=== PATIENT | female | born 1940 | race Caucasian/White ===

== ENCOUNTER 2023-12-03 12:36 | Observation (INO) ==
[2023-12-03 13:31] LABS: Basophils # (auto) 0.06 K/uL (0.00-0.20); Basophils % (auto) 0.5 %; Eosinophils # (auto) 0.09 K/uL (0.00-0.50); Eosinophils % (auto) 0.8 %; Hematocrit (blood only) 35.5 % (37.0-47.0); Hemoglobin 11.6 g/dl (12.0-16.0); Immature Granulocytes # (auto) 0.04 K/uL (0.01-0.20); Immature Granulocytes % (auto) 0.4 %; Lymphocytes # (auto) 3.21 K/uL (1.20-3.40); Lymphocytes % (auto) 29.4 %; Mean Corpuscular Hgb Conc 32.7 g/dL (32.0-36.0); Mean Corpuscular Volume 91.7 fL (80.0-100.0); Mean Platelet Volume 10.7 fL (9.4-12.4); Monocytes # (auto) 1.32 K/uL (0.11-0.59); Monocytes % (auto) 12.1 %; Neutrophils # (auto) 6.21 K/uL (1.40-6.50); Neutrophils % (auto) 56.8 %; Platelet Count 323 K/uL (130-400); RDW Coefficient of Variation 12.7 % (11.5-14.5); RDW Standard Deviation 41.5 fL (36.4-46.3); Red Blood Count 3.87 M/uL (4.20-5.40); White Blood Count 10.93 K/ul (4.8-10.8)
[2023-12-03 13:58] LABS: Albumin Globulin Ratio 1.3 (0.9-2); Albumin Level 4.2 gm/dl (3.4-5.0); BUN Creatinine Ratio 19.5 (10-20); Bilirubin,Total 0.6 mg/dl (0.2-1.0); Calcium 10.6 mg/dl (8.6-10.3); Creatinine Clr Calc Pharmacy 36.2 ml/min; Est GFR (African American) 44.8 ml/min; Est GFR (Non-African American) 38.6 ml/min; Globulin 3.2 gm/dl (2.5-4.0); Magnesium 1.4 mg/dl (1.7-2.4); Potassium 4.4 mmol/L (3.5-5.1); Total Protein 7.4 gm/dl (6.0-8.3)
[2023-12-03 14:01] LABS: Troponin I High Sensitivity 31.8 pg/ml (0-14)
[2023-12-03 14:05] LABS: Prothrombin Time 11.1 Seconds (9.0-12.0)
--- NOTE | 2023-12-03 14:11 | Emergency Department Note ---
Impression & Plan Generalized weakness, Hypoxia, Abdominal pain, Nausea & vomiting, Hypomagnesemia, Elevated lactic acid level, Non-ST elevation NC (NSTEMI) ED Provider Note HISTORY OF PRESENT ILLNESS: Patient is an 83-year-old female presenting with nausea and vomiting. Patient reportedly has been vomiting and unable to tolerate oral intake for the last 4 days. She is unable to tolerate even her medications. She was seen her primary care provider's office today and given her symptoms, was referred to the emergency department. Patient reports that she has upper abdominal pain. Has had a cholecystectomy and appendectomy in the past. She denies any fevers. Denies any recent sick contact exposures. Reports that she has been very weak in the last few weeks and has had difficulties getting around. Family reports that patient has been unable to ambulate today secondary to her weakness. No recent falls or head injuries. Denies any chest pain or significant shortness of breath. However, at the patient's PCPs office she was reportedly hypoxic to the upper 80s on room air. She does not wear any supplemental oxygen at baseline. Reportedly was off of Ozempic recently and restarted it just prior to her nausea and vomiting starting. ROS: as above PHYSICAL EXAM: Constitutional: Patient appears in no acute distress. HENT: Head: Normocephalic and atraumatic. Eyes: EOMI, PERRL Mouth/Throat: Mucous membranes moist. Neck: Trachea midline. Neck supple. Cardiovascular: RRR, No murmurs, rubs or gallops. Intact distal pulses. Pulmonary/Chest: No respiratory distress. Breath sounds clear and equal bilaterally. No wheezes or rales. Abdominal: Abdomen soft, no rebound or guarding. Epigastric TTP Musculoskeletal: No edema, tenderness or deformity noted. Skin: Warm and dry. No rash, erythema, pallor or cyanosis Psychiatric: Appropriate mood and affect for situation. Neurological: Alert and keenly responsive. CN II-XII grossly intact, moving all extremities equally and fully. MDM: - Vitals signs showed hypertension and tachycardia - History obtained via patient. Patient presents with nausea and vomiting. Patient reportedly has been vomiting and unable to tolerate any oral intake for the last 4 days. She has not been able to take her oral medications. She was seen at her PCPs office today and was also found to be hypoxic on room air and was sent to the emergency department. Family reports patient has been very weak and has been having difficulties getting around. Patient was unable to ambulate today secondary to her weakness. - Chronic conditions affecting care: DM-2; CKD; PVD; hypothyroidism; HTN - Differential diagnoses include, but are not limited to: viral syndrome; electrolyte abnormality; bowel obstruction; pneumonia; UTI - Order placed for continuous cardiac monitoring. At this time, monitor showed rate of 117 bpm with normal sinus rhythm, per my interpretation. - External medical records reviewed. EMS run sheet was reviewed. Patient was given 4 mg of IV Zofran and 350 mg of IV saline. - EKG interpreted by myself showed normal sinus rhythm. Rate 83 bpm. QTc 479. No acute ischemic changes. - Laboratory workup interpreted by myself showed slight leukocytosis (WBC 10.93); elevated lactate (2.3); elevated anion gap (12); CKD (Cr 1.23); elevated troponin (31.8); hypomagnesemia (Mg 1.4) - UA negative for infection - CXR negative for pneumonia, per my interpretation - CT abdomen/pelvis with IV contrast negative for acute pathology. Noted to have trace right pleural effusion - Patient given 1L NS and 4 mg IV zofran for symptomatic management. - Viral respiratory panel negative. - Given 1g IV magnesium for electrolyte replacement - Patient still vomiting and became tachycardic in ER. She is also on a new oxygen requirement. - Discussion was had with grounds caretaker about patient's case and need for admission - Hospitalist consulted for admission. Requested CT PE be obtained, given patient's hypoxia and acidosis. [facility] ASSESSMENT AND PLAN: Diagnosis: nausea and vomiting; hypomagnesemia; generalized weakness; hypoxia; elevated lactic acid; abdominal pain; NSTEMI Plan: admit Past Med/Surg History Medical History (Updated 12/03/23 @ 16:09 by Falguni Carty MD) Diabetes Hypertension CKD (chronic kidney disease) PVD (peripheral vascular disease) Hypothyroidism Lumbar degenerative disc disease History of iron deficiency anemia Esophageal spasm GERD (gastroesophageal reflux disease) Polyneuropathy in diabetes CKD (chronic kidney disease), stage III DM type 2 (diabetes mellitus, type 2) History of palpitations Migraine Rectal bleeding Heart palpitations Hypoxia HTN (hypertension) Osteoarthritis Surgical History H/O colonoscopy H/O esophagogastroduodenoscopy H/O breast biopsy S/P tonsillectomy and adenoidectomy History of hysterectomy S/P appendectomy Hx of cholecystectomy Family History Other Family history non-contributory Social History Smoking Status: Never smoker marital status: Current Living Situation: Spouse current occupational status: retired Feels Safe at Home: Yes Allergies Allergies Allergy/AdvReac Type Severity Reaction Status Date / Time sertraline [From Zoloft] Allergy itching Verified 12/03/23 16:41 venlafaxine [From Effexor] Allergy itching,panic Verified 12/03/23 16:41 attack lisinopril AdvReac Mild Cough Verified 12/03/23 16:41 baclofen AdvReac Unknown Dizziness Verified 12/03/23 16:41 levofloxacin AdvReac Unknown unkn Verified 12/03/23 16:41 meclizine AdvReac Unknown unkn Verified 12/03/23 16:41 tramadol AdvReac Unknown unkn Verified 12/03/23 16:41 nitroglycerin AdvReac passed Verified 12/03/23 16:41 out,hit head NSAIDS (Non-Steroidal AdvReac WORSENING Verified 12/03/23 16:41 Anti-Inflamma OF RENAL FUNCTION Home Meds Home Medications Medication Instructions Recorded Confirmed atorvastatin 40 mg tablet (Lipitor) 40 mg PO QAM 05/09/19 12/03/23 cholecalciferol (vitamin D3) 50 2,000 unit PO DAILY 05/09/19 12/03/23 mcg (2,000 unit) tablet (Vitamin D3) cyanocobalamin (vitamin B-12) 100 100 mcg PO DAILY 05/09/19 12/03/23 mcg tablet (Vitamin B-12) insulin glargine 100 unit/mL (3 26 unit subcut HS 05/09/19 12/03/23 mL) subcutaneous pen (Basaglar KwamberPen U-100 Insulin) latanoprost 0.005 % eye drops 1 drp OPB QPM 05/09/19 12/03/23 (Xalatan) omeprazole 20 mg capsule,delayed 20 mg PO DAILYBB 05/09/19 12/03/23 release amlodipine 2.5 mg tablet 2.5 mg PO DAILY 12/03/23 12/03/23 aspirin 81 mg tablet,delayed 81 mg PO [facility] 12/03/23 12/03/23 release escitalopram oxalate 20 mg tablet 20 mg PO DAILY 12/03/23 12/03/23 hydrocodone 5 mg-acetaminophen 325 1 tab PO Q8 PRN pain,severe 12/03/23 12/03/23 mg tablet levothyroxine 125 mcg tablet 125 mcg PO DAILYBB 12/03/23 12/03/23 losartan 25 mg tablet 25 mg PO M 12/03/23 12/03/23 metoprolol succinate 100 mg 150 mg PO QA 12/03/23 12/03/23 tablet,extended release 24 hr semaglutide 2 mg/dose (8 mg/3 mL) 2 mg subcut WK 12/03/23 12/03/23 subcutaneous pen injector (Ozempic) Results & Data (ED) Vital Signs Vital Signs - 24 hr 12/03/23 12:42 12/03/23 12:52 12/03/23 13:00 Temperature 36.8 C Temperature Source Oral Pulse Rate 82 81 81 Respiratory Rate 22 12 Respiratory Effort / Characteristics Short of Breath Blood Pressure 183/114 H 167/87 H Blood Pressure Mean 137 113 Pulse Oximetry 97 92 Oxygen Delivery Method Room Air Room Air Oxygen Flow Rate Sepsis Recent Fever Within 48 Hours No Sepsis New/Unexplained Change in Mental Status N/A Sepsis Action Taken by Nursing No Action Required Oxygen Flow Rate - Titration Pulse Oximetry Post Tiitration 12/03/23 13:08 12/03/23 13:31 12/03/23 14:00 Temperature Temperature Source Pulse Rate 93 H 101 H Respiratory Rate 16 21 Respiratory Effort / Characteristics Blood Pressure 196/98 H 154/88 H Blood Pressure Mean 130 110 Pulse Oximetry 82 L 92 97 Oxygen Delivery Method Nasal Cannula Nasal Cannula Nasal Cannula Oxygen Flow Rate 0 2 2 Sepsis Recent Fever Within 48 Hours Sepsis New/Unexplained Change in Mental Status Sepsis Action Taken by Nursing Oxygen Flow Rate - Titration 2 Pulse Oximetry Post Tiitration 99 12/03/23 15:02 12/03/23 15:33 12/03/23 16:01 Temperature Temperature Source Pulse Rate 124 H 122 H 113 H Respiratory Rate 35 H 28 H 22 Respiratory Effort / Characteristics Blood Pressure 170/98 H 153/95 H 174/125 H Blood Pressure Mean 122 114 141 Pulse Oximetry 97 97 98 Oxygen Delivery Method Nasal Cannula Nasal Cannula Nasal Cannula Oxygen Flow Rate 2 2 2 Sepsis Recent Fever Within 48 Hours Sepsis New/Unexplained Change in Mental Status Sepsis Action Taken by Nursing Oxygen Flow Rate - Titration Pulse Oximetry Post Tiitration 12/03/23 16:30 Temperature Temperature Source Pulse Rate 109 H Respiratory Rate 18 Respiratory Effort / Characteristics Blood Pressure 128/107 H Blood Pressure Mean 114 Pulse Oximetry 98 Oxygen Delivery Method Nasal Cannula Oxygen Flow Rate 2 Sepsis Recent Fever Within 48 Hours Sepsis New/Unexplained Change in Mental Status Sepsis Action Taken by Nursing Oxygen Flow Rate - Titration Pulse Oximetry Post Tiitration Laboratory Data 12/03/23 12:45 12/03/23 12:45 Lab Results 12/03/23 12/03/23 12/03/23 Range/Units 12:45 12:45 13:01 WBC 10.93 H (4.8-10.8) K/ul RBC 3.87 L (4.20-5.40) M/uL Hgb 11.6 L (12.0-16.0) g/dl Hct 35.5 L (37.0-47.0) % MCV 91.7 (80.0-100.0) fL MCH 30.0 (25.0-34.0) pg MCHC 32.7 (32.0-36.0) g/dL RDW Std Deviation 41.5 (36.4-46.3) fL RDW Coeff of Darlyn 12.7 (11.5-14.5) % Plt Count 323 (130-400) K/uL MPV 10.7 (9.4-12.4) fL Immature Gran % (Auto) 0.4 % Neut % (Auto) 56.8 % Lymph % (Auto) 29.4 % Dickens % (Auto) 12.1 % Eos % (Auto) 0.8 % Baso % (Auto) 0.5 % Neut # (Auto) 6.21 (1.40-6.50) K/uL Lymph # (Auto) 3.21 (1.20-3.40) K/uL Dickens # (Auto) 1.32 H (0.11-0.59) K/uL Eos # (Auto) 0.09 (0.00-0.50) K/uL Baso # (Auto) 0.06 (0.00-0.20) K/uL Immature Gran # (Auto) 0.04 (0.01-0.20) K/uL PT 11.1 (9.0-12.0) Seconds INR 1.0 (0.9-1.1) Sodium 140 (136-145) mmol/L Potassium 4.4 (3.5-5.1) mmol/L Chloride 103 (98-107) mmol/L Carbon Dioxide 25 (21-32) mmol/L Anion Gap 12 H (3-11) BUN 25 H (6-23) mg/dl Creatinine 1.28 H (0.6-1.2) mg/dl Est Cr Clr Drug Dosing 36.2 ml/min Est GFR ( Amer) 44.8 ml/min Est GFR (Non-Af Amer) 38.6 ml/min BUN/Creatinine Ratio 19.5 (10-20) Glucose 125 H (70-99(Fasting)) mg/dl Lactate 2.3 H* (0.4-2.0) mmol/L Calcium 10.6 H (8.6-10.3) mg/dl Magnesium 1.4 L (1.7-2.4) mg/dl Total Bilirubin 0.6 (0.2-1.0) mg/dl AST 18 (13-39) U/L ALT 9 (7-52) U/L Alkaline Phosphatase 85 (34-104) U/L Troponin I High Sens 31.8 H Cancelled (0-14) pg/ml Total Protein 7.4 (6.0-8.3) gm/dl Albumin 4.2 (3.4-5.0) gm/dl Globulin 3.2 (2.5-4.0) gm/dl Albumin/Globulin Ratio 1.3 (0.9-2) Lipase 14 (11-82) U/L Urine Color Urine Appearance (Clear) Urine pH (4.5-7.5) Ur Specific Crump (1.000-1.030) Urine Protein (Negative) Urine Glucose (UA) (Negative) Urine Ketones (Negative) Urine Blood (Negative) Urine Nitrite (Negative) Urine Bilirubin (Negative) Urine Urobilinogen (Negative) Ur Leukocyte Esterase (Negative) Urine WBC (Auto) (0-5) /hpf Urine RBC (Auto) (0-4) /hpf U Hyaline Cast (Auto) (0-5) /lpf U Epithel Cells (Auto) (0-5) /lpf Urine Bacteria (Auto) (Negative) Adenovirus (PCR) (NotDetected) B. pertussis DNA (PCR) (NotDetected) B.parapertussis DNA PCR (NotDetected) C. pneumoniae DNA (PCR) (NotDetected) Coronavirus OC43 (PCR) (NotDetected) Coronavirus HKU1 (PCR) (NotDetected) Coronavirus 229E (PCR) (NotDetected) SARS-CoV-2 (PCR) (NotDetected) Coronavirus NL63 (PCR) (NotDetected) Human Metapneumovir PCR (NotDetected) Influenza Type A (PCR) (NotDetected) Influenza Type B (PCR) (NotDetected) M. pneumoniae (PCR) (NotDetected) Parainfluenza 1 (PCR) (NotDetected) Parainfluenza 2 (PCR) (NotDetected) Parainfluenza 3 (PCR) (NotDetected) Parainfluenza 4 (PCR) (NotDetected) RSV (PCR) (NotDetected) Entero/Rhino (PCR) (NotDetected) 12/03/23 12/03/23 12/03/23 Range/Units 13:03 15:00 15:19 WBC (4.8-10.8) K/ul RBC (4.20-5.40) M/uL Hgb (12.0-16.0) g/dl Hct (37.0-47.0) % MCV (80.0-100.0) fL MCH (25.0-34.0) pg MCHC (32.0-36.0) g/dL RDW Std Deviation (36.4-46.3) fL RDW Coeff of Darlyn (11.5-14.5) % Plt Count (130-400) K/uL MPV (9.4-12.4) fL Immature Gran % (Auto) % Neut % (Auto) % Lymph % (Auto) % Dickens % (Auto) % Eos % (Auto) % Baso % (Auto) % Neut # (Auto) (1.40-6.50) K/uL Lymph # (Auto) (1.20-3.40) K/uL Dickens # (Auto) (0.11-0.59) K/uL Eos # (Auto) (0.00-0.50) K/uL Baso # (Auto) (0.00-0.20) K/uL Immature Gran # (Auto) (0.01-0.20) K/uL PT (9.0-12.0) Seconds INR (0.9-1.1) Sodium (136-145) mmol/L Potassium (3.5-5.1) mmol/L Chloride (98-107) mmol/L Carbon Dioxide (21-32) mmol/L Anion Gap (3-11) BUN (6-23) mg/dl Creatinine (0.6-1.2) mg/dl Est Cr Clr Drug Dosing ml/min Est GFR ( Amer) ml/min Est GFR (Non-Af Amer) ml/min BUN/Creatinine Ratio (10-20) Glucose (70-99(Fasting)) mg/dl Lactate (0.4-2.0) mmol/L Calcium (8.6-10.3) mg/dl Magnesium (1.7-2.4) mg/dl Total Bilirubin (0.2-1.0) mg/dl AST (13-39) U/L ALT (7-52) U/L Alkaline Phosphatase (34-104) U/L Troponin I High Sens 31.5 H (0-14) pg/ml Total Protein (6.0-8.3) gm/dl Albumin (3.4-5.0) gm/dl Globulin (2.5-4.0) gm/dl Albumin/Globulin Ratio (0.9-2) Lipase (11-82) U/L Urine Color Yellow Urine Appearance Clear (Clear) Urine pH 5.5 (4.5-7.5) Ur Specific Crump 1.013 (1.000-1.030) Urine Protein 2+ H (Negative) Urine Glucose (UA) Negative (Negative) Urine Ketones Negative (Negative) Urine Blood 1+ H (Negative) Urine Nitrite Negative (Negative) Urine Bilirubin Negative (Negative) Urine Urobilinogen Negative (Negative) Ur Leukocyte Esterase Negative (Negative) Urine WBC (Auto) 1-5 (0-5) /hpf Urine RBC (Auto) 0-4 (0-4) /hpf U Hyaline Cast (Auto) 1-5 (0-5) /lpf U Epithel Cells (Auto) 20-30 H (0-5) /lpf Urine Bacteria (Auto) Negative (Negative) Adenovirus (PCR) Not Detected (NotDetected) B. pertussis DNA (PCR) Not Detected (NotDetected) B.parapertussis DNA PCR Not Detected (NotDetected) C. pneumoniae DNA (PCR) Not Detected (NotDetected) Coronavirus OC43 (PCR) Not Detected (NotDetected) Coronavirus HKU1 (PCR) Not Detected (NotDetected) Coronavirus 229E (PCR) Not Detected (NotDetected) SARS-CoV-2 (PCR) Not Detected (NotDetected) Coronavirus NL63 (PCR) Not Detected (NotDetected) Human Metapneumovir PCR Not Detected (NotDetected) Influenza Type A (PCR) Not Detected (NotDetected) Influenza Type B (PCR) Not Detected (NotDetected) M. pneumoniae (PCR) Not Detected (NotDetected) Parainfluenza 1 (PCR) Not Detected (NotDetected) Parainfluenza 2 (PCR) Not Detected (NotDetected) Parainfluenza 3 (PCR) Not Detected (NotDetected) Parainfluenza 4 (PCR) Not Detected (NotDetected) RSV (PCR) Not Detected (NotDetected) Entero/Rhino (PCR) Not Detected (NotDetected) 12/03/23 Range/Units 15:25 WBC (4.8-10.8) K/ul RBC (4.20-5.40) M/uL Hgb (12.0-16.0) g/dl Hct (37.0-47.0) % MCV (80.0-100.0) fL MCH (25.0-34.0) pg MCHC (32.0-36.0) g/dL RDW Std Deviation (36.4-46.3) fL RDW Coeff of Darlyn (11.5-14.5) % Plt Count (130-400) K/uL MPV (9.4-12.4) fL Immature Gran % (Auto) % Neut % (Auto) % Lymph % (Auto) % Dickens % (Auto) % Eos % (Auto) % Baso % (Auto) % Neut # (Auto) (1.40-6.50) K/uL Lymph # (Auto) (1.20-3.40) K/uL Dickens # (Auto) (0.11-0.59) K/uL Eos # (Auto) (0.00-0.50) K/uL Baso # (Auto) (0.00-0.20) K/uL Immature Gran # (Auto) (0.01-0.20) K/uL PT (9.0-12.0) Seconds INR (0.9-1.1) Sodium (136-145) mmol/L Potassium (3.5-5.1) mmol/L Chloride (98-107) mmol/L Carbon Dioxide (21-32) mmol/L Anion Gap (3-11) BUN (6-23) mg/dl Creatinine (0.6-1.2) mg/dl Est Cr Clr Drug Dosing ml/min Est GFR ( Amer) ml/min Est GFR (Non-Af Amer) ml/min BUN/Creatinine Ratio (10-20) Glucose (70-99(Fasting)) mg/dl Lactate 3.8 H* (0.4-2.0) mmol/L Calcium (8.6-10.3) mg/dl Magnesium (1.7-2.4) mg/dl Total Bilirubin (0.2-1.0) mg/dl AST (13-39) U/L ALT (7-52) U/L Alkaline Phosphatase (34-104) U/L Troponin I High Sens (0-14) pg/ml Total Protein (6.0-8.3) gm/dl Albumin (3.4-5.0) gm/dl Globulin (2.5-4.0) gm/dl Albumin/Globulin Ratio (0.9-2) Lipase (11-82) U/L Urine Color Urine Appearance (Clear) Urine pH (4.5-7.5) Ur Specific Crump (1.000-1.030) Urine Protein (Negative) Urine Glucose (UA) (Negative) Urine Ketones (Negative) Urine Blood (Negative) Urine Nitrite (Negative) Urine Bilirubin (Negative) Urine Urobilinogen (Negative) Ur Leukocyte Esterase (Negative) Urine WBC (Auto) (0-5) /hpf Urine RBC (Auto) (0-4) /hpf U Hyaline Cast (Auto) (0-5) /lpf U Epithel Cells (Auto) (0-5) /lpf Urine Bacteria (Auto) (Negative) Adenovirus (PCR) (NotDetected) B. pertussis DNA (PCR) (NotDetected) B.parapertussis DNA PCR (NotDetected) C. pneumoniae DNA (PCR) (NotDetected) Coronavirus OC43 (PCR) (NotDetected) Coronavirus HKU1 (PCR) (NotDetected) Coronavirus 229E (PCR) (NotDetected) SARS-CoV-2 (PCR) (NotDetected) Coronavirus NL63 (PCR) (NotDetected) Human Metapneumovir PCR (NotDetected) Influenza Type A (PCR) (NotDetected) Influenza Type B (PCR) (NotDetected) M. pneumoniae (PCR) (NotDetected) Parainfluenza 1 (PCR) (NotDetected) Parainfluenza 2 (PCR) (NotDetected) Parainfluenza 3 (PCR) (NotDetected) Parainfluenza 4 (PCR) (NotDetected) RSV (PCR) (NotDetected) Entero/Rhino (PCR) (NotDetected) Administered Medications Magnesium Sulfate/Dextrose (Magnesium Sulfate / D5w) 1 gm in 100 mls @ 100 mls/hr IV NOW STA Stop: 12/03/23 16:59 Last Admin: 12/03/23 16:27 Dose: 100 mls/hr Documented By: [facility] Discontinued Medications Sodium Chloride (Nss) 1,000 mls @ 999 mls/hr IV .Q1H1M ONE Stop: 12/03/23 16:15 Last Infusion: 12/03/23 16:27 Dose: Infused Documented By: [facility] Admin: 12/03/23 15:18 Dose: 999 mls/hr Documented By: [facility] Sodium Chloride (Nss) 1,000 mls @ 999 mls/hr IV .Q1H1M ONE Stop: 12/03/23 16:42 Last Admin: 12/03/23 16:27 Dose: 999 mls/hr Documented By: LEMUEL Ioversol (Optiray 320 500ml) 87 ml IV ONCE ONE Stop: 12/03/23 14:26 Last Admin: 12/03/23 14:25 Dose: 87 ml Documented By: ENZO Ondansetron HCl (Ondansetron Inj 2 Mg/Ml 2 Ml Vial) 4 mg IV NOW STA Stop: 12/03/23 14:44 Last Admin: 12/03/23 15:11 Dose: 4 mg Documented By: LEMUEL Imaging Data Radiologist's Impression: Abdomen/Pelvis CT 12/03/23 14:08 CT OF THE ABDOMEN AND PELVIS WITH CONTRAST CLINICAL HISTORY: Upper abdominal pain and vomiting. COMPARISON STUDY: CT of the abdomen and pelvis May 24, 2016. TECHNIQUE: Following IV administration of 87 mL of Optiray, axial images of the abdomen and pelvis were obtained from the lung bases to the proximal femurs. Images were reviewed in the axial, sagittal, and coronal planes. IV contrast was administered without complication. Automated exposure control was utilized for the study. A dose lowering technique was utilized adhering to the principles of ALARA. CT DOSE: 1289.13 mGy.cm FINDINGS: A trace right pleural effusion is present. No pneumatosis, free air or portal venous gas is identified. There is no hepatic lesion. Biliary ductal dilatation is similar to prior CT. This is likely related to cholecystectomy. Liver morphology is normal. Spleen, adrenal glands and pancreas are unremarkable. There is no peripancreatic infiltration or fluid. There is no hydronephrosis. Numerous subcentimeter renal lesions are too small to characterize. There is extensive plaque within the abdominal aorta and branch vessels. The appendix is not visualized. Caliber and wall thickness of small and large bowel are normal. There is sigmoid diverticulosis without evidence for acute diverticulitis. There is no lymphadenopathy or ascites. No acute fractures are identified within the visualized skeletal structures. IMPRESSION: 1. No acute process within the abdomen or pelvis. 2. Biliary ductal dilatation, similar to prior CT. This is likely related to cholecystectomy. 3. No bowel obstruction. No bowel wall thickening. 4. Trace right pleural effusion. 5. Extensive plaque within the abdominal aorta and branch vessels. ACT 112: Negative or not required by law. Electronically signed by: James Fine M.D. 12/03/2023 2:49 PM Chest X-Ray 12/03/23 15:57 XR chest 1V portable HISTORY: 83 years-old Female shortness of breath acute shortness of breath COMPARISON: 05/24/2016 TECHNIQUE: AP view of the chest FINDINGS: Cardiac silhouette is enlarged. Atherosclerosis of the aorta. No pneumothorax or overt pulmonary edema. Mild bibasilar atelectasis with blunting of the left costophrenic angle. Degenerative changes of the shoulders and spine. IMPRESSION: No acute process. ACT 112: Negative or not required by law. The above report was generated using voice recognition software. It may contain grammatical, syntax or spelling errors. Electronically signed by: Marco Bullard M.D. 12/03/2023 4:36 PM Discharge Plan Visit Data Chief Complaint: Nausea Stated Complaint: NAUSEA, VOMITING ED Provider: Falguni Carty Discharge Problem: Generalized weakness, Hypoxia, Abdominal pain, Nausea & vomiting, Hypomagnesemia, Elevated lactic acid level, Non-ST elevation NC (NSTEMI) Forms Stand Alone Forms: [facility] Prescriptions Prescriptions: No Action latanoprost [Xalatan] 0.005 % drops 1 drp OPB QPM atorvastatin [Lipitor] 40 mg tablet 40 mg PO QAM cyanocobalamin (vitamin B-12) [Vitamin B-12] 100 mcg Tablet 100 mcg PO DAILY omeprazole 20 mg Capsule,Delayed Release(Dr/Ec) 20 mg PO DAILYBB insulin glargine [Basaglar KwikPen U-100 Insulin] 100 unit/mL (3 mL) insulin pen 26 unit subcut HS cholecalciferol (vitamin D3) [Vitamin D3] 2,000 unit Tablet 2,000 unit PO DAILY escitalopram oxalate 20 mg tablet 20 mg PO DAILY amlodipine 2.5 mg tablet 2.5 mg PO DAILY Ozempic 2 mg/dose (8 mg/3 mL) pen injector 2 mg SUBCUT WK levothyroxine 125 mcg tablet 125 mcg PO DAILYBB aspirin [Aspirin Low-Strength] 81 mg Tablet,Delayed Release (Dr/Ec) 81 mg PO QAM metoprolol succinate 100 mg tablet extended release 24 hr 150 mg PO QAM losartan 25 mg tablet 25 mg PO QAM hydrocodone-acetaminophen 5-325 mg tablet 1 tab PO Q8 PRN (Reason: pain,severe) Referrals Referrals: Alicia Pfeiffer, [Primary Care Provider] -
[2023-12-03] MEDS: OPTIRAY 320 500ml IV ONE (14:25)
[2023-12-03 14:41] LABS: Adenovirus PCR Not Detected (NotDetected); Bordetella parapertussis PCR Not Detected (NotDetected); Bordetella pertussis PCR Not Detected (NotDetected); Chlamydia pneumoniae PCR Not Detected (NotDetected); Coronavirus 229E PCR Not Detected (NotDetected); Coronavirus CoV-2 (COVID19)PCR Not Detected (NotDetected); Coronavirus HKU1 PCR Not Detected (NotDetected); Coronavirus NL63 PCR Not Detected (NotDetected); Coronavirus OC43PCR Not Detected (NotDetected); Human Metapneumovirus PCR Not Detected (NotDetected); Influenza A PCR Not Detected (NotDetected); Influenza B PCR Not Detected (NotDetected); Mycoplasma pneumoniae PCR Not Detected (NotDetected); Parainfluenza Virus 1 PCR Not Detected (NotDetected); Parainfluenza Virus 2 PCR Not Detected (NotDetected); Parainfluenza Virus 3 PCR Not Detected (NotDetected); Parainfluenza Virus 4 PCR Not Detected (NotDetected); Respiratory Syncytial VirusPCR Not Detected (NotDetected); Rhinovirus/Enterovirus PCR Not Detected (NotDetected)
--- NOTE | 2023-12-03 14:51 | CT Scan Report ---
CT OF THE ABDOMEN AND PELVIS WITH CONTRAST CLINICAL HISTORY: Upper abdominal pain and vomiting. COMPARISON STUDY: CT of the abdomen and pelvis May 24, 2016. TECHNIQUE: Following IV administration of 87 mL of Optiray, axial images of the abdomen and pelvis we re obtained from the lung bases to the proximal femurs. Images were reviewed in the axial, sagittal, and coronal planes. IV contrast was administered without complication. Automated exposure control wa s utilized for the study. A dose lowering technique was utilized adhering to the principles of ALARA . CT DOSE: 1289.13 mGy.cm FINDINGS: A trace right pleural effusion is present. No pneumatosis, free air or portal venous gas is identified. There is no hepatic lesion. Biliary ductal dilatation is similar to prior CT. This is li shaun related to cholecystectomy. Liver morphology is normal. Spleen, adrenal glands and pancreas are unremarkable. There is no peripancreatic infiltration or fluid. There is no hydronephrosis. Numerous subcentimeter renal lesions are too small to characterize. There is extensive plaque within the abdom inal aorta and branch vessels. The appendix is not visualized. Caliber and wall thickness of small an d large bowel are normal. There is sigmoid diverticulosis without evidence for acute diverticulitis. There is no lymphadenopathy or ascites. No acute fractures are identified within the visualized skele nereyda structures. IMPRESSION: 1. No acute process within the abdomen or pelvis. 2. Biliary ductal dilatation, similar to prior CT. This is likely related to cholecystectomy. 3. No bowel obstruction. No bowel wall thickening. 4. Trace right pleural effusion. 5. Extensive plaque within the abdominal aorta and branch vessels. ACT 112: Negative or not required by law. Electronically signed by: James Fine M.D. 12/03/2023 2:49 PM
[2023-12-03] MEDS: ONDANSETRON INJ 2 MG/ML 2 ML VIAL IV STA (15:11)
[2023-12-03] MEDS: SODIUM CHLORIDE 0.9% 1,000 ML IV ONE ×2 (15:18→16:27)
[2023-12-03 15:26] LABS: Appearance Urine Clear (Clear); Bacteria Urine Automated Negative (Negative); Bilirubin Urine Negative (Negative); Blood Urine 1+ (Negative); Color Urine Yellow; Epithelial Cell Urine Auto 20-30 /lpf (0-5); Glucose Urine UA Negative (Negative); Ketones Urine Negative (Negative); Leukocyte Esterase Urine Negative (Negative); Nitrite Urine Negative (Negative); Protein Urine 2+ (Negative); RBC Urine Automated 0-4 /hpf (0-4); Specific Gravity Urine 1.013 (1.000-1.030); Urobilinogen Urine Negative (Negative); pH Urine 5.5 (4.5-7.5)
--- NOTE | 2023-12-03 15:53 | Electrocardiogram Report ---
Test Reason : Blood Pressure : / mmHG Vent. Rate : 083 BPM Atrial Rate : 083 BPM P-R Int : 180 ms QRS Dur : 080 ms QT Int : 408 ms P-R-T Axes : 095 -51 058 degrees QTc Int : 479 ms Normal sinus rhythm Left anterior fascicular block Septal infarct , age undetermined Abnormal ECG When compared with ECG of 09-MAY-2019 15:19, QRS duration has decreased Confirmed by Toni Griffin ([id number]) on 12/03/2023 3:47:41 PM Referred By: Alicia Pfeiffer Confirmed By:Toni Griffin
[2023-12-03 16:05] LABS: Troponin I High Sensitivity 31.5 pg/ml (0-14)
[2023-12-03] MEDS: MAGNESIUM SULFATE / D5W 1 GM/100 ML BAG IV STA (16:27)
--- NOTE | 2023-12-03 16:38 | XRay Report ---
XR chest 1V portable HISTORY: 83 years-old Female shortness of breath acute shortness of breath COMPARISON: 05/24/2016 TECHNIQUE: AP view of the chest FINDINGS: Cardiac silhouette is enlarged. Atherosclerosis of the aorta. No pneumothorax or overt pulmonary john a. Mild bibasilar atelectasis with blunting of the left costophrenic angle. Degenerative changes of t he shoulders and spine. IMPRESSION: No acute process. ACT 112: Negative or not required by law. The above report was generated using voice recognition software. It may contain grammatical, syntax o r spelling errors. Electronically signed by: Marco Bullard M.D. 12/03/2023 4:36 PM
--- NOTE | 2023-12-03 16:58 | History & Physical Report ---
Date of Service December 03, 2023 Assessment & Plan (1) Nausea & vomiting: Plan: Uncertain cause but likely related to Ozempic, hold this for now. Effects are expected for a few more days with this weekly dosed medication. Cont supportive care. Clears and advance her diet as tolerated. (2) Hypoxia: Plan: Acute, Uncertain cause. Chest CT pending to rule out PE. Vomiting may also have caused some aspiration pneumonitis? No wheezing and lung exam is clear. Cont oxygen supplementation. Wean oxygen as tolerated. (3) New onset atrial fibrillation: Plan: Went from sinus rhythm into atrial fibrillation in the ER. TSH pending. With hypoxia and shortness of breath, fatigue, leg swelling, rule out PE with chest CT which is ordered. She has recently had a lung infection with persistent cough, respiratory biofire panel is negative, no UTI. CXR is clear. Ongoing nausea and vomiting on the same day she started her Ozempic. Suspect vomiting is 2/2 adverse effect of restarting ozempic at the elevated dose of 2mg. Differential also includes but not limited to GI infection, foodborne illness (history is not consistent with this), or anxiety which is not well controlled. Cont supportive care. Denies abdominal pain and CT a/p unremarkable for colitis, bowel obstruction, etc. Will order echo and will replace magnesium which is 1.4. Calcium elevation likely 2/2 some dehydration, and would repeat with BMP in am with workup if this doesn't resolve to normal range. Troponin is slightly elevated at 31, with repeat the same. Without chest pain, and no EKG findings of acute ischemia, ACS less likely. Suspect troponin elevation is from demand in setting of critically elevated blood pressures. Gave labetalol in the ER with improvement in her BP from 195 systolic to 170/76. She is on metoprolol at home which we will continue. Notably she did not take her medication this morning. Cardiology consulted. Starting heparin now with a chads-vasc of 5. Denies blood per rectum or other bleeding issues. (4) Hypertensive urgency: Plan: Driven partially if not totally by high anxiety state. Ativan PRN, cont Lexapro. Cont home antihypertensives. Labetalol IV now. (5) Elevated lactic acid level: Plan: resolved with IVF given in the ER (6) Hypomagnesemia: Plan: replete with 4gm IV magnesium now and repeat in am. (7) Generalized weakness: Plan: 2/2 illness x 3 weeks. PT/OT to evaluate. (8) Osteoarthritis: Plan: chronic, stable. controls pain with APAP or hydrocodone if severe. Continue. (9) DM type 2 (diabetes mellitus, type 2): Plan: Insulin dependent and on Ozempic rodent exterminator. chronic, A1C is around 9 which is somewhat poor control. Cont with glargine and novolog during this admission. Increase as she starts having more appetite. (10) CKD (chronic kidney disease), stage III: Plan: chronic, stable. Creatinine is at baseline. (11) Hypothyroidism: Plan: chronic, stable. Cont levothyroxine per home regimen. Full Code as discussed with she and her son on admission DVT prophy-heparin Dispo- to PCU. I spent a total [id number] coordinating, documenting, and providing care for this patient excluding time spent in the performance of separately billed services Mary Osorio DO [facility] Hospitalist History of Present Illness Chief Complaint: nausea Primary Care Provider: Alicia Pfeiffer DO 83-year-old diabetic female presents with 2.5 weeks of coughing and then began vomiting with significant nausea and persistent vomiting since Friday evening, a couple of days ago. She has no appetite. She is on insulin. She was recently out of Ozempic for 2 months and restarted 2 mg this last Friday, which is when her vomiting started. Shortness of breath and lower extremity edema is also reported in the past 3 weeks and generalized weakness. She lives alone and is able to ambulate with a cane. no abd pain no diarrhea, nauseated, worse and worse and then throwing up most of the nights tup (soda) helped but then threw up again she has been around lots of people for the holidays all three weeks since coughing she has felt short of breath--feels the coughing is improved. she is hypoxic today and ER physician reports that she was 82% on RA at one point She is doing fine on 2LPM oxygen supplementation Lexapro was recently decreased from 20mg to 10mg per her son, who is at bedside and assists with the history. He feels this worsened her anxiety which was typically under good control prior to this. feet swelling for the past week. No swelling or edema is present on exam today Patient denies any pain in her calves or thighs bilaterally. no chest pain no urinary symptoms normal BMs but hasn't moved her bowels in the last few days hasn't eaten anything x toast this am. Last vomited at 0600 this am. Open to try some broth at this point. ramen noodles and broth last night, able to hold it down . Allergies Allergy/AdvReac Type Severity Reaction Status Date / Time sertraline [From Zoloft] Allergy itching Verified 12/03/23 16:41 venlafaxine [From Effexor] Allergy itching,panic Verified 12/03/23 16:41 attack lisinopril AdvReac Mild Cough Verified 12/03/23 16:41 baclofen AdvReac Unknown Dizziness Verified 12/03/23 16:41 levofloxacin AdvReac Unknown unkn Verified 12/03/23 16:41 meclizine AdvReac Unknown unkn Verified 12/03/23 16:41 tramadol AdvReac Unknown unkn Verified 12/03/23 16:41 nitroglycerin AdvReac passed Verified 12/03/23 16:41 out,hit head NSAIDS (Non-Steroidal AdvReac WORSENING Verified 12/03/23 16:41 Anti-Inflamma OF RENAL FUNCTION Home Medications Medication Instructions Recorded Confirmed Type atorvastatin 40 mg tablet (Lipitor) 40 mg PO QAM 05/09/19 12/03/23 History cyanocobalamin (vitamin B-12) 100 100 mcg PO DAILY 05/09/19 12/03/23 History mcg tablet (Vitamin B-12) insulin glargine 100 unit/mL (3 26 unit subcut HS 05/09/19 12/03/23 History mL) subcutaneous pen (Basaglar KwikPen U-100 Insulin) latanoprost 0.005 % eye drops 1 drp OPB QPM 05/09/19 12/03/23 History (Xalatan) omeprazole 20 mg capsule,delayed 20 mg PO DAILYBB 05/09/19 12/03/23 History release acetaminophen 650 mg tablet 1,300 mg PO QAM PRN Pain 12/03/23 12/03/23 History amlodipine 2.5 mg tablet 2.5 mg PO DAILY 12/03/23 12/03/23 History aspirin 81 mg tablet,delayed 81 mg PO QAM 12/03/23 12/03/23 History release escitalopram oxalate 20 mg tablet 20 mg PO DAILY 12/03/23 12/03/23 History hydrocodone 5 mg-acetaminophen 325 1 tab PO Q8 PRN pain,severe 12/03/23 12/03/23 History mg tablet insulin aspart U-100 100 unit/mL See Rx Instructions .Route .COMPLEX 12/03/23 12/03/23 History (3 mL) subcutaneous pen (Novolog FlexPen U-100 Insulin aspart) levothyroxine 125 mcg tablet 125 mcg PO DAILYBB 12/03/23 12/03/23 History losartan 25 mg tablet 25 mg PO QAM 12/03/23 12/03/23 History metoprolol succinate 100 mg 150 mg PO QAM 12/03/23 12/03/23 History tablet,extended release 24 hr semaglutide 2 mg/dose (8 mg/3 mL) 2 mg subcut WK 12/03/23 12/03/23 History subcutaneous pen injector (Ozempic) Past Med/Surg History Medical History (Updated 12/03/23 @ 19:11 by Mary Osorio DO) Diabetes Hypertension CKD (chronic kidney disease) PVD (peripheral vascular disease) Hypothyroidism Lumbar degenerative disc disease History of iron deficiency anemia Esophageal spasm GERD (gastroesophageal reflux disease) Polyneuropathy in diabetes CKD (chronic kidney disease), stage III DM type 2 (diabetes mellitus, type 2) History of palpitations Migraine Rectal bleeding Heart palpitations Hypoxia HTN (hypertension) Osteoarthritis Surgical History H/O colonoscopy H/O esophagogastroduodenoscopy H/O breast biopsy S/P tonsillectomy and adenoidectomy History of hysterectomy S/P appendectomy Hx of cholecystectomy Family History Other Family history non-contributory Social History (Updated 12/03/23 @ 18:01 by Mary Osorio DO) Smoking Status: Never smoker Tobacco Cessation Education Requested by Patient: No Hx Alcohol Use: No Hx Substance Use: No Preferred Language: Yi marital status: / Current Living Situation: Alone and Spouse current occupational status: retired Feels Safe at Home: Yes Physical Exam Physical Exam: CONSTITUTIONAL: obese, vitals as above, BP went from 175 systolic to 195 systolic since I have been in the room, patient appears anxious EYES: PERRL, normal conjunctivae, no scleral icterus ENT: external ear and nose normal,MMM NECK: trachea midline RESPIRATORY: clear to auscultation bilaterally, no crackles, rales or wheezes, normal respiratory effort CARDIOVASCULAR: tachy rate that is irregular with irreg rhythm, S1 and 2 heard without murmurs, gallops or rubs, no JVD, no peripheral edema CHEST: inspection of chest was normal GASTROINTESTINAL: soft, nontender, ND, no guarding MUSCULOSKELETAL: generalized weakness, head is normocephalic and atraumatic SKIN: warm and dry NEUROLOGIC: CN 2-12 grossly intact, no sensory deficit, normal cognition, normal speech, no tremor PSYCHIATRIC: alert cooperative and oriented to person, place and time. ++anxious, makes good eye contact, language grossly intact, recent and remote memory grossly intact. Results & Data Results & Data Vital Signs (Past 12 Hours) Vital Signs Temp Pulse Resp BP Pulse Ox O2 Del Method O2 Flow Rate 12/03/23 16:30 109 H 18 128/107 H 98 Nasal Cannula 2 12/03/23 16:01 113 H 22 174/125 H 98 Nasal Cannula 2 12/03/23 15:33 122 H 28 H 153/95 H 97 Nasal Cannula 2 12/03/23 15:02 124 H 35 H 170/98 H 97 Nasal Cannula 2 12/03/23 14:00 101 H 21 154/88 H 97 Nasal Cannula 2 12/03/23 13:31 93 H 16 196/98 H 92 Nasal Cannula 2 12/03/23 13:08 82 L Nasal Cannula 0 12/03/23 13:00 81 12 167/87 H 92 Room Air 12/03/23 12:52 81 12/03/23 12:42 36.8 C 82 22 183/114 H 97 Room Air Laboratory Results Short CBC 12/03/23 Range/Units 12:45 WBC 10.93 H (4.8-10.8) K/ul Hgb 11.6 L (12.0-16.0) g/dl Hct 35.5 L (37.0-47.0) % Plt Count 323 (130-400) K/uL BMP 12/03/23 12:45 Sodium 140 Potassium 4.4 Chloride 103 Carbon Dioxide 25 BUN 25 H Creatinine 1.28 H Glucose 125 H Calcium 10.6 H Liver Function 12/03/23 Range/Units 12:45 Total Bilirubin 0.6 (0.2-1.0) mg/dl AST 18 (13-39) U/L ALT 9 (7-52) U/L Alkaline Phosphatase 85 (34-104) U/L Albumin 4.2 (3.4-5.0) gm/dl Urine 12/03/23 Range/Units 15:00 Urine Color Yellow Urine Appearance Clear (Clear) Urine pH 5.5 (4.5-7.5) Ur Specific [place] 1.013 (1.000-1.030) Urine Protein 2+ H (Negative) Urine Glucose (UA) Negative (Negative) Diagnostic Findings Abdomen/Pelvis CT 12/03/23 14:08 CT OF THE ABDOMEN AND PELVIS WITH CONTRAST CLINICAL HISTORY: Upper abdominal pain and vomiting. COMPARISON STUDY: CT of the abdomen and pelvis May 24, 2016. TECHNIQUE: Following IV administration of 87 mL of Optiray, axial images of the abdomen and pelvis were obtained from the lung bases to the proximal femurs. Images were reviewed in the axial, sagittal, and coronal planes. IV contrast was administered without complication. Automated exposure control was utilized for the study. A dose lowering technique was utilized adhering to the principles of ALARA. CT DOSE: 1289.13 mGy.cm FINDINGS: A trace right pleural effusion is present. No pneumatosis, free air or portal venous gas is identified. There is no hepatic lesion. Biliary ductal dilatation is similar to prior CT. This is likely related to cholecystectomy. Liver morphology is normal. Spleen, adrenal glands and pancreas are unremarkable. There is no peripancreatic infiltration or fluid. There is no hydronephrosis. Numerous subcentimeter renal lesions are too small to characterize. There is extensive plaque within the abdominal aorta and branch vessels. The appendix is not visualized. Caliber and wall thickness of small and large bowel are normal. There is sigmoid diverticulosis without evidence for acute diverticulitis. There is no lymphadenopathy or ascites. No acute fractures are identified within the visualized skeletal structures. IMPRESSION: 1. No acute process within the abdomen or pelvis. 2. Biliary ductal dilatation, similar to prior CT. This is likely related to cholecystectomy. 3. No bowel obstruction. No bowel wall thickening. 4. Trace right pleural effusion. 5. Extensive plaque within the abdominal aorta and branch vessels. ACT 112: Negative or not required by law. Electronically signed by: James Fine M.D. 12/03/2023 2:49 PM Chest X-Ray 12/03/23 15:57 XR chest 1V portable HISTORY: 83 years-old Female shortness of breath acute shortness of breath COMPARISON: 05/24/2016 TECHNIQUE: AP view of the chest FINDINGS: Cardiac silhouette is enlarged. Atherosclerosis of the aorta. No pneumothorax or overt pulmonary edema. Mild bibasilar atelectasis with blunting of the left costophrenic angle. Degenerative changes of the shoulders and spine. IMPRESSION: No acute process. ACT 112: Negative or not required by law. The above report was generated using voice recognition software. It may contain grammatical, syntax or spelling errors. Electronically signed by: Marco Bullard M.D. 12/03/2023 4:36 PM Code Status & VTE Plan VTE Prophylaxis Plan VTE Prophylaxis will be ordered: Yes
[2023-12-03] MEDS ORDERED: GLUCOSE 10 TAB/TUBE PO PRN (17:08)
[2023-12-03] MEDS ORDERED: DEXTROSE 50% 50 ML SYRINGE IV PRN (17:08)
[2023-12-03] MEDS ORDERED: GLUCAGON FOR INJ 1 MG VIAL SQ PRN (17:08)
[2023-12-03] MEDS ORDERED: CARBOHYDRATES FOR HYPOGLYCEMIA PO PRN (17:08)
[2023-12-03] MEDS ORDERED: GLUCOSE 40% GEL 15 GM TUBE PO PRN (17:08)
[2023-12-03] MEDS ORDERED: ONDANSETRON INJ 2 MG/ML 2 ML VIAL IV PRN (17:08)
[2023-12-03] MEDS: LABETALOL HCL IV 5 MG/ML 20ML IV STA (18:19)
[2023-12-03] MEDS ORDERED: LORazepam 0.25 MG in SYRINGE 0.25 ML IV PRN (18:34)
[2023-12-03 19:14] LABS: Thyroid Stimulating Hormone 5.157 uIu/ml (0.300-4.500)
[2023-12-03] MEDS: OPTIRAY 320 125ml IV ONE (19:16)
[2023-12-03 19:49] LABS: T4 Free Thyroxine 1.08 ng/dl (0.61-1.60)
[2023-12-03] MEDS: LORazepam 0.25 MG in SYRINGE 0.125 ML IV PRN (19:56)
--- NOTE | 2023-12-03 20:17 | CT Scan Report ---
Exam(s): CTA CHEST IV Amt: 116ml optiray 320 EXAM: CT Angiography Chest With Intravenous Contrast CLINICAL HISTORY: Reason for exam: PE. TECHNIQUE: Axial computed tomographic angiography images of the chest with intravenous contrast. CTDI is 70 mGy and DLP is 1280.56 mGy-cm. Automated exposure control was utilized for the study. A dose lowering technique was utilized adhering to the principles of ALARA. MIP reconstructed images were created and reviewed. COMPARISON: No relevant prior studies available. FINDINGS: Pulmonary arteries: Unremarkable. No acute pulmonary embolism. Aorta: No acute findings. No thoracic aortic aneurysm. Lungs: Unremarkable. No mass. No consolidation. Pleural space: Unremarkable. No focal consolidation, pleural effusion, or pneumothorax. Heart: Mild cardiomegaly. No significant pericardial effusion. No evidence of RV dysfunction. Bones/joints: No acute fracture. No dislocation. Soft tissues: Unremarkable. Lymph nodes: Unremarkable. No enlarged lymph nodes. Gallbladder and bile ducts: Cholecystectomy. IMPRESSION: 1. No acute pulmonary embolism. 2. No focal consolidation, pleural effusion, or pneumothorax. Electronically signed by: Jayden Roberson MD 12/03/23 20:16 PM
[2023-12-03] MEDS: MAGNESIUM SULFATE / D5W 1 GM/100 ML BAG IV SCH (20:59)
[2023-12-03] MEDS: HEPARIN SODIUM/DEXTROSE 25,000 UNITS/500 ML BAG IV SCH (21:00)
[2023-12-03] MEDS: HEPARIN SOD (PORCINE) 1000 UNIT/ML IV ONE (21:00)
--- OUTSIDE RECORDS SUMMARY | 2023-12-03 21:04 | External Medical Summary | Summary of Care ---
Author Name Unknown Organization [facility] Address [address] [facility] [place] [address] Phone [phone] Care Team Providers Care Echocardiography Radiology Technologist Name Role Phone Pfeiffer, Alicia Irish HERRREA Primary Care Provider + [phone] Reason for Visit * Reason Comments eRx-Medication Refill Encounter Details Date Type Department Care Team (Late st Contact Info) Description 11/27/2023 Refill Family Medicine [address] [phone] Erika Swanson PAHalle [address] [place] [address] [place] [address] Allergies Active Allergy Reactions Criticality Noted Date Comments Baclofen Other (Please comment) 01/06/2018 Dizzy, nausea Venlafaxine 09/25/2020 Itching, panic attack Levofloxacin Hemihydrate 03/19/2005 nausea,sleeplessne ss Lisinopril Cough Low 06/01/2013 Meclizine 12/22/2003 made dizziness worse Nitroglycerin 02/28/2022 Passed out, hit head Nsaids Renal complications High 12/26/2008 Worsening of renal function Tramadol Hcl 10/17/2003 dizziness,syncope Sertraline Hcl Itching Low 06/15/2019 itching documented as of this encounter (statuses as of 11/27/2023) Medications Medication Sig Dispensed Refills Start Date End Date Status VITAMIN B-12 100 MCG PO TABSIndications:DM type 2, goal A1c below 7 1 po daily 30 5 10/27/20 07 Active XALATAN 0.005 % OP SOLNIndications: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 30 Tab 0 08/14/20 18 Active Tylenol 8 Hour Arthritis Pain 650 MG Oral Tablet Extended Release Take 1 Tablet by mouth every 8 hours as needed. 0 Active OneTouch Verio In Vitro Strip (Glucose Blood) Use to test blood sugars up to three times daily DxE11.9 100 Strip 3 02/27/20 23 Active BD Pen Needle Mini U/F 31G X 5 MM (Insulin Pen Needle) use 1 PEN NEEDLE to inject MEDICATION subcutaneously 5 times a day 500 Each 3 04/30/20 23 Active Insulin Glargine Solostar 100 UNIT/ML Subcutaneous Solution Pen-injector (Basaglar KwikPen)Indication s:Type 2 diabetes mellitus with stage 3 chronic kidney disease, without long-term current use of insulin ([facility]) inject 26 units subcutaneously at bedtime 30 mL 3 07/31/20 23 Active Ozempic (2 MG/DOSE) 8 MG/3ML Subcutaneous Solution Pen-injector (Semaglutide (2 MG/DOSE)) INJECT 2MG UNDER THE SKIN ONCE WEEKLY 3 mL 1 08/07/20 23 Active Omeprazole 20 MG Oral Capsule Delayed Release (PriLOSEC)Indicati ons:Gastroesophage al reflux disease without esophagitis Take 1 Capsule by mouth in the morning. 1 hour before the first meal of the day. 90 Capsule 3 09/03/20 23 Active amLODIPine Besylate 2.5 MG Oral Tablet (Norvasc)Indicatio ns:HTN, goal below 140/90 Take 1 Tablet by mouth in the morning. 90 Tablet 3 09/03/20 23 Active FreeStyle Oscar 2 Sensor Use as directed. Change every 14 days. 3 Each 3 09/19/20 23 Active HYDROcodone-Acetam inophen 5-325 MG Oral TabletIndications: Degeneration of lumbosacral intervertebral disc Take 1 Tablet by mouth every 8 hours as needed for Pain, Severe. Continued script 30 Tablet 0 09/25/20 23 Active Levothyroxine Sodium 125 MCG Oral Tablet (Levoxyl)Indicatio ns:Acquired hypothyroidism TAKE 1 TABLET BY MOUTH IN THE MORNING. (AT LEAST 30 MIN PRIOR TO BREAKFAST OR OTHER MEDS). 90 Tablet 3 10/16/20 Active NovoLOG FlexPen 100 UNIT/ML Subcutaneous Solution Pen-injector (insulin aspart)Indications :Type 2 diabetes mellitus with hemoglobin A1c goal of less than 7.0% (HCC),Type 2 diabetes mellitus with stage 3b chronic kidney disease, without long-term current use of insulin (HCC) PER SLIDING SCALE 4 TIMES A DAY (APPOX 40 UNITS PER DAY)DX E11.9 36 mL 1 10/22/20 Active Escitalopram Oxalate 20 MG Oral Tablet (Lexapro) One daily 90 Tablet 1 11/25/20 Active Atorvastatin Calcium 40 MG Oral Tablet (Lipitor)Indicatio ns:Dyslipidemia, goal LDL below 100 TAKE 1 TABLET BY MOUTH EVERY DAY IN THE MORNING 90 Tablet 1 11/27/20 Active Losartan Potassium 25 MG Oral Tablet (Cozaar)Indication s:Bradycardia,Esse ntial hypertension with goal blood pressure less than 140/90 TAKE 1 TABLET BY MOUTH EVERY DAY IN THE MORNING 90 Tablet 1 11/27/20 Active Metoprolol Succinate ER 100 MG Oral Tablet Extended Release 24 Hour (toPROL XL) TAKE 1.5 TABLETS BY MOUTH IN THE MORNING. 135 Tablet 3 11/27/20 Active Metoprolol Succinate ER 100 MG Oral Tablet Extended Release 24 Hour (toPROL XL) Take 1.5 Tablets by mouth in the morning. 135 Tablet 3 11/21/20 22 023 Discontinued documented as of this encounter (statuses as of 11/27/2023) Active Problems Problem Noted Date Diagnosed Date Type 2 diabetes mellitus wit h stage 3b chronic kidney disease, with long-term current use of insulin 04/10/2021 Overview: Per CKD protocol Chronic kidney disease, stage 3b 04/10/2021 Overview: Per CKD protocol Spinal stenosis of lumbar re gion without neurogenic claudication 04/02/2021 Hypertensive kidney disease with stage 3b chronic kidney disease 10/09/2020 Overview: Per CKD protocol Abnormal MRI, spine 07/11/2020 Type 2 diabetes mellitus with diabetic neuropath y 05/31/2019 Diabetes mellitus type 2 with peripheral artery disease 05/10/2019 Current moderate episode of major depressive disorder without prior episode 05/10/2019 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 diabetes mellitus 05/03/2019 Type 2 diabetes mellitus wit h hemoglobin A1c goal of less than 8.0% 08/07/2018 Primary osteoarthritis of both hands 01/06/2018 Low HDL (under 40) 11/08/2015 Peripheral sensory neuropathy 09/25/2015 CECILIA inhibitor intolerance 06/01/2013 Esophageal spasm 02/23/2013 Esophageal reflux 05/07/2011 DM type 2 causing neurological disease 1 Degeneration of lumbosacral intervertebral disc 05/16/2010 Severe obesity with body mas s index (BMI) of 35.0 to 39.9 with serious comorbidity 05/14/2010 Overview: Per Obesity Protocol, #19 ICD-10 update of inactive diagnosis Hyperlipidemia with target LDL less than 70 07/2009 Overview: Per Lipid Taxonomy. HTN, goal below 140/90 10/06/2009 Overview: Modified per HTN Taxonomy. Vitamin B deficiency 08/12/2008 CLASSICAL MIGRAINE WITHOU MENTION OF INTRACTABLE MIGRAINE Senile osteoporosis Acquired hypothyroidism documented as of this encounter (statuses as of 11/27/2023) Resolved Problems Problem Noted Date Diagnosed Date Resolved Date Hypertensive kidney disease with CKD stage III 05/10/2019 10/12/2020 Overview: Per CKD protocol Type 2 diabetes mellitus wit h stage 3 chronic kidney disease, with long-term current use of insulin 05/10/2019 04/12/2021 Overview: Per CKD protocol Severe obesity with body mas s index (BMI) of 35.0 to 39.9 with serious comorbidity 08/07/2018 Overview: ICD-10 update of inactive diagnosis Skin ulcer of toe of right f oot, limited to breakdown of skin 08/07/2018 08/10/2019 Vitamin D deficiency 08/07/201803/22/ 020 MEDICATION USE AGREEMENT 09/23/2017 Controlled substance agreement signed 06/30/2017 06/21/2020 Iron deficiency anemia due t o chronic blood loss 06/06/2016 08/23/2022 HTN, goal below 150/90 05/30/201601/03 Overview: Per Nephrology HTN, goal below 140/80 04/25/201605/16 Type 2 diabetes mellitus wit h diabetic chronic kidney disease 09/25/2015 05/31/2019 DM neuropathy, type I diabetes mellitus 09/25/2015 02/22/2016 DM type 2 causing CKD stage 3 09/25/2015 10/19/2015 Seborrheic keratosis 08/23/2015 018 Hypertension goal BP (blood pressure) < 140/90 11/23/2014 06/24/2016 Lumbar degenerative disc disease 07/29/2013 07/29/2013 Type 2 diabetes mellitus wit h hemoglobin A1c goal of less than 7.0% 12/30/2011 08/07/2018 Overview: ICD-10 update of inactive term PVD (PERIPHERAL VASCULAR DIS EASE) DUE DIABETES (250.7=) 08/27/2011 06/11/2019 ANGIOEDEMA 06/07/2011 01/06/2018 Other specified urticaria 06/07/2011 Overview: began 05/02/2011 Diabetic polyneuropathy 01/16/201109/01 Overview: ICD-10 update of inactive term HTN, goal below 130/80 10/18/200911/23 Type 2 diabetes mellitus wit h hemoglobin A1c goal of less than 7.0% 09/14/2009 12/03/2011 Overview: Modified per Diabetes protocol #14. ICD-10 update of inactive term Slow transit constipation 04/28/2009 DM type 2, not at goal 04/11/200909/14 Overview: Modified per Diabetes protocol #14. Primary localized osteoarthrosis, lower leg 12/29/2008 01/06/2018 Mixed dyslipidemia 09/09/2008 9 Overview: Per Lipid Taxonomy. Other iron deficiency anemia 09/09/2008 02/23/2013 Overview: ICD-10 update of inactive term DIAB RENAL MANIF ADULT 06/22/200809/25 Overview: Added per DM w/ renal complications protocol #4 Kidney disease, chronic, sta ge III (GFR 30-59 ml/min) 01/13/2008 06/10/2019 Overview: Based on labs 08-07-07 BENIGN HYPERTENSION 11/10/2003 10/06/20 Overview: Modified per HTN Taxonomy. Palpitations 08/25/2017 Type 2 diabetes mellitus wit h hemoglobin A1c goal of less than 7.0% 04/11/2009 Overview: ICD-10 update of inactive term PURE HYPERCHOLESTEROLEM 08/31 Hypothyroidism 08/12/2008 Calculus of gallbladder with out mention of cholecystitis or obstruction 08/12/2008 Abnormal results of liver function studies 06/26/2010 documented as of this encounter (statuses as of 11/27/2023) Immunizations Name Administration Dates Next Due COVID-19 mRNA, LNP-s, No Pre serve, 2-Dose Series (Moderna) 02/01/2021,01/04/2021 H1N1 2009 Influenza, IM 10/01/2009 Pneumococcal Conjugate Vacc, 13 Valent (Prevnar) 01/16/2015 Pneumococcal Polysaccharide PPV23 (Pneumovax) 06/13/2006,09/10/1995 Season Influenza, Quad, PF, Adjuvanted, 65+ Yrs, IM (FLUAD) 09/08/2020 Seasonal Influenza, PF, 6 M & above, IM , (FluLaval or Fluzone) 09/21/2018,08/25/2017 Seasonal Influenza, Quadriva lent Hd (Fluzone Hd) 09/03/2023,08/14/2022,08/14/2021 Seasonal Influenza, Quadriva lent, No Preserve, IM 09/19/2016,09/25/2015 Seasonal Influenza, Split, I IV3, With Preserve, Inj 08/22/2014,09/08/2013,08/12/2012,08/27,08/16/2010,09/05/2009,09/09/2008 ,09/17/2007,09/12/2006 Seasonal Influenza, Trivalen t, Adjuvanted, 65+ yrs 09/13/2019 TD, Preservative Free 08/12/2008 TDAP (age 10 and older)(Boostrix) 11/12/2018 Varicella Zoster Vaccine (Adult) 12/01/2009 Zoster Vaccine Recombinant (Shingrix) 05/19/2020 ,01/03/2020,08/07/2018 documented as of this encounter Social History Tobacco Use Types Packs/Day Years Used Date Smoking Tobacco: Never Smokeless Tobacco: Never Comments:no passive smoke ex posures Alcohol Use Standard Drinks/Week Comments No 0 (1 standard drink = 0.6 oz pur e alcohol) PHQ-2 Answer Date Recorded PHQ Adult Total Score 0 02/12/2022 Hunger Vital Sign Answer Date Recorded Worried About Running Out of Food in the Last Ye ar Never true 08/10/2019 Ran Out of Food in the Last Year Never true 08/10/2019 Sex and Gender Information Value Date Recorded Sex Assigned at Not on file Gender Identity Not on file Sexual Orientation Straight 10/02/2019 3: 49 PM EDT Job Start Date Occupation Industry Not on file Not on file Not on file documented as of this encounter Miscellaneous Notes * Telephone Encounter - Vinod Duncan RPh - 11/27/2023 10:13 PM EST Signed Prescriptions: Disp Refills Metoprolol Succinate ER 100 MG Oral Tablet*135 Ta*3 Sig: TAKE 1.5 TABLETS BY MOUTH IN THE MORNING.Authorizing Provider: ERIKA SWANSON User: VINOD DUNCAN documented in this encounter Plan of Treatment Upcoming Encounters Date Type Department Care Team (Late st Contact Info) Description 11/28/2023 10:30 AM EST Office Visit [facility] Medicine [address] [place] [phone] Alicia Pfeiffer, [address] [place] [id number] 03/19/2024 2:30 PM EDT Office Visit Family Medicine [address] [place] [phone] Alicia Pfeiffer, [address] [place] [phone] Health Maintenance Due Date Last Done Comments Hepatitis B (1 of 3 - Risk 3-dose series) 2000 *BISPHONATE OR OTHER ACCEPTABLE MEDICATION NEEDED FOR OSTEOPOROSIS (REFER TO SMARTSET #1146) 09/18/2022 Depression Screening 02/12/2023 02/12/2022 Albumin/Creatinine Ratio 02/29/2024 023, 05/17/2022, 08/07/2021, Additional history exists Diabetic Foot Exam 02/29/2024 02/28/2023, 0 02/12/2022, 04/10/2021, Additional history exists GFR 03/04/2024 09/03/2023, 03/2023, 07/24/2023, Additional history exists HbA1c 03/04/2024 09/03/2023, 01/31, 11/21/2022, Additional history exists Diabetic Eye Exam 08/18/2024 08/18/2023, , 05/26/2020, Additional history exists DXA Scan 08/27/2024 08/27/2022, 0 03/2016, 10/05/2013, Additional history exists CKD HGB USE SMARTSET 54722 09/03/202409/03, 09/03/2023, 07/24/2023, Additional history exists CKD PHOS USE SMARTSET 14282 09/03/2024 100 03/2023, 05/17/2022, 01/29/2021, Additional history exists TSH 09/03/2024 09/03/2023, 01/31, 06/14/2022, Additional history exists DTaP,Tdap,and Td Vaccines (2 - Td or Tdap) 11/12/2028 11/12/2018, 08/12/2008 Pneumococcal Vaccine: 65+ Years Completed 01/16/2015, 06/13/2006, 09/10/1995 Zoster Vaccines Completed 05/19/2020, 01/2020, 08/07/2018, Additional history exists VITAMIN D LEVEL ONCE IN A LIFETIME-USE SMARTSET# 01500 Completed 01/29/2021, 06/07/2020, 07/12/2019, Additional history exists COVID-19 Vaccine Completed 09/03/2023, 03/2021, 01/04/2021 Influenza Vaccine (FLU shot) Completed 03/2023, 08/14/2022, 08/14/2021, Additional history exists GARDASIL-HPV IMMUNIZATION SERIES Aged Out No longer eligible based on patient's age to complete this topic MENINGOCOCCAL (MENACTRA/MENVEO) Aged Out No longer eligible based on patient's age to complete this topic documented as of this encounter Medical Devices Not on filedocumented as of this encounter Care Teams Echocardiography Radiology Technologist Relationship Specialty Start Date End Date Alicia Pfeiffer DO [address] [place] [address] [place] [phone] PCP - General Internal Medicine 08/25/17 documented as of this encounter
--- OUTSIDE RECORDS SUMMARY | 2023-12-03 21:05 | External Medical Summary | Summary of Care ---
Author Name Unknown Organization [facility] Address [address] [facility] [place] [address] Phone [phone] Care Team Providers Care Sas Developer Name Role Phone Alicia Pfeiffer DO Primary Care Provider + [phone] Reason for Visit * Reason Onset Date Comments Medication Question 11/25/2023 Encounter Details Date Type Department Care Team (Late st Contact Info) Description 11/25/2023 Telephone Family Medicine [address] [place] [phone] Alicia Pfeiffer DO [address] [place] [address] [place] [address] Medication Question Allergies Active Allergy Reactions Criticality Noted Date [...] as of this encounter (statuses as of 11/25/2023) Medications Medication Sig Dispensed Refills Start Date End Date Status VITAMIN B-12 100 MCG PO TABSIndications:DM type 2, goal A1c below 7 1 po daily 30 5 7 Active XALATAN 0.005 % OP SOLNIndications:Oth er specified glaucoma one drop each eye in the evening 0 1 Active Aspirin 81 MG TabletIndications:T ype 2 diabetes mellitus with hemoglobin A1c goal of less than 8.0% ([facility]) Take 1 Tablet by mouth in the morning. 30 Tab 0 8 Active Tylenol 8 Hour Arthritis Pain 650 MG Oral Tablet Extended Release Take 1 Tablet by mouth every 8 hours as needed. 0 Active Metoprolol Succinate ER 100 MG Oral Tablet Extended Release 24 Hour (toPROL XL) Take 1.5 Tablets by mouth in the morning. 135 Tablet 3 2 Active Losartan Potassium 25 MG Oral Tablet (Cozaar)Indications :Bradycardia,Essent ial hypertension with goal blood pressure less than 140/90 Take 1 Tablet by mouth in the morning. 90 Tablet 3 2 Active Atorvastatin Calcium 40 MG Oral Tablet (Lipitor)Indication s:Dyslipidemia, goal LDL below 100 Take 1 Tablet by mouth in the morning. 90 Tablet 3 2 Active OneTouch Verio In Vitro Strip (Glucose Blood) Use to test blood sugars up to three times daily DxE11.9 100 Strip 3 3 Active BD Pen Needle Mini U/F 31G X 5 MM (Insulin Pen Needle) use 1 PEN NEEDLE to inject MEDICATION subcutaneously 5 times a day 500 Each 3 3 Active Insulin Glargine Solostar 100 UNIT/ML Subcutaneous Solution Pen-injector (Basaglar KwamberPen)Indications :Type 2 diabetes mellitus with stage 3 chronic kidney disease, without long-term current use of insulin ([facility]) inject 26 units subcutaneously at bedtime 30 mL 3 3 Active Ozempic (2 MG/DOSE) 8 MG/3ML Subcutaneous Solution Pen-injector (Semaglutide (2 MG/DOSE)) INJECT 2MG UNDER THE SKIN ONCE WEEKLY 3 mL 1 3 Active Omeprazole 20 MG Oral Capsule Delayed Release (PriLOSEC)Indicatio ns:Gastroesophageal reflux disease without esophagitis Take 1 Capsule by mouth in the morning. 1 hour before the first meal of the day. 90 Capsule 3 3 Active amLODIPine Besylate 2.5 MG Oral Tablet (Norvasc)Indication s:HTN, goal below 140/90 Take 1 Tablet by mouth in the morning. 90 Tablet 3 3 Active FreeStyle Oscar 2 Sensor Use as directed. Change every 14 days. 3 Each 3 3 Active HYDROcodone-Acetami nophen 5-325 MG Oral TabletIndications:D egeneration of lumbosacral intervertebral disc Take 1 Tablet by mouth every 8 hours as needed for Pain, Severe. Continued script 30 Tablet 0 3 Active Levothyroxine Sodium 125 MCG Oral Tablet (Levoxyl)Indication s:Acquired hypothyroidism TAKE 1 TABLET BY MOUTH IN THE MORNING. (AT LEAST 30 MIN PRIOR TO BREAKFAST OR OTHER MEDS). 90 Tablet 3 3 Active NovoLOG FlexPen 100 UNIT/ML Subcutaneous Solution Pen-injector (insulin aspart)Indications: Type 2 diabetes mellitus with hemoglobin A1c goal of less than 7.0% ([facility]),Type 2 diabetes mellitus with stage 3b chronic kidney disease, without long-term current use of insulin ([facility]) PER SLIDING SCALE 4 TIMES A DAY (APPOX 40 UNITS PER DAY)DX E11.9 36 mL 1 3 Active Escitalopram Oxalate 20 MG Oral Tablet (Lexapro) One daily 90 Tablet 1 3 Active Escitalopram Oxalate 10 MG Oral Tablet (Lexapro) Take 1 Tablet by mouth in the morning. 90 Tablet 3 3 11/25/20 23 Discontinu ed(Refill) documented as of this encounter (statuses as of 11/25/2023) Active Problems Problem Noted Date Diagnosed Date [...] as of this encounter (statuses as of 11/25/2023) Resolved Problems Problem Noted Date Diagnosed Date [...] of skin 08/07/2018 08/10/2019 Vitamin D deficiency 08/07/2018 020 MEDICATION USE AGREEMENT 09/23/2017 Controlled substance [...] lower leg 12/29/2008 01/06/2018 Mixed dyslipidemia 09/09/2008 12 9 Overview: Per Lipid Taxonomy. Other iron [...] as of this encounter (statuses as of 11/25/2023) Immunizations Name Administration Dates Next Due COVID-19 mRNA, LNP-s, No Pre serve, 2-Dose Series (Moderna) 02/01/2021,01/04/2021 H1N1 2009 Influenza, IM 10/01/2009 Influenza, Whole Virus 10/08/2000,1998,10/04/1998,08/31 Pneumococcal Conjugate Vacc, 13 Valent (Prevnar) 01/16/2015 Pneumococcal Polysaccharide PPV23 (Pneumovax) 06/13/2006,09/10/1995 Season Influenza, Quad, PF, Adjuvanted, 65+ Yrs, IM (FLUAD) 09/08/2020 Seasonal Influenza, PF, 6 M & above, IM , (FluLaval or Fluzone) 09/21/2018,08/25/2017 Seasonal Influenza, Quadriva lent Hd (Fluzone Hd) 09/03/2023,08/14/2022,08/14/2021 Seasonal Influenza, Quadriva lent, No Preserve, IM 09/19/2016,09/25/2015 Seasonal Influenza, Split, I IV3, With Preserve, Inj 08/22/2014,09/08/2013,08/12/2012,08/02,08/16/2010,09/05/2009,09/09/20 08,09/17/2007,09/12/2006,09/26/2005,1 ,09/27/2003,09/27/2002,11/0911/09/2002 Seasonal Influenza, Trivalen t, Adjuvanted, 65+ yrs [...] as of this encounter Miscellaneous Notes * Addendum Note - Josiah Roque MD - 11/25/2023 1:31 PM ESTAddended by: JOSIAH ROQUE on: 11/25/2023 01:31 PM Modules accepted: Orders * Telephone Encounter - Josiah Roque MD - 11/25/2023 1:31 PM EST Sent to [facility] * Telephone Encounter - Avril Curiel [facility] - 11/25/2023 1:13 PM EST Pt calling in to request a dose change on their Lexapro. Current dose: 10 MG Requested dose: 20 mg Reason for request: not working - anxiety has been bad Daughter, Natalya, says patient is agreeable for increase in dose. Please advise. She would prefer a call back to day. Thanks, Avril Curiel [facility] Clinical Pharmacist [facility] (Former[facility]) [phone] * Telephone Encounter - Dolly Abraham CPhT - 11/25/2023 1:10 PM EST Pt calling in to request a dose change on their Lexapro. Current dose: 10 MG Requested dose: 20 mg Reason for request: not working - anxiety has been bad Preferred pharmacy: [facility] #[id number] Warm-transferred pt to pharmacist for consultation. Thank you, Dolly Abraham CPht Curling Machine Operator II [facility] ([facility] ([facility]) 11/25/2023, 1:11 PM documented in this encounter Plan of Treatment Upcoming Encounters Date Type Department Care Team (Late st Contact Info) Description 03/19/2024 2:30 PM EDT Office Visit Family Medicine [address] [place] [address] [address]fe[address] [place] [phone] Health Maintenance Due Date Last Done Comments Hepatitis B (1 of 3 - Risk 3-dose series) 2000 *BISPHONATE OR OTHER ACCEPTABLE MEDICATION NEEDED FOR OSTEOPOROSIS (REFER TO SMARTSET #1146) 09/18/2022 Depression Screening 02/12/2023 02/12/2022 Albumin/Creatinine Ratio 02/29/2024 023, 05/17/2022, 08/07/2021, Additional history exists Diabetic Foot Exam 02/29/2024 02/28/2023, 0 02/12/2022, 04/10/2021, Additional history exists GFR 03/04/2024 09/03/2023, 0 03/2023, 07/24/2023, Additional history exists HbA1c 03/04/2024 09/03/2023, 01/31, 11/21/2022, Additional history exists Diabetic Eye Exam 08/18/2024 08/18/2023, , 05/26/2020, Additional history exists DXA Scan 08/27/2024 08/27/2022, 03/2016, 10/05/2013, Additional history exists CKD HGB USE SMARTSET 13569 09/03/202409/03, 09/03/2023, 07/24/2023, Additional history exists CKD PHOS USE SMARTSET 12110 09/03/20240 03/2023, 05/17/2022, 01/29/2021, Additional history exists TSH 09/03/2024 09/03/2023, 01/31, 06/14/2022, Additional history exists DTaP,Tdap,and Td Vaccines (2 - Td or Tdap) 11/12/2028 11/12/2018, 08/12/2008 Pneumococcal Vaccine: 65+ Years Completed 01/16/2015, 06/13/2006, 09/10/1995 Zoster Vaccines Completed 05/19/2020, 01/2020, 08/07/2018, Additional history exists VITAMIN D LEVEL ONCE IN A LIFETIME-USE SMARTSET# 47983 Completed 01/29/2021, 06/07/2020, 07/12/2019, Additional history exists [...] filedocumented as of this encounter Care Teams Sas Developer Relationship Specialty Start Date End Date Alicia Pfeiffer DO [address] [place] [address] [place] [id number] PCP - General Internal Medicine 08/25/17 documented as of this encounter
--- OUTSIDE RECORDS SUMMARY | 2023-12-03 21:05 | External Medical Summary | Summary of Care ---
Author Name Unknown Organization [facility] Address [address] [place] [address] Phone [phone] Care Team Providers Care Glass Crusher Name Role Phone SummersClif henson Masergio HERRERA Primary Care Provider + [phone] Reason for Visit * Reason Comments eRx-Medication Refill Encounter Details Date Type Department Care Team (Late st Contact Info) Description 11/26/2023 Refill Family Medicine [address] [phone] Erika Bernabe, PAEdithC [address] [place] [address] [place] [address] Dyslipidemia, goal LDL below 100; Bradycardia; Essential hypertension with goal blood pressure less than 140/90 Allergies Active Allergy Reactions Criticality Noted Date [...] hemoglobin A1c goal of less than 8.0% ([facility]) Take 1 Tablet by mouth in [...] the morning. 135 Tablet 3 11/21/20 22 Active OneTouch Verio In Vitro Strip (Glucose [...] disease, without long-term current use of insulin ([facility]) inject 26 units subcutaneously at bedtime [...] Severe. Continued script 30 Tablet 0 09/25/20 Active Levothyroxine Sodium 125 MCG Oral Tablet (Levoxyl)Indicatio ns:Acquired hypothyroidism TAKE 1 TABLET BY MOUTH IN THE MORNING. (AT LEAST 30 MIN PRIOR TO BREAKFAST OR OTHER MEDS). 90 Tablet 3 10/16/20 Active NovoLOG FlexPen 100 UNIT/ML Subcutaneous Solution Pen-injector (insulin aspart)Indications :Type 2 diabetes mellitus with hemoglobin A1c goal of less than 7.0% ([facility]),Type 2 diabetes mellitus with stage 3b chronic kidney disease, without long-term current use of insulin ([facility]) PER SLIDING SCALE 4 TIMES A DAY (APPOX 40 UNITS PER DAY)DX E11.9 36 mL 1 10/22/20 Active Escitalopram Oxalate 20 MG Oral Tablet (Lexapro) One daily 90 Tablet 1 11/25/20 Active Atorvastatin Calcium 40 MG Oral Tablet (Lipitor)Indicatio ns:Dyslipidemia, goal LDL below 100 TAKE 1 TABLET BY MOUTH EVERY DAY IN THE MORNING 90 Tablet 1 11/27/20 23 Active Losartan Potassium 25 MG Oral Tablet (Cozaar)Indication s:Bradycardia,Esse ntial hypertension with goal blood pressure less than 140/90 TAKE 1 TABLET BY MOUTH EVERY DAY IN THE MORNING 90 Tablet 1 11/27/20 23 Active Losartan Potassium 25 MG Oral Tablet (Cozaar)Indication s:Bradycardia,Esse ntial hypertension with goal blood pressure less than 140/90 Take 1 Tablet by mouth in the morning. 90 Tablet 3 11/21/20 22 023 Discontinued Atorvastatin Calcium 40 MG Oral Tablet (Lipitor)Indicatio ns:Dyslipidemia, goal LDL below 100 Take 1 Tablet by mouth in the morning. 90 Tablet 3 11/21/20 22 023 Discontinued documented [...] on labs 08-07-07 BENIGN HYPERTENSION 11/10/2003 10/06/20 09 Overview: Modified per HTN Taxonomy. Palpitations 08/25/2017 [...] encounter Miscellaneous Notes * Telephone Encounter - Juanita Hilario [facility] - 11/27/2023 8:37 AM ESTSigned Prescriptions: Disp Refills Atorvastatin Calcium 40 MG Oral Tablet (Li*90 Tab*1 Sig: TAKE 1 TABLET BY MOUTH EVERY DAY IN THE MORNINGAuthorizing Provider: CLIF SUMMERS User: JUANITA HILARIO Losartan Potassium 25 MG Oral Tablet (Coza*90 Tab*1 Sig: TAKE 1 TABLET BY MOUTH EVERY DAY IN THE MORNINGAuthorizing Provider: CLIF SUMMERS User: JUANITA HILARIO documented in this encounter Plan of Treatment Upcoming Encounters Date Type Department Care Team (Late st Contact Info) Description 03/19/2024 2:30 PM EDT Office Visit Family Medicine [address] [place] [address] [place] [address] Health Maintenance Due Date Last Done Comments [...] Additional history exists CKD HGB USE SMARTSET 67421 09/03/202409/03, 09/03/2023, 07/24/2023, Additional history exists CKD PHOS USE SMARTSET 15644 09/03/20240 03/2023, 05/17/2022, 01/29/2021, Additional history exists TSH 09/03/2024 09/03/2023, 01/31, 06/14/2022, Additional history exists DTaP,Tdap,and Td Vaccines (2 - Td or Tdap) 11/12/2028 11/12/2018, 08/12/2008 Pneumococcal Vaccine: 65+ Years Completed 01/16/2015, 06/13/2006, 09/10/1995 Zoster Vaccines Completed 05/19/2020, 01/2020, 08/07/2018, Additional history exists VITAMIN D LEVEL ONCE IN A LIFETIME-USE SMARTSET# 78551 Completed 01/29/2021, 06/07/2020, 07/12/2019, Additional history exists [...] Not on filedocumented as of this encounter Visit Diagnoses Diagnosis Dyslipidemia, goal LDL below 100 Other and unspecified hyperlipidemia Bradycardia Other specified cardiac dysrhythmias Essential hypertension with goal blood pressure less than 140/90 documented in this encounter Care Teams Glass Crusher Relationship Specialty Start Date End Date Clif Summers DO [address] [place] [address] [place] [phone] PCP - General Internal Medicine 08/25/17 documented as of this encounter
--- OUTSIDE RECORDS SUMMARY | 2023-12-03 21:05 | External Medical Summary | Summary of Care ---
Author Name Unknown Organization [facility] Address [address] [place] [address] Phone [phone] Care Team Providers Care Community Arts Centre Manager Name Role Phone Alicia Pfeiffer Primary Care Provider Encounter Details Date Type Department Care Team (Late st Contact Info) Description 11/14/2023 Result Scan Unspecified Department <No scans attached> Allergies Active Allergy Reactions Criticality Noted Date [...] as of this encounter (statuses as of 11/18/2023) Medications Medication Sig Dispensed Refills Start Date End Date Status VITAMIN B-12 100 MCG PO TABSIndications:DM type 2, goal A1c below 7 1 po daily 30 5 10/27/2007 Active XALATAN 0.005 % OP SOLNIndications:Oth er specified glaucoma one drop each eye in the evening 0 05/07/2011 Active Aspirin 81 MG TabletIndications:T ype 2 diabetes mellitus with hemoglobin A1c goal of less than 8.0% (HCC) Take 1 Tablet by mouth in the morning. 30 Tab 0 08/14/2018 Active Tylenol 8 Hour Arthritis Pain 650 MG Oral Tablet Extended Release Take 1 Tablet by mouth every 8 hours as needed. 0 Active Metoprolol Succinate ER 100 MG Oral Tablet Extended Release 24 Hour (toPROL XL) Take 1.5 Tablets by mouth in the morning. 135 Tablet 3 11/21/2022 Active Losartan Potassium 25 MG Oral Tablet (Cozaar)Indications :Bradycardia,Essent ial hypertension with goal blood pressure less than 140/90 Take 1 Tablet by mouth in the morning. 90 Tablet 3 11/21/2022 Active Atorvastatin Calcium 40 MG Oral Tablet (Lipitor)Indication s:Dyslipidemia, goal LDL below 100 Take 1 Tablet by mouth in the morning. 90 Tablet 3 11/21/2022 Active OneTouch Verio In Vitro Strip (Glucose Blood) Use to test blood sugars up to three times daily DxE11.9 100 Strip 3 02/26/2023 Active BD Pen Needle Mini U/F 31G X 5 MM (Insulin Pen Needle) use 1 PEN NEEDLE to inject MEDICATION subcutaneously 5 times a day 500 Each 3 04/30/2023 Active Insulin Glargine Solostar 100 UNIT/ML Subcutaneous Solution Pen-injector (Basaglar IvetteikBhavik)Indications :Type 2 diabetes mellitus with stage 3 chronic kidney disease, without long-term current use of insulin (HCC) inject 26 units subcutaneously at bedtime 30 mL 3 07/31/2023 Active Ozempic (2 MG/DOSE) 8 MG/3ML Subcutaneous Solution Pen-injector (Semaglutide (2 MG/DOSE)) INJECT 2MG UNDER THE SKIN ONCE WEEKLY 3 mL 1 08/07/2023 Active Omeprazole 20 MG Oral Capsule Delayed Release (PriLOSEC)Indicatio ns:Gastroesophageal reflux disease without esophagitis Take 1 Capsule by mouth in the morning. 1 hour before the first meal of the day. 90 Capsule 3 09/03/2023 Active amLODIPine Besylate 2.5 MG Oral Tablet (Norvasc)Indication s:HTN, goal below 140/90 Take 1 Tablet by mouth in the morning. 90 Tablet 3 09/03/2023 Active FreeStyle Oscar 2 Sensor Use as directed. Change every 14 days. 3 Each 3 09/19/2023 Active Escitalopram Oxalate 10 MG Oral Tablet (Lexapro) Take 1 Tablet by mouth in the morning. 90 Tablet 3 09/25/2023 Active HYDROcodone-Acetami nophen 5-325 MG Oral TabletIndications:D egeneration of lumbosacral intervertebral disc Take 1 Tablet by mouth every 8 hours as needed for Pain, Severe. Continued script 30 Tablet 0 09/25/2023 Active Levothyroxine Sodium 125 MCG Oral Tablet (Levoxyl)Indication s:Acquired hypothyroidism TAKE 1 TABLET BY MOUTH IN THE MORNING. (AT LEAST 30 MIN PRIOR TO BREAKFAST OR OTHER MEDS). 90 Tablet 3 10/16/2023 Active NovoLOG FlexPen 100 UNIT/ML Subcutaneous Solution Pen-injector (insulin aspart)Indications: Type 2 diabetes mellitus with hemoglobin A1c goal of less than 7.0% (HCC),Type 2 diabetes mellitus with stage 3b chronic kidney disease, without long-term current use of insulin ([facility]) PER SLIDING SCALE 4 TIMES A DAY (APPOX 40 UNITS PER DAY)DX E11.9 36 mL 1 10/22/2023 Active documented as of this encounter (statuses as of 11/18/2023) Active Problems Problem Noted Date Diagnosed Date [...] 05/07/2011 DM type 2 causing neurological disease 02/16/201 1 Degeneration of lumbosacral intervertebral disc 05/16/2010 [...] as of this encounter (statuses as of 11/18/2023) Resolved Problems Problem Noted Date Diagnosed Date [...] as of this encounter (statuses as of 11/18/2023) Immunizations Name Administration Dates Next Due COVID-19 [...] on file documented as of this encounter Plan of Treatment Upcoming Encounters Date Type Department Care Team (Late st Contact Info) Description 03/19/2024 2:30 PM EDT Office Visit Family Medicine [address] [place] [phone] Alicia Pfeiffer[address] [place] [address] Health Maintenance Due Date Last Done Comments [...] Additional history exists CKD HGB USE SMARTSET 17433 09/03/202409/03, 09/03/2023, 07/24/2023, Additional history exists CKD PHOS USE SMARTSET 49821 09/03/202403/2023, 05/17/2022, 01/29/2021, Additional history exists TSH 09/03/2024 09/03/2023, 01/31, 06/14/2022, Additional history exists DTaP,Tdap,and Td Vaccines (2 - Td or Tdap) 11/12/2028 11/12/2018, 08/12/2008 Pneumococcal Vaccine: 65+ Years Completed 01/16/2015, 06/13/2006, 09/10/1995 Zoster Vaccines Completed 05/19/2020, 01/2020, 08/07/2018, Additional history exists VITAMIN D LEVEL ONCE IN A LIFETIME-USE SMARTSET# 56871 Completed 01/29/2021, 06/07/2020, 07/12/2019, Additional history exists [...] Not on filedocumented as of this encounter Procedures Procedure Name Priority Date/Time Associated Diagnosis Comments OUTSIDE LAB RESULTS 11/14/2023 documented in this encounter Results * OUTSIDE LAB RESULTS (11/14/2023) 11/14/2023 No Physician Data Unknown LABORATORY documented in this encounter Care Teams Community Arts Centre Manager Relationship Specialty Start Date End Date Alicia Pfeiffer DO [address] [place] [address] [place] [address] PCP - General Internal Medicine 08/25/17 documented as of this encounter
--- OUTSIDE RECORDS SUMMARY | 2023-12-03 21:05 | External Medical Summary | Summary of Care ---
Author Name Unknown Organization [facility] Address [address] [facility] [place] [address] Phone [phone] Care Team Providers Care Informatics Educator Name Role Phone Alicia Pfeiffer DO Primary Care Provider + [phone] Reason for Visit * Reason Onset Date Comments Medication Question 11/25/2023 Encounter Details Date Type Department Care Team (Late st Contact Info) Description 11/25/2023 Telephone Family Medicine [address] [place] [address] Alicia Pfeiffer DO [address] [place] [address] [place] [address] Medication Question Allergies Active Allergy [...] hemoglobin A1c goal of less than 8.0% ([facility]) Take 1 Tablet by mouth in the [...] Solostar 100 UNIT/ML Subcutaneous Solution Pen-injector (Basaglar KwYaa)Indications :Type 2 diabetes mellitus with stage 3 chronic kidney disease, without long-term current use of insulin ([facility]) inject 26 units subcutaneously at bedtime 30 [...] encounter Miscellaneous Notes * Telephone Encounter - Avril Curiel RP - 11/25/2023 1:13 PM EST Pt calling in to request a dose change on their Lexapro. Current dose: 10 MG Requested dose: 20 mg Reason for request: not working - anxiety has been bad Daughter, Natalya, says patient is agreeable for increase in dose. Please advise. She would prefer a call back to day. Thanks, Avril Curiel [facility] Clinical Pharmacist [facility] ([facility]) (Formerly Telepharmacy) [phone] * Telephone Encounter - Dolly Abraham CPhT - 11/25/2023 1:10 PM EST Pt calling in to request a dose change on their Lexapro. Current dose: 10 MG Requested dose: 20 mg Reason for request: not working - anxiety has been bad Preferred pharmacy: [id number] Warm-transferred pt to pharmacist for consultation. Thank you, Dolly Abraham CPht Stretcher Helper II [facility] ([facility]) (formerly Telepharmacy) 11/25/2023, 1:11 PM documented in this encounter Plan of Treatment Upcoming Encounters Date Type Department Care Team (Late st Contact Info) Description 03/19/2024 2:30 PM EDT Office Visit Family Medicine [address] [place] [address] [address]fe[address] [place] [address] Health Maintenance Due [...] Additional history exists CKD HGB USE SMARTSET 73423 09/03/202409/03, 09/03/2023, 07/24/2023, Additional history exists CKD PHOS USE SMARTSET 34635 09/03/20240 03/2023, 05/17/2022, 01/29/2021, Additional history exists TSH 09/03/2024 09/03/2023, 01/31, 06/14/2022, Additional history exists DTaP,Tdap,and Td Vaccines (2 - Td or Tdap) 11/12/2028 11/12/2018, 08/12/2008 Pneumococcal Vaccine: 65+ Years Completed 01/16/2015, 06/13/2006, 09/10/1995 Zoster Vaccines Completed 05/19/2020, 01/2020, 08/07/2018, Additional history exists VITAMIN D LEVEL ONCE IN A LIFETIME-USE SMARTSET# 20567 Completed 01/29/2021, 06/07/2020, 07/12/2019, Additional history exists [...] filedocumented as of this encounter Care Teams Informatics Educator Relationship Specialty Start Date End Date Alicia Pfeiffer DO [address] [place] [address] [place] [phone] PCP - General Internal Medicine 08/25/17 documented as of this encounter
--- OUTSIDE RECORDS SUMMARY | 2023-12-03 21:05 | External Medical Summary | Summary of Care ---
Author Name Unknown Organization [facility] Address [address] [facility] [place] [address] Phone [phone] Care Team Providers Care Farm Equipment Engineer Name Role Phone Alicia Pfeiffer DO Primary Care Provider + [phone] Reason for Visit * Reason Onset Date Comments Medication Question 11/25/2023 Encounter Details Date Type Department Care Team (Late st Contact Info) Description 11/25/2023 Telephone Family Medicine [address] [place] [address] Alicia Pfeiffer DO [address] [place] [address] [place] [address] Medication Question Allergies Active [...] hemoglobin A1c goal of less than 8.0% ([facility]) Take 1 Tablet by mouth in the [...] disease, without long-term current use of insulin ([facility]) inject 26 units subcutaneously at bedtime 30 [...] hemoglobin A1c goal of less than 7.0% ([facility]),Type 2 diabetes mellitus with stage 3b chronic kidney disease, without long-term current use of insulin ([facility]) PER SLIDING SCALE 4 TIMES A DAY [...] Notes * Telephone Encounter - Avril Curiel RPh - 11/25/2023 1:51 PM EST Called daughter, Natalya, to advise. She will shredder picker later. Also advised she can use up her 10mg tablets by taking 2 of them. Thanks, Avril Curiel RPh Clinical Pharmacist [facility] ([facility]) (Formerly Telepharmacy) [phone] * Addendum Note - Josiah Roque MD - 11/25/2023 1:31 PM ESTAddended by: JOSIAH ROQUE on: 11/25/2023 01:31 PM Modules accepted: Orders * Telephone Encounter - Josiah Roque MD - 11/25/2023 1:31 PM EST [facility] to [facility] * Telephone Encounter - Avril Curiel [facility] - 11/25/2023 1:13 PM EST Pt calling in to request a dose change on their Lexapro. Current dose: 10 MG Requested dose: 20 mg Reason for request: not working - anxiety has been bad Daughter, Natalya, says patient is agreeable for increase in dose. Please advise. She would prefer a call back to day. Thanks, Avril Curiel [facility] Clinical Pharmacist [facility] ([facility]) (Formerly Telepharmacy) [phone] * Telephone Encounter - Dolly Abraham CPhT - 11/25/2023 1:10 PM EST Pt calling in to request a dose change on their Lexapro. Current dose: 10 MG Requested dose: 20 mg Reason for request: not working - anxiety has been bad Preferred pharmacy: [id number] Warm-transferred pt to pharmacist for consultation. Thank you, Dolly Abraham CPht Perlite Grinder II [facility] ([facility]) (formerly Telepharmacy) 11/25/2023, 1:11 PM documented in this encounter Plan of Treatment Upcoming Encounters Date Type Department Care Team (Late st Contact Info) Description 03/19/2024 2:30 PM EDT Office Visit Family Medicine [address] [phone] [address] [place] [address] Health Maintenance Due Date Last Done Comments [...] Additional history exists CKD HGB USE SMARTSET 26463 09/03/202409/03, 09/03/2023, 07/24/2023, Additional history exists CKD PHOS USE SMARTSET 95718 09/03/20240 03/2023, 05/17/2022, 01/29/2021, Additional history exists TSH 09/03/2024 09/03/2023, 01/31, 06/14/2022, Additional history exists DTaP,Tdap,and Td Vaccines (2 - Td or Tdap) 11/12/2028 11/12/2018, 08/12/2008 Pneumococcal Vaccine: 65+ Years Completed 01/16/2015, 06/13/2006, 09/10/1995 Zoster Vaccines Completed 05/19/2020, 0 01/2020, 08/07/2018, Additional history exists VITAMIN D LEVEL ONCE IN A LIFETIME-USE SMARTSET# 78850 Completed 01/29/2021, 06/07/2020, 07/12/2019, Additional history exists [...] filedocumented as of this encounter Care Teams Farm Equipment Engineer Relationship Specialty Start Date End Date Alicia Pfeiffer DO [address] [place] [address] [place] [address] PCP - General Internal Medicine 08/25/17 documented as of this encounter
--- OUTSIDE RECORDS SUMMARY | 2023-12-03 21:06 | External Medical Summary | Summary of Care ---
Author Name Unknown Organization [facility] Address [address] [facility] [place] [address] Phone [phone] Care Team Providers Care Shank Paperer Name Role Phone Alicia Pfeiffer DO Primary Care Provider + [phone] Encounter Details Date Type Department Care Team (Late st Contact Info) Description 11/17/2023 Orders Only [address] [phone] Alicia Pfeiffer DO [address] [place] [address] [place] [address] Allergies Active Allergy Reactions Criticality Noted Date [...] as of this encounter (statuses as of 11/17/2023) Medications Medication Sig Dispensed Refills Start Date End Date Status VITAMIN B-12 100 MCG PO TABSIndications:DM type 2, goal A1c below 7 1 po daily 30 5 10/27/2007 Active XALATAN 0.005 % OP SOLNIndications:Oth er specified glaucoma one drop each eye in the evening 0 05/07/2011 Active Aspirin 81 MG TabletIndications:T ype 2 diabetes mellitus with hemoglobin A1c goal of less than 8.0% ([facility]) Take 1 Tablet by mouth in the [...] Solostar 100 UNIT/ML Subcutaneous Solution Pen-injector (Basaglar Alyssa)Indications :Type 2 diabetes mellitus with stage 3 chronic kidney disease, without long-term current use of insulin ([facility]) inject 26 units subcutaneously at bedtime 30 [...] disease, without long-term current use of insulin ([facility]) PER SLIDING SCALE 4 TIMES A DAY (APPOX 40 UNITS PER DAY)DX E11.9 36 mL 1 10/22/2023 Active documented as of this encounter (statuses as of 11/17/2023) Active Problems Problem Noted Date Diagnosed Date [...] as of this encounter (statuses as of 11/17/2023) Resolved Problems Problem Noted Date Diagnosed Date [...] as of this encounter (statuses as of 11/17/2023) Immunizations Name Administration Dates Next Due COVID-19 [...] 2:30 PM EDT Office Visit Family Medicine [address] [place] [phone] Alicia Pfeiffer[address] [place] [phone] Health Maintenance Due Date Last Done Comments Hepatitis B (1 of 3 - Risk 3-dose series) 2000 *BISPHONATE OR OTHER ACCEPTABLE MEDICATION NEEDED FOR OSTEOPOROSIS (REFER TO SMARTSET #1146) 09/18/2022 Depression Screening 02/12/2023 02/12/2022 Albumin/Creatinine Ratio 02/29/2024 023, 05/17/2022, 08/07/2021, Additional history exists Diabetic Foot Exam 02/29/2024 02/28/2023, 0 02/12/2022, 04/10/2021, Additional history exists GFR 03/04/2024 09/03/2023, 100 03/2023, 07/24/2023, Additional history exists HbA1c 03/04/2024 09/03/2023, 01/31, 11/21/2022, Additional history exists Diabetic Eye Exam 08/18/2024 08/18/2023, , 05/26/2020, Additional history exists DXA Scan 08/27/2024 08/27/2022, 0 03/2016, 10/05/2013, Additional history exists CKD HGB USE SMARTSET 58612 09/03/202409/03, 09/03/2023, 07/24/2023, Additional history exists CKD PHOS USE SMARTSET 16400 09/03/20240 03/2023, 05/17/2022, 01/29/2021, Additional history exists TSH 09/03/2024 09/03/2023, 01/31, 06/14/2022, Additional history exists DTaP,Tdap,and Td Vaccines (2 - Td or Tdap) 11/12/2028 11/12/2018, 08/12/2008 Pneumococcal Vaccine: 65+ Years Completed 01/16/2015, 06/13/2006, 09/10/1995 Zoster Vaccines Completed 05/19/2020, 01/2020, 08/07/2018, Additional history exists VITAMIN D LEVEL ONCE IN A LIFETIME-USE SMARTSET# 29725 Completed 01/29/2021, 06/07/2020, 07/12/2019, Additional history exists [...] Procedure Name Priority Date/Time Associated Diagnosis Comments XR CHEST 2 VIEWS Routine 11/14/2023 documented in this encounter Results * XR CHEST 2 VIEWS (11/14/2023) Anatomical Region Laterality Modality Chest Other 11/14/2023 Rajwinder Noble PA-C RADIOLOGY (RAD GEN ERAL) documented in this encounter Care Teams Shank Paperer Relationship Specialty Start Date End Date Alicia Pfeiffer DO [address] [place] [address] [place] [id number] PCP - General Internal Medicine 08/25/17 documented as of this encounter
--- OUTSIDE RECORDS SUMMARY | 2023-12-03 21:06 | External Medical Summary | Summary of Care ---
Author Name Unknown Organization [facility] Address [address] [facility] [place] [address] Phone [phone] Care Team Providers Care Youth Ministry Director Name Role Phone Alicia Pfeiffer DO Primary Care Provider + [phone] Encounter Details Date Type Department Care Team (Late st Contact Info) Description 11/18/2023 Orders Only [address] Medicine [address] [address] Alicia Pfeiffer DO [address] [place] [address] [place] [phone] Allergies Active Allergy Reactions Criticality Noted Date [...] goal of less than 8.0% ([facility]) Take 1 Tablet by mouth in the [...] long-term current use of insulin ([facility]) inject 26 units subcutaneously at bedtime 30 [...] long-term current use of insulin ([facility]) PER SLIDING SCALE 4 TIMES A DAY [...] 2:30 PM EDT Office Visit Family Medicine [address] [place] [phone] Alicia Pfeiffer[address] [place] [phone] Health Maintenance Due Date Last Done Comments [...] Additional history exists CKD HGB USE SMARTSET 13784 09/03/202409/03, 09/03/2023, 07/24/2023, Additional history exists CKD PHOS USE SMARTSET 58600 09/03/20240 03/2023, 05/17/2022, 01/29/2021, Additional history exists TSH 09/03/2024 09/03/2023, 01/31, 06/14/2022, Additional history exists DTaP,Tdap,and Td Vaccines (2 - Td or Tdap) 11/12/2028 11/12/2018, 08/12/2008 Pneumococcal Vaccine: 65+ Years Completed 01/16/2015, 06/13/2006, 09/10/1995 Zoster Vaccines Completed 05/19/2020, 01/2020, 08/07/2018, Additional history exists VITAMIN D LEVEL ONCE IN A LIFETIME-USE SMARTSET# 18066 Completed 01/29/2021, 06/07/2020, 07/12/2019, Additional history exists [...] Name Priority Date/Time Associated Diagnosis Comments OUTSIDE LAB-CORONAVIRUS (COVID-19) Routine 11/14/2023 documented in this encounter Results * OUTSIDE LAB-CORONAVIRUS (COVID-19) (11/14/2023) [id number] DE LAB NOT DETECTED NOT DETECTED OUTSIDE LAB (SEE SCANNED REPORT) 11/14/2023 Rajwinder Noble PA-C LABORATORY OUTSIDE LAB (SEE SCANNED REPORT) documented in this encounter Care Teams Youth Ministry Director Relationship Specialty Start Date End Date Alicia Pfeiffer DO [address] [place] [address] [place] [phone] PCP - General Internal Medicine 08/25/17 documented as of this encounter
--- OUTSIDE RECORDS SUMMARY | 2023-12-03 21:06 | External Medical Summary | Summary of Care ---
Author Name Unknown Organization [facility] Address [address] [facility] [place] [address] Phone [phone] Care Team Providers Care Wind Turbine Installer Name Role Phone Alicia Pfeiffer DO Primary Care Provider [phone] Reason for Visit * Reason Onset Date Comments Advice 11/14/2023 Med Request 11/14/2023 Encounter Details Date Type Department Care Team (Late st Contact Info) Description 11/14/2023 Telephone Family Medicine [address] [place] [address] Alicia Pfeiffer DO [address] [place] [address] [place] [address] Advice; Med Request Allergies Active Allergy Reactions Criticality Noted Date [...] as of this encounter (statuses as of 11/14/2023) Medications Medication Sig Dispensed Refills Start Date End Date Status VITAMIN B-12 100 MCG PO TABSIndications:DM type 2, goal A1c below 7 1 po daily 30 5 10/27/2007 Active XALATAN 0.005 % OP SOLNIndications:Oth er specified glaucoma one drop each eye in the evening 0 05/07/2011 Active Aspirin 81 MG TabletIndications:T ype 2 diabetes mellitus with hemoglobin A1c goal of less than 8.0% ([facility]) Take 1 Tablet by mouth in the [...] Glargine Solostar 100 UNIT/ML Subcutaneous Solution Pen-injector (Basaglwisam Shah)Indications :Type 2 diabetes mellitus with stage 3 chronic kidney disease, without long-term current use of insulin ([facility]) inject 26 units subcutaneously at bedtime 30 [...] hemoglobin A1c goal of less than 7.0% ([facility]),Type 2 diabetes mellitus with stage 3b chronic kidney disease, without long-term current use of insulin ([facility]) PER SLIDING SCALE 4 TIMES A DAY (APPOX 40 UNITS PER DAY)DX E11.9 36 mL 1 10/22/2023 Active documented as of this encounter (statuses as of 11/14/2023) Active Problems Problem Noted Date Diagnosed Date [...] as of this encounter (statuses as of 11/14/2023) Resolved Problems Problem Noted Date Diagnosed Date [...] as of this encounter (statuses as of 11/14/2023) Immunizations Name Administration Dates Next Due COVID-19 [...] encounter Miscellaneous Notes * Telephone Encounter - Isamar Murray LPN - 11/14/2023 10:52 AM EST I spoke to Dolly. I advises since there is no available roque today, she should take her to a urgent care to get checked. * Telephone Encounter - Dolly Adrian LPN - 11/14/2023 10:47 AM EST Natalya calling back stated that the home covid test was negative. Patient does have a little SOB. Daughter wanted to know if she should take her to urgent care. Called and spoke with Isamar in the office. She advised to send her to urgent care since there are no appointments today. * Telephone Encounter - Janneth Alvarez LPN - 11/14/2023 9:59 AM EST Daughter calling due to pt having a dry cough for a couple weeks. Pt has headache and fatigued starting today. Has low grade temp. Cough sounds wet, unknown if she is cough anything up. Daughter is not with her unknown of any sob. Offered appts at [facility] and [facility] today, she declined. Requesting her to be seen in [place] today, no appts. She does have covid test at home daughter will have her take the test. I advise daughter to have pttake the coivd test. They will call back with results. * Telephone Encounter - Faustino Root OSA - 11/14/2023 9:35 AM EST No Appointments Available Patient declined appointments?: No What Visit Type is needed? Acute If Acute Visit Type is needed, were surrounding clinics offered to patient (Yes/No)? N/A Was patient offered appointments with other available providers (Yes/No)? No, explain she can only get to [facility] See Call Details? (Yes or No): Yes Patient states her cough needs to be taken care of today as she is 83 yrs old. Please call back to discuss. documented in this encounter Plan of Treatment Upcoming Encounters Date Type Department Care Team (Late st Contact Info) Description 03/19/2024 2:30 PM EDT Office Visit Family Medicine [address] [place] [address] [place] [phone] Health Maintenance Due Date Last Done Comments [...] Additional history exists CKD HGB USE SMARTSET 82208 09/03/202409/03, 09/03/2023, 07/24/2023, Additional history exists CKD PHOS USE SMARTSET 42061 09/03/20240 03/2023, 05/17/2022, 01/29/2021, Additional history exists TSH 09/03/2024 09/03/2023, 01/31, 06/14/2022, Additional history exists DTaP,Tdap,and Td Vaccines (2 - Td or Tdap) 11/12/2028 11/12/2018, 08/12/2008 Pneumococcal Vaccine: 65+ Years Completed 01/16/2015, 06/13/2006, 09/10/1995 Zoster Vaccines Completed 05/19/2020, 01/2020, 08/07/2018, Additional history exists VITAMIN D LEVEL ONCE IN A LIFETIME-USE SMARTSET# 21938 Completed 01/29/2021, 06/07/2020, 07/12/2019, Additional history exists [...] filedocumented as of this encounter Care Teams Wind Turbine Installer Relationship Specialty Start Date End Date Alicia Pfeiffer DO [address] [place] [address] [place] [phone] PCP - General Internal Medicine 08/25/17 documented as of this encounter
--- OUTSIDE RECORDS SUMMARY | 2023-12-03 21:06 | External Medical Summary | Summary of Care ---
Author Name Unknown Organization [facility] Address [address] [facility] [place] [address] Phone [phone] Care Team Providers Care Gift Consultant Name Role Phone Clif Summers DO Primary Care Provider + [phone] Reason for Visit * Reason Onset Date Comments Medication Refill 09/24/2023 Encounter Details Date Type Department Care Team (Late st Contact Info) Description 09/24/2023 Refill Family Medicine [address] [place] [address] Clif Summers DO [address] [place] [address] [place] [phone] Degeneration of lumbosacral intervertebral disc Allergies Active Allergy Reactions Criticality Noted Date [...] as of this encounter (statuses as of 09/25/2023) Medications Medication Sig Dispensed Refills Start Date [...] every 8 hours as needed. 0 Active Levothyroxine Sodium 125 MCG Oral Tablet (Levoxyl)Indication s:Acquired hypothyroidism Take 1 Tablet by mouth in the morning. (at least 30 min prior to breakfast or other meds). 90 Tablet 3 2 Active Metoprolol Succinate ER 100 MG Oral [...] a day 500 Each 3 3 Active NovoLOG FlexPen 100 UNIT/ML Subcutaneous Solution Pen-injector (insulin aspart)Indications: Type 2 diabetes mellitus with hemoglobin A1c goal of less than 7.0% ([facility]),Type 2 diabetes mellitus with stage 3b chronic kidney disease, without long-term current use of insulin ([facility]) PER SLIDING SCALE 4 TIMES A DAY (APPOX 40 UNITS PER DAY)DX E11.9 36 mL 1 3 Active Insulin Glargine Solostar 100 UNIT/ML Subcutaneous Solution Pen-injector (Basaglar KwikPen)Indications :Type 2 diabetes mellitus with stage 3 [...] 14 days. 3 Each 3 3 Active Escitalopram Oxalate 10 MG Oral Tablet (Lexapro) Take 1 Tablet by mouth in the morning. 90 Tablet 3 3 Active HYDROcodone-Acetami nophen 5-325 MG Oral TabletIndications:D egeneration of lumbosacral intervertebral disc Take 1 Tablet by mouth every 8 hours as needed for Pain, Severe. Continued script 30 Tablet 0 3 Active Escitalopram Oxalate 10 MG Oral Tablet (Lexapro) Take 1 Tablet (10 mg) by mouth in the morning. 90 Tablet 3 2 09/24/20 23 Discontinu ed(Refill) HYDROcodone-Acetami nophen 5-325 MG Oral TabletIndications:D egeneration of lumbosacral intervertebral disc Take 1 Tablet by mouth every 8 hours as needed for Pain, Severe. Continued script 30 Tablet 0 3 09/24/20 23 Discontinu ed(Refill) documented as of this encounter (statuses as of 09/25/2023) Active Problems Problem Noted Date Diagnosed Date [...] as of this encounter (statuses as of 09/25/2023) Resolved Problems Problem Noted Date Diagnosed Date [...] as of this encounter (statuses as of 09/25/2023) Immunizations Name Administration Dates Next Due COVID-19 mRNA, LNP-s, No Pre serve, 2-Dose Series (Moderna) 02/01/2021,01/04/2021 H1N1 2009 Influenza, IM 10/01/2009 Pneumococcal Conjugate Vacc, 13 Valent (Prevnar) 01/16/2015 Pneumococcal Polysaccharide PPV23 (Pneumovax) 06/13/2006,09/10/1995 SEASONAL INFLUENZA, PF, 6 M & Above, IM , (FLULAVAL or FLUZONE) 09/21/2018,08/25/2017 Season Influenza, Quad, PF, Adjuvanted, 65+ Yrs, IM (FLUAD) 09/08/2020 Seasonal Influenza, Quadriva lent Hd (Fluzone Hd) [...] drink = 0.6 oz pur e alcohol) Sex and Gender Information Value Date Recorded Sex Assigned at Not on file Gender Identity Not on file Sexual Orientation Straight 10/02/2019 3: 49 PM EDT Job Start Date Occupation Industry Not on file Not on file Not on file documented as of this encounter Miscellaneous Notes * Telephone Encounter - DO Edith Gayle 09/25/2023 11:28 AM EDTSigned Prescriptions: Disp Refills Escitalopram Oxalate 10 MG Oral Tablet (Le*90 Tab*3 Sig: Take 1 Tablet by mouth in the morning. Authorizing Provider: CLIF SUMMERS Ordering User: NARCISO KEITA HYDROcodone-Acetaminophen 5-325 MG Oral Ta*30 Tab*0 Sig: Take 1 Tablet by mouth every 8 hours as needed for Pain, Severe. Continued script Authorizing Provider: CLIF CARRERA * Telephone Encounter - Narciso Keita [facility] - 09/25/2023 11:25 AM EDTPending Prescriptions: Disp Refills HYDROcodone-Acetaminophen 5-325 MG Oral Ta*30 Tab*0 Sig: Take 1 Tablet by mouth every 8 hours as needed for Pain, Severe. Continued script Signed Prescriptions: Disp Refills Escitalopram Oxalate 10 MG Oral Tablet (Le*90 Tab*3 Sig: Take 1 Tablet by mouth in the morning. Authorizing Provider: CLIF SUMMERS Ordering User: NARCISO KEITA * Telephone Encounter - Narciso Keita [facility] - 09/25/2023 11:24 AM EDT I have reviewed the patients controlled substance dispensing history in the Prescription Drug Monitoring Program in compliance with the [facility] regulations before prescribing a controlled substance. PDMP checked on 09/25/2023. Pending Prescriptions: Disp Refills HYDROcodone-Acetaminophen 5-325 MG Oral T*30 Tab*0 Sig: Take 1 Tablet by mouth every 8 hours as needed for Pain, Severe. Continued script Signed Prescriptions: Disp Refills Escitalopram Oxalate 10 MG Oral Tablet (Le*90 Tab*3 Sig: Take 1 Tablet by mouth in the morning. Authorizing Provider: CLIF SUMMERS Ordering User: NARCISO KEITA Last Visit: 09/03/2023 (in office), Visit date not found (telemedicine) Next Visit: 03/19/2024 Date medication was last filled: 07/21/23 Date medication is due for refill: 07/30/23 Pharmacy: [address] Is this request for a controlled substance? Yes and Urine Drug Screen Not completed Toxicology results: Results for orders placed or performed in visit on 09/23/17 OPIOIDS/BENZO COMPLIANCE MONITORING W/INTERP Result Value COMPLIANCE INTERP (NOTE) URINE DRUG SCREEN RESULT Amphetamine NEGATIVE Barbiturates NEGATIVE Benzodiazepines NEGATIVE Cannabinoids NEGATIVE Cocaine Metabolite NEGATIVE METHADONE METABOLITE NEGATIVE Morphine / Codeine NEGATIVE OXYCODONE NEGATIVE COMMENT THE ABOVE SCREENING RESULTS ARE PRESUMPTIVE AND CAN ONLY BE USED FOR MEDICAL PURPOSES. CONFIRMATORY TESTING IS AVAILABLE UPON REQUEST. Cutoff Concentration URINE VALID INTERP NORMAL CREATININE DANDRE 158 NITRITE ADNDRE 20 pH DANDRE 4.7 *Note: Due to a large number of results and/or encounters for the requested time period, some results have not been displayed. A complete set of results can be found in Results Review. Please approve if appropriate. Thanks, Narciso Keita PharmD Clinical Pharmacist [facility] ([facility]) [phone] 09/25/2023 11:24 AM * Telephone Encounter - MAYNOR Lenz Tech - 09/24/2023 4:35 PM EDT Did you pend patient's preferred pharmacy and medication before forwarding?yes Pharmacy: [facility] Pending Prescriptions: Disp Refills Escitalopram Oxalate 10 MG Oral Tablet (L*90 Tab*3 Sig: Take 1 Tablet by mouth in the morning. HYDROcodone-Acetaminophen 5-325 MG Oral T*30 Tab*0 Sig: Take 1 Tablet by mouth every 8 hours as needed for Pain, Severe. Continued script Last Visit: 09/03/2023 (in office), Visit date not found (telemedicine) Next Visit: 03/19/2024 If no future appointments scheduled, and last appointment is greater than a year ago, please schedule patient for a follow-up appointment Last date the medication was ordered: 07/18/2023 Is this request for a controlled substance? Urine Drug Screen: Results for orders placed or performed in visit on 09/23/17 OPIOIDS/BENZO COMPLIANCE MONITORING W/INTERP Result Value COMPLIANCE INTERP (NOTE) URINE DRUG SCREEN RESULT Amphetamine NEGATIVE Barbiturates NEGATIVE Benzodiazepines NEGATIVE Cannabinoids NEGATIVE Cocaine Metabolite NEGATIVE METHADONE METABOLITE NEGATIVE Morphine / Codeine NEGATIVE OXYCODONE NEGATIVE COMMENT THE ABOVE SCREENING RESULTS ARE PRESUMPTIVE AND CAN ONLY BE USED FOR MEDICAL PURPOSES. CONFIRMATORY TESTING IS AVAILABLE UPON REQUEST. Cutoff Concentration URINE VALID INTERP NORMAL CREATININE DANDRE 158 NITRITE DANDRE 20 pH DANDRE 4.7 *Note: Due to a large number of results and/or encounters for the requested time period, some results have not been displayed. A complete set of results can be found in Results Review. Patient Phone Numbers Labs: Lab Results Component Value Date/Time CREAT 1.6 (H) 09/03/2023 11:08 AM CREAT 1.6 (H) 09/03/2023 11:08 AM CREAT 1.48 (A) 07/24/2023 12:00 AM CREAT 1.6 (H) 11/08/2020 11:46 AM CREAT 0.5 (L) 03/16/1997 02:55 PM POTASSIUM 5.6 (H) 09/03/2023 11:08 AM POTASSIUM 4.8 07/24/2023 12:00 AM POTASSIUM 4.8 11/08/2020 11:46 AM POTASSIUM 4.4 03/16/1997 02:55 PM TSH 0.41 09/03/2023 11:08 AM TSH 1.199 09/12/2020 12:00 AM TSH 2.11 06/07/2020 11:34 AM TSH 7.40 (H) 03/16/1997 02:55 PM LDLCALC 70 05/17/2022 12:22 PM LDLCALC 61 11/08/2020 11:46 AM LDLCALC 118. 09/15/1996 09:35 AM LDLDIRECT 70 02/28/2023 01:07 PM LDLDIRECT NOT APPLICABLE 11/08/2020 11:46 AM ALT 16 11/21/2022 03:03 PM ALT 14 11/08/2020 11:46 AM ALT 17 09/15/1996 09:35 AM HGBA1C 9.1 (H) 09/03/2023 11:08 AM HGBA1C 8.6 (H) 11/08/2020 11:46 AM HGBA1C 11.1 (H) 03/16/1997 02:55 PM documented in this encounter Plan of Treatment Upcoming Encounters Date Type Department Care Team (Late st Contact Info) Description 03/19/2024 2:30 PM EDT Office Visit Family Medicine [address] [place] [address] [place] [phone] Health Maintenance Due Date Last Done Comments [...] 03/04/2024 09/03/2023, 01/31, 11/21/2022, Additional history exists DIABETES-EYE EXAM 08/18/2024 08/18/2023, , 05/26/2020, Additional history exists DXA Scan 08/27/2024 08/27/2022, 0 03/2016, 10/05/2013, Additional history exists CKD HGB USE SMARTSET 24557 09/03/202409/03, 09/03/2023, 07/24/2023, Additional history exists CKD PHOS USE SMARTSET 25183 09/03/2024 100 03/2023, 05/17/2022, 01/29/2021, Additional history exists TSH 09/03/2024 09/03/2023, 01/31, 06/14/2022, Additional history exists DTaP,Tdap,and Td Vaccines (2 - Td or Tdap) 11/12/2028 11/12/2018, 08/12/2008 Pneumococcal Vaccine: 65+ Years Completed 01/16/2015, 06/13/2006, 09/10/1995 Zoster Vaccines Completed 05/19/2020, 01/2020, 08/07/2018, Additional history exists VITAMIN D LEVEL ONCE IN A LIFETIME-USE SMARTSET# 09108 Completed 01/29/2021, 06/07/2020, 07/12/2019, Additional history exists [...] as of this encounter Visit Diagnoses Diagnosis Degeneration of lumbosacral intervertebral disc Degeneration of lumbar or lumbosacral intervertebral disc documented in this encounter Care Teams Gift Consultant Relationship Specialty Start Date End Date Clif Summers DO [address] [place] [address] [place] [phone] PCP - General Internal Medicine 08/25/17 documented as of this encounter
--- OUTSIDE RECORDS SUMMARY | 2023-12-03 21:06 | External Medical Summary | Summary of Care ---
Author Name Unknown Organization [facility] Address [address] [facility] [place] [address] Phone [phone] Care Team Providers Care Funeral Home Makeup Artist Name Role Phone Alicia Pfeiffer DO Primary Care Provider + [phone] Reason for Visit * Reason Onset Date Comments Med Request 09/19/2023 Encounter Details Date Type Department Care Team Description 09/19/2023 Telephone Family Medicine [address] [place] [address] Alicia Pfeiffer DO [address] [place] [address] [place] [phone] Med Request Allergies Active Allergy Reactions Severity Noted Date Comments Baclofen Other (Please comment) 01/06/2018 Dizzy, nausea Venlafaxine 09/25/2020 Itching, panic attack Levofloxacin Hemihydrate 03/19/2005 nausea,sleeplessnes s Lisinopril Cough Low 06/01/2013 Meclizine 12/22/2003 made dizziness worse Nitroglycerin 02/28/2022 Passed out, hit head Nsaids Renal complications High 12/26/2008 Worsening of renal function Tramadol Hcl 10/17/2003 dizziness,syncope Sertraline Hcl Itching Low 06/15/2019 itching documented as of this encounter (statuses as of 09/19/2023) Medications Medication Sig Dispensed Refills Start Date End Date Status VITAMIN B-12 100 MCG PO TABSIndications:DM type 2, goal A1c below 7 1 po daily 30 5 10/27/2007 Active XALATAN 0.005 % OP SOLNIndications:Oth er specified glaucoma one drop each eye in the evening 0 05/07/2011 Active Aspirin 81 MG TabletIndications:T ype 2 diabetes mellitus with hemoglobin A1c goal of less than 8.0% ([facility]) Take 1 Tablet by mouth in the morning. 30 Tab 0 08/14/2018 Active Tylenol 8 Hour Arthritis Pain 650 MG Oral Tablet Extended Release Take 1 Tablet by mouth every 8 hours as needed. 0 Active Escitalopram Oxalate 10 MG Oral Tablet (Lexapro) Take 1 Tablet (10 mg) by mouth in the morning. 90 Tablet 3 10/16/2022 Active Levothyroxine Sodium 125 MCG Oral Tablet (Levoxyl)Indication s:Acquired hypothyroidism Take 1 Tablet by mouth in the morning. (at least 30 min prior to breakfast or other meds). 90 Tablet 3 11/21/2022 Active Metoprolol Succinate ER 100 MG Oral [...] a day 500 Each 3 04/30/2023 Active NovoLOG FlexPen 100 UNIT/ML Subcutaneous Solution Pen-injector (insulin aspart)Indications: Type 2 diabetes mellitus with hemoglobin A1c goal of less than 7.0% ([facility]),Type 2 diabetes mellitus with stage 3b chronic kidney disease, without long-term current use of insulin ([facility]) PER SLIDING SCALE 4 TIMES A DAY (APPOX 40 UNITS PER DAY)DX E11.9 36 mL 1 06/11/2023 Active HYDROcodone-Acetami nophen 5-325 MG Oral TabletIndications:D egeneration of lumbosacral intervertebral disc Take 1 Tablet by mouth every 8 hours as needed for Pain, Severe. Continued script 30 Tablet 0 07/18/2023 Active Insulin Glargine Solostar 100 UNIT/ML Subcutaneous [...] 14 days. 3 Each 3 09/19/2023 Active documented as of this encounter (statuses as of 09/19/2023) Active Problems Problem Noted Date Type 2 diabetes mellitus wit h stage 3b chronic kidney disease, with long-term current use of insulin 04/10/2021 Overview: Per CKD protocol Chronic kidney disease, stage 3b 021 Overview: Per CKD protocol Spinal stenosis of lumbar region without neurogenic claudication 04/02/2021 Hypertensive kidney disease with stage 3 b chronic kidney disease 10/09/2020 Overview: Per CKD protocol Abnormal MRI, spine 07/11/2020 Type 2 diabetes mellitus with diabetic n europathy 05/31/2019 Diabetes mellitus type 2 with peripheral artery disease 05/10/2019 Current moderate episode of major depressive disorder without prior episode 05/10/2019 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 diabetes mellitus 05/03/2019 Type 2 diabetes mellitus with hemoglobin A1c goal of less than 8.0% 08/07/2018 Primary osteoarthritis of both hands 05/2018 Low HDL (under 40) 11/08/2015 Peripheral sensory neuropathy 09/25/2015 CECILIA inhibitor intolerance 06/01/2013 Esophageal spasm 02/23/2013 Esophageal reflux 05/07/2011 DM type 2 causing neurological disease 0 01/16/2011 Degeneration of lumbosacral intervertebr al disc 05/16/2010 Severe obesity with body mas s index (BMI) of 35.0 to 39.9 with serious comorbidity 05/14/2010 Overview: Per Obesity Protocol, #19 ICD-10 update of inactive diagnosis Hyperlipidemia with target LDL less than 70 11/07/2009 Overview: Per Lipid Taxonomy. HTN, goal below 140/90 10/06/2009 Overview: Modified per HTN Taxonomy. Vitamin B deficiency 08/12/2008 CLASSICAL MIGRAINE WITHOU MENTION OF INT RACTABLE MIGRAINE Senile osteoporosis Acquired hypothyroidism documented as of this encounter (statuses as of 09/19/2023) Resolved Problems Problem Noted Date Resolved Date Hypertensive kidney disease with CKD stage III 0 05/10/2019 10/12/2020 Overview: Per CKD protocol Type 2 diabetes mellitus wit h stage 3 chronic kidney disease, with long-term current use of insulin 05/10/2019 021 Overview: Per CKD protocol Severe obesity with body mas s index (BMI) of 35.0 to 39.9 with serious comorbidity 08/07/2018 05/31/2019 Overview: ICD-10 update of inactive diagnosis Skin ulcer of toe of right f oot, limited to breakdown of skin 08/07/2018 08/10/2019 Vitamin D deficiency 08/07/2018 03/22/2020 MEDICATION USE AGREEMENT 09/23/2017 020 Controlled substance agreement signed 06/30/2017 06/21/2020 Iron deficiency anemia due to chronic blood loss 06/06/2016 08/23/2022 HTN, goal below 150/90 05/30/2016 1 Overview: Per Nephrology HTN, goal below 140/80 04/25/2016 6 Type 2 diabetes mellitus wit h diabetic chronic kidney disease 09/25/2015 05/31/2019 DM neuropathy, type I diabetes mellitus 09/25/20 15 02/22/2016 DM type 2 causing CKD stage 3 09/25/2015 Seborrheic keratosis 08/23/2015 01/06/2018 Hypertension goal BP (blood pressure) < 140/90 1 01/24/2014 06/24/2016 Lumbar degenerative disc disease 07/29/2013 07/29/2013 Type 2 diabetes mellitus wit h hemoglobin A1c goal of less than 7.0% 12/30/2011 08/07/2018 Overview: ICD-10 update of inactive term PVD (PERIPHERAL VASCULAR DISEASE) DUE DIABETES ( 250.7=) 08/27/2011 06/11/2019 ANGIOEDEMA 06/07/2011 01/06/2018 Other specified urticaria 06/07/20112017 Overview: began 05/02/2011 Diabetic polyneuropathy 01/16/2011 09/25/20 15 Overview: ICD-10 update of inactive term HTN, goal below 130/80 10/18/2009 4 Type 2 diabetes mellitus wit h hemoglobin A1c goal of less than 7.0% 09/14/2009 12/03/2011 Overview: Modified per Diabetes protocol #14. ICD-10 update of inactive term Slow transit constipation 04/28/20092018 DM type 2, not at goal 04/11/2009 9 Overview: Modified per Diabetes protocol #14. Primary localized osteoarthrosis, lower leg 12/0201/06/2018 Mixed dyslipidemia 09/09/2008 11/07/2009 Overview: Per Lipid Taxonomy. Other iron deficiency anemia 09/09/2008 Overview: ICD-10 update of inactive term DIAB RENAL MANIF ADULT 06/22/2008 5 Overview: Added per DM w/ renal complications protocol #4 Kidney disease, chronic, stage III (GFR 30-59 ml /min) 01/13/2008 06/10/2019 Overview: Based on labs 08-07-07 BENIGN HYPERTENSION 11/10/2003 10/06/2009 Overview: Modified per HTN Taxonomy. Palpitations 08/25/2017 Type 2 diabetes mellitus wit h hemoglobin A1c goal of less than 7.0% 04/11/2009 Overview: ICD-10 update of inactive term PURE HYPERCHOLESTEROLEM 09/09/20 08 Hypothyroidism 08/12/2008 Calculus of gallbladder with out mention of cholecystitis or obstruction 08/12/2008 Abnormal results of liver function studies 06/26/2010 documented as of this encounter (statuses as of 09/19/2023) Immunizations Name Administration Dates Next Due COVID-19 [...] drink = 0.6 oz pur e alcohol) Food Insecurity Answer Date Recorded Within the past 12 months, y ou worried that your food would run out before you got money to buy more. Never true 09/18/2020 Within the past 12 months, t he food you bought just didn't last and you didn't have money to get more. Never true 09/18/2020 Sex Assigned at Date Recorded Not on file Job Start Date Occupation Industry Not on file Not on file Not on file documented as of this encounter Miscellaneous Notes * Telephone Encounter - Alicia Pfeiffer DO - 09/19/2023 4:15 PM EDT Thanks for the head's up. Script sent. * Telephone Encounter - Lorraine Germain RPh - 09/19/2023 3:43 PM EDT Patient no longer following with [facility], unable to approve refill. Dr Margarette Sharma I pended this order for you. However, per previous [facility] notes in the past patient had been obtaining sensors through DME supplier. Can consider if not covered under pharmacy benefit. Thanks! Lorraine Germain RPh, PharmD Clinical Pharmacist - Sales And Service Specialist [facility] 09/19/2023, 3:44 PM [phone] * Telephone Encounter - Lilian Trivedi CPhT - 09/19/2023 3:34 PM EDT An order was requested for this patient. Name of Requestor: Kinga Order Request: Diabetic testing supplies (oscar 2 sensors); Does patient follow with [facility] for Diabetes? YES - ROUTE TO [facility] POOL Diagnosis/Reason for Request: DM Does the order need to be faxed somewhere? If so, where?: [id number] [place] [address] [facility] Fax Number, if applicable: Call Back Number: [phone] Thank you, Lilian Trivedi Hvac R Instructor [facility] ([facility]) (Formerly [facility]) 09/19/2023,3:35 PM documented in this encounter Plan of Treatment Upcoming Encounters Date Type Specialty Care Team Description 03/19/2024 Office Visit Family Medicine Alicia Pfeiffer, [address] [place], [place] [phone] Health Maintenance Due Date Last Done Comments *BISPHONATE OR OTHER ACCEPTABLE MEDICATION NEEDED FOR [...] Additional history exists CKD HGB USE SMARTSET 97455 09/03/202409/03, 09/03/2023, 07/24/2023, Additional history exists CKD PHOS USE SMARTSET 07935 09/03/202403/2023, 05/17/2022, 01/29/2021, Additional history exists TSH 09/03/2024 09/03/2023, 01/31, 06/14/2022, Additional history exists DTaP,Tdap,and Td Vaccines (2 - Td or Tdap) 11/12/2028 11/12/2018, 08/12/2008 Pneumococcal Vaccine: 65+ Years Completed 01/16/2015, 06/13/2006, 09/10/1995 Zoster Vaccines Completed 05/19/2020, 01/2020, 08/07/2018, Additional history exists VITAMIN D LEVEL ONCE IN A LIFETIME-USE SMARTSET# 89724 Completed 01/29/2021, 06/07/2020, 07/12/2019, Additional history exists COVID-19 Vaccine Completed 09/03/2023, 03/2021, 01/04/2021 Influenza Vaccine (FLU shot) Completed 03/2023, 08/14/2022, 08/14/2021, Additional history exists GARDASIL-HPV IMMUNIZATION SERIES Aged Out No longer eligible based on patient's age to complete this topic Hepatitis B Aged Out No longer eligi ble based on patient's age to complete this topic MENINGOCOCCAL (MENACTRA/MENVEO) Aged Out No longer eligible based on patient's age to complete this topic documented as of this encounter Medical Devices Not on filedocumented as of this encounter Care Teams Funeral Home Makeup Artist Relationship Specialty Start Date End Date Alicia Pfeiffer, [address] [place] [id number] PCP - General Internal Medicine 08/25/17 documented as of this encounter
--- OUTSIDE RECORDS SUMMARY | 2023-12-03 21:06 | External Medical Summary | Summary of Care ---
Author Name Unknown Organization [facility] Address [address] [facility] [place] [address] Phone [phone] Care Team Providers Care Compressor Station Engineer Chief Name Role Phone Clif Summers DO Primary Care Provider + [phone] Reason for Visit * Reason Onset Date Comments Medication Refill 10/22/2023 Encounter Details Date Type Department Care Team (Late st Contact Info) Description 10/22/2023 Refill Family Medicine [address] [place] [address] Clif Summers DO [address] [place], [place] [address] [phone] Type 2 diabetes mellitus with hemoglobin A1c goal of less than 7.0% ([facility]); Type 2 diabetes mellitus with stage 3b chronic kidney disease, without long-term current use of insulin ([facility]) Allergies Active Allergy Reactions Criticality Noted Date [...] as of this encounter (statuses as of 10/22/2023) Medications Medication Sig Dispensed Refills Start Date [...] disease, without long-term current use of insulin ([facility]) inject 26 units subcutaneously at bedtime 30 [...] DAY)DX E11.9 36 mL 1 3 Active NovoLOG FlexPen 100 UNIT/ML Subcutaneous Solution Pen-injector (insulin aspart)Indications: Type 2 diabetes mellitus with hemoglobin A1c goal of less than 7.0% (HCC),Type 2 diabetes mellitus with stage 3b chronic kidney disease, without long-term current use of insulin (HCC) PER SLIDING SCALE 4 TIMES A DAY (APPOX 40 UNITS PER DAY)DX E11.9 36 mL 1 3 10/22/20 23 Discontinu ed(Refill) documented as of this encounter (statuses as of 10/22/2023) Active Problems Problem Noted Date Diagnosed Date [...] as of this encounter (statuses as of 10/22/2023) Resolved Problems Problem Noted Date Diagnosed Date [...] as of this encounter (statuses as of 10/22/2023) Immunizations Name Administration Dates Next Due COVID-19 [...] encounter Miscellaneous Notes * Telephone Encounter - Garo Roach [facility] - 10/22/2023 4:06 PM ESTSigned Prescriptions: Disp Refills NovoLOG FlexPen 100 UNIT/ML Subcutaneous S*36 mL 1 Sig: PER SLIDING SCALE 4 TIMES A DAY (APPOX 40 UNITS PER DAY)DX E11.9 Authorizing Provider: CLIF SUMMERS Ordering User: GARO ROACH * Telephone Encounter - Sheryl Bojorquez, [facility] - 10/22/2023 9:38 AM EST Pt states she received a letter from her insurance stating that they will no longer cover this medication after Dec 2023. Did you pend patient's preferred pharmacy and medication before forwarding?yes Pharmacy: [id number] [id number] [facility] Pending Prescriptions: Disp Refills NovoLOG FlexPen 100 UNIT/ML Subcutaneous *36 mL 1 Sig: PER SLIDING SCALE 4 TIMES A DAY (APPOX 40 UNITS PER DAY)DX E11.9 Last Visit: 09/03/2023 (in office), Visit date not found (telemedicine) Next Visit: 03/19/2024 If no future appointments scheduled, and last appointment is greater than a year ago, please schedule patient for a follow-up appointment Last date the medication was ordered: 06/11/23 Is this request for a controlled substance?No Urine Drug Screen: Results for orders placed [...] 2:30 PM EDT Office Visit Family Medicine [address] [place] [phone] [address] [place] [phone] Health Maintenance Due Date Last Done Comments [...] Additional history exists CKD HGB USE SMARTSET 72421 09/03/202409/03, 09/03/2023, 07/24/2023, Additional history exists CKD PHOS USE SMARTSET 20379 09/03/20240 03/2023, 05/17/2022, 01/29/2021, Additional history exists TSH 09/03/2024 09/03/2023, 01/31, 06/14/2022, Additional history exists DTaP,Tdap,and Td Vaccines (2 - Td or Tdap) 11/12/2028 11/12/2018, 08/12/2008 Pneumococcal Vaccine: 65+ Years Completed 01/16/2015, 06/13/2006, 09/10/1995 Zoster Vaccines Completed 05/19/2020, 01/2020, 08/07/2018, Additional history exists VITAMIN D LEVEL ONCE IN A LIFETIME-USE SMARTSET# 86323 Completed 01/29/2021, 06/07/2020, 07/12/2019, Additional history exists [...] as of this encounter Visit Diagnoses Diagnosis Type 2 diabetes mellitus with hemoglobin A1c goal of less than 7.0% (HCC) 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
--- OUTSIDE RECORDS SUMMARY | 2023-12-03 21:06 | External Medical Summary | Summary of Care ---
Author Name Unknown Organization [facility] Address [address] [facility] [place] [address] Phone [phone] Care Team Providers Care Butane Compressor Operator Name Role Phone Alicia Pfeiffer DO Primary Care Provider [phone] Reason for Visit * Reason Onset Date Comments Advice 11/14/2023 Med Request 11/14/2023 Encounter Details Date Type Department Care Team (Late st Contact Info) Description 11/14/2023 Telephone Family Medicine [address] [place] [address] Alicia Pfeiffer DO [address] [place] [address] [place] [address] Advice; Med Request Allergies Active [...] hemoglobin A1c goal of less than 8.0% ([facility]) Take 1 Tablet by mouth [...] disease, without long-term current use of insulin ([facility]) inject 26 units subcutaneously at [...] hemoglobin A1c goal of less than 7.0% ([facility]),Type 2 diabetes mellitus with stage 3b chronic kidney disease, without long-term current use of insulin ([facility]) PER SLIDING SCALE 4 TIMES [...] encounter Miscellaneous Notes * Telephone Encounter - Isaamr Murray LPN - 11/14/2023 10:52 AM EST [...] unknown of any sob. Offered appts at [place] and [facility] today, she declined. Requesting her to be seen in [place] today, no appts. She does have covid [...] No, explain she can only get to [facility] See Call Details? (Yes or No): Yes Patient states her cough needs to be taken care of today as she is 83 yrs old. Please call back to discuss. documented in this encounter Plan of Treatment Upcoming Encounters Date Type Department Care Team (Late st Contact Info) Description 03/19/2024 2:30 PM EDT Office Visit Family Medicine [address] [place] [address] [place] [address] Health Maintenance Due Date Last Done Comments [...] Additional history exists CKD HGB USE SMARTSET 88122 09/03/202409/03, 09/03/2023, 07/24/2023, Additional history exists CKD PHOS USE SMARTSET 46385 09/03/20240 03/2023, 05/17/2022, 01/29/2021, Additional history exists [...] filedocumented as of this encounter Care Teams Butane Compressor Operator Relationship Specialty Start Date End Date Alicia Pfeiffer DO [address] [place] [address] [place] [phone] PCP - General Internal Medicine 08/25/17 documented as of this encounter
--- OUTSIDE RECORDS SUMMARY | 2023-12-03 21:06 | External Medical Summary | Summary of Care ---
Author Name Unknown Organization [facility] Address [address] [facility] [place] [address] Phone [phone] Care Team Providers Care Core Stripper Name Role Phone Clif Summers DO Primary Care Provider + [phone] Reason for Visit * Reason Comments eRx-Medication Refill Encounter Details Date Type Department Care Team (Late st Contact Info) Description 10/15/2023 Refill Family Medicine [address] [place] [address] Clif Summers DO [address] [place] [address] [place] [phone] Acquired hypothyroidism Allergies Active Allergy Reactions Criticality Noted Date [...] as of this encounter (statuses as of 10/16/2023) Medications Medication Sig Dispensed Refills Start Date [...] hemoglobin A1c goal of less than 8.0% ([facility]) Take 1 Tablet by mouth in the [...] morning. 135 Tablet 3 11/21/20 22 Active Losartan Potassium 25 MG Oral Tablet (Cozaar)Indication s:Bradycardia,Esse ntial hypertension with goal blood pressure less than 140/90 Take 1 Tablet by mouth in the morning. 90 Tablet 3 11/21/20 22 Active Atorvastatin Calcium 40 MG Oral Tablet (Lipitor)Indicatio ns:Dyslipidemia, goal LDL below 100 Take 1 Tablet by mouth in the morning. 90 Tablet 3 11/21/20 22 Active OneTouch Verio In Vitro Strip (Glucose Blood) Use to test blood sugars up to three times daily DxE11.9 100 Strip 3 02/27/20 23 Active BD Pen Needle Mini U/F 31G X 5 MM (Insulin Pen Needle) use 1 PEN NEEDLE to inject MEDICATION subcutaneously 5 times a day 500 Each 3 04/30/20 23 Active NovoLOG FlexPen 100 UNIT/ML Subcutaneous Solution Pen-injector (insulin aspart)Indications :Type 2 diabetes mellitus with hemoglobin A1c goal of less than 7.0% (HCC),Type 2 diabetes mellitus with stage 3b chronic kidney disease, without long-term current use of insulin ([facility]) PER SLIDING SCALE 4 TIMES A DAY (APPOX 40 UNITS PER DAY)DX E11.9 36 mL 1 06/11/20 23 Active Insulin Glargine Solostar 100 UNIT/ML [...] SKIN ONCE WEEKLY 3 mL 1 08/07/20 Active Omeprazole 20 MG Oral Capsule Delayed Release (PriLOSEC)Indicati ons:Gastroesophage al reflux disease without esophagitis Take 1 Capsule by mouth in the morning. 1 hour before the first meal of the day. 90 Capsule 3 09/03/20 Active amLODIPine Besylate 2.5 MG Oral Tablet (Norvasc)Indicatio ns:HTN, goal below 140/90 Take 1 Tablet by mouth in the morning. 90 Tablet 3 09/03/20 Active FreeStyle Oscar 2 Sensor Use as directed. Change every 14 days. 3 Each 3 09/19/20 Active Escitalopram Oxalate 10 MG Oral Tablet (Lexapro) Take 1 Tablet by mouth in the morning. 90 Tablet 3 09/25/20 Active HYDROcodone-Acetam inophen 5-325 MG Oral TabletIndications: [...] OTHER MEDS). 90 Tablet 3 10/16/20 Active Levothyroxine Sodium 125 MCG Oral Tablet (Levoxyl)Indicatio ns:Acquired hypothyroidism Take 1 Tablet by mouth in the morning. (at least 30 min prior to breakfast or other meds). 90 Tablet 3 11/21/20 22 023 Discontinued documented as of this encounter (statuses as of 10/16/2023) Active Problems Problem Noted Date Diagnosed Date [...] as of this encounter (statuses as of 10/16/2023) Resolved Problems Problem Noted Date Diagnosed Date [...] lower leg 12/29/2008 01/06/2018 Mixed dyslipidemia 09/09/2008 12/08/200 9 Overview: Per Lipid Taxonomy. Other iron [...] as of this encounter (statuses as of 10/16/2023) Immunizations Name Administration Dates Next Due COVID-19 [...] encounter Miscellaneous Notes * Telephone Encounter - Narciso Keita RPh - 10/16/2023 11:11 AM ESTSigned Prescriptions: Disp Refills Levothyroxine Sodium 125 MCG Oral Tablet (*90 Tab*3 Sig: TAKE 1 TABLET BY MOUTH IN THE MORNING. (AT LEAST 30 MIN PRIOR TO BREAKFAST OR OTHER MEDS).Authorizing Provider: CLIF SUMMERS User: NARCSIO KEITA documented in this encounter Plan of Treatment Upcoming Encounters Date Type Department Care Team (Marzena hussein Contact Info) Description 03/19/2024 2:30 PM EDT Office Visit Family Medicine [address] [place] [address] [place] [address] Health Maintenance Due Date Last Done Comments [...] Additional history exists CKD HGB USE SMARTSET 12174 09/03/202409/03, 09/03/2023, 07/24/2023, Additional history exists CKD PHOS USE SMARTSET 01017 09/03/20240 03/2023, 05/17/2022, 01/29/2021, Additional history exists TSH 09/03/2024 09/03/2023, 01/31, 06/14/2022, Additional history exists DTaP,Tdap,and Td Vaccines (2 - Td or Tdap) 11/12/2028 11/12/2018, 08/12/2008 Pneumococcal Vaccine: 65+ Years Completed 01/16/2015, 06/13/2006, 09/10/1995 Zoster Vaccines Completed 05/19/2020, 01/2020, 08/07/2018, Additional history exists VITAMIN D LEVEL ONCE IN A LIFETIME-USE SMARTSET# 38407 Completed 01/29/2021, 06/07/2020, 07/12/2019, Additional history exists [...] as of this encounter Visit Diagnoses Diagnosis Acquired hypothyroidism Unspecified hypothyroidism documented in this encounter Care Teams Core Stripper Relationship Specialty Start Date End Date Clif Summers DO [address] [place] [address] [place] [phone] PCP - General Internal Medicine 08/25/17 documented as of this encounter
--- OUTSIDE RECORDS SUMMARY | 2023-12-03 21:07 | External Medical Summary ---
Author Name Unknown Address Unknown Organization K01:[facility] - [address] [place] [address] Laboratory Report Ordering Provider Test Date Status MELINA MENEZES 09/03/2023 11:08:19 Final Observation Date Value Abnormality Reference (Units ) Status TSH 09/03/2023 11:08:19 0.41 0.27-4.20 (uIU/mL) Final Performing Location [facility] - [address] [place] [address]
--- OUTSIDE RECORDS SUMMARY | 2023-12-03 21:07 | External Medical Summary | Summary of Care ---
Author Name Unknown Organization [facility] Address [address] [facility] [place] [address] Phone [phone] Care Team Providers Care Booth Cleaner Name Role Phone Claude Pfeifferanda Irish HERRERA Primary Care Provider Reason for Visit * Reason Comments Appointment No Show Encounter Details Date Type Department Care Team Description 07/28/2023 Pharmacy Pharmacy, [address] [place] [address] [place] [address] Type 2 diabetes mellitus with hemoglobin A1c goal of less than 8.0% ([facility])* Allergies Active Allergy Reactions Severity Noted Date [...] as of this encounter (statuses as of 07/28/2023) Medications Medication Sig Dispensed Refills Start Date [...] every 8 hours as needed. 0 Active Insulin Glargine Solostar 100 UNIT/ML Subcutaneous Solution Pen-injector (Basaglar KwikBhavik)Indications :Type 2 diabetes mellitus with stage 3 chronic kidney disease, without long-term current use of insulin ([facility]) inject 26 units subcutaneously at bedtime 30 mL 5 07/02/2022 Active hydroCHLOROthiazide 12.5 MG Oral Capsule (Hydrodiuril)Indica tions:HTN, goal below 140/90 Take by mouth 1 Capsule in the morning. 90 Capsule 3 08/23/2022 Active Escitalopram Oxalate 10 MG Oral Tablet [...] the morning. 90 Tablet 3 11/21/2022 Active amLODIPine Besylate 5 MG Oral Tablet (Norvasc) Take 1 Tablet by mouth in the morning. 90 Tablet 3 11/21/2022 Active OneTouch Verio In Vitro Strip (Glucose Blood) Use to test blood sugars up to three times daily DxE11.9 100 Strip 3 02/26/2023 Active Omeprazole 20 MG Oral Capsule Delayed Release (PriLOSEC) Take 1 Capsule by mouth in the morning. 1 hour before the first meal of the day. 90 Capsule 1 02/28/2023 Active BD Pen Needle Mini U/F 31G X 5 MM (Insulin Pen Needle) use 1 PEN NEEDLE to inject MEDICATION subcutaneously 5 times a day 500 Each 3 04/30/2023 Active NovoLOG FlexPen 100 UNIT/ML Subcutaneous Solution Pen-injector (insulin aspart)Indications: Type 2 diabetes mellitus with hemoglobin A1c goal of less than 7.0% ([facility]),Type 2 diabetes mellitus with stage 3b chronic kidney disease, without long-term current use of insulin ([facility]) PER SLIDING SCALE 4 TIMES A DAY (APPOX 40 UNITS PER DAY)DX E11.9 36 mL 1 06/11/2023 Active Ozempic (2 MG/DOSE) 8 MG/3ML Subcutaneous Solution Pen-injector (Semaglutide (2 MG/DOSE)) Inject 2 mg under the skin once a week. 3 mL 1 06/27/2023 Active HYDROcodone-Acetami nophen 5-325 MG Oral TabletIndications:D egeneration of lumbosacral intervertebral disc Take 1 Tablet by mouth every 8 hours as needed for Pain, Severe. Continued script 30 Tablet 0 07/18/2023 Active documented as of this encounter (statuses as of 07/28/2023) Active Problems Problem Noted Date Type 2 [...] Protocol, #19 ICD-10 update of inactive diagnosis DYSLIPIDEMIA, GOAL LDL BELOW 100 009 Overview: Per Lipid Taxonomy. HTN, goal below 140/90 10/06/2009 Overview: Modified per HTN Taxonomy. Vitamin B deficiency 08/12/2008 CLASSICAL MIGRAINE WITHOU MENTION OF INT RACTABLE MIGRAINE Senile osteoporosis Acquired hypothyroidism documented as of this encounter (statuses as of 07/28/2023) Resolved Problems Problem Noted Date Resolved Date [...] as of this encounter (statuses as of 07/28/2023) Immunizations Name Administration Dates Next Due COVID-19 mRNA, LNP-s, No Pre serve, 2-Dose Series (Moderna) 02/01/2021,01/04/2021 H1N1 2009 Influenza, IM 10/01/2009 Pneumococcal Conjugate Vacc, 13 Valent (Prevnar) 01/16/2015 Pneumococcal Polysaccharide PPV23 (Pneumovax) 06/13/2006,09/10/1995 Season Influenza, Quad, PF, Adjuvanted, 65+ Yrs, IM (FLUAD) 09/08/2020 Seasonal Influenza, PF, 6 mo ns & Above, IM , (Flulaval) 09/21/2018,08/25/2017 Seasonal Influenza, Quadriva lent Hd (Fluzone Hd) 08/14/2022,08/14/2021 Seasonal Influenza, Quadriva lent, No Preserve, IM [...] on file documented as of this encounter Progress Notes * MAYNOR Nguyen - 07/28/2023 8:57 AM EDT Diamond Rogers has not contacted the clinic to schedule/reschedule an appointment for diabetes management per referral from PCP despite multiple requests (via phone, letter and/or [facility]) to do so by our team. Diamond is discharged from the Medication Therapy Disease Management (MTDM) service at this time due to inability to connect via letter, phone and/or MyG after 4 attempts. Thank you, Kinga Fitch Sider Mechanic [facility] 07/28/2023,8:57 AM documented in this encounter Plan of Treatment Upcoming Encounters Date Type Specialty Care Team Description 09/03/2023 Office Visit Family Medicine Alicia Pfeiffer, [address] [place] [address] Health Maintenance Due Date Last Done Comments COVID-19 Vaccine (3 - Moderna series) 03/29/2021 02/01/2021, 01/04/2021 *BISPHONATE OR OTHER ACCEPTABLE MEDICATION NEEDED FOR OSTEOPOROSIS (REFER TO SMARTSET #1146) 09/18/2022 Depression Screening, Annual for Pts 12 and Over 02/12/2023 02/12/2022 DIABETES-EYE EXAM 02/15/2023 02/15/2022, , 08/09/2019, Additional history exists CKD PHOS USE SMARTSET 45598 05/17/202305/01, 01/29/2021, 06/07/2020, Additional history exists Influenza Vaccine (FLU shot) (#1) 2023 08/14/2022, 08/14/2021, 09/08/2020, Additional history exists HbA1c 08/30/2023 02/28/2023, 11/01, 08/23/2022, Additional history exists GFR 01/24/2024 07/24/2023, 01/31, 11/21/2022, Additional history exists Albumin/Creatinine Ratio 02/29/2024 023, 05/17/2022, 08/07/2021, Additional history exists DIABETES-FOOT EXAM 02/29/2024 02/28/2023, 0 02/12/2022, 04/10/2021, Additional history exists TSH 02/29/2024 02/28/2023, 05/31, 05/17/2022, Additional history exists CKD HGB USE SMARTSET 78665 07/24/202407/24, 02/28/2023, 02/28/2023, Additional history exists DXA Scan 08/27/2024 08/27/2022, 0 03/2016, 10/05/2013, Additional history exists DTaP,Tdap,and Td Vaccines (2 - Td or Tdap) 11/12/2028 11/12/2018, 08/12/2008 Pneumococcal Vaccine: 65+ Years Completed 01/16/2015, 06/13/2006, 09/10/1995 Zoster Vaccines Completed 05/19/2020, 0 01/2020, 08/07/2018, Additional history exists VITAMIN D LEVEL ONCE IN A LIFETIME-USE SMARTSET# 65041 Completed 01/29/2021, 06/07/2020, 07/12/2019, Additional history exists GARDASIL-HPV IMMUNIZATION SERIES Aged [...] hemoglobin A1c goal of less than 8.0% (HCC)- Primary documented in this encounter Care Teams Booth Cleaner Relationship Specialty Start Date End Date Alicia Pfeiffer[address] [place] [phone] PCP - General Internal Medicine 08/25/17 documented as of this encounter
--- OUTSIDE RECORDS SUMMARY | 2023-12-03 21:07 | External Medical Summary ---
Author Name Unknown Address Unknown Organization [id number]:LABORATORY [facility] - [facility] [address] [place] [address] Laboratory Report Ordering Provider Test Date Status MELINA MENEZES 09/03/2023 11:08:19 Final Observation Date Value Abnormality Reference (Units ) Status BUN 09/03/2023 11:08:19 37 Above high normal 6-20 (mg/dL) Final Creatinine 09/03/2023 11:08:19 1.6 Above high normal 0.5-1.0 (mg/dL) Final Glomerular filtration rate/1.73 sq M.predicted [Volume Rate/Area] in Serum, Plasma or Blood by Creatinine-based formula (CKD-EPI) 09/03/2023 11:08:19 31 Below low normal >=60 (mL/min) Final eGFR is calculated based on the CKD-EPI 2020 equation SODIUM 09/03/2023 11:08:19 141 135-146 (m mol/L) Final Potassium 09/03/2023 11:08:19 5.6 Above high normal 3. 5-5.1 (mmol/L) Final Cl 09/03/2023 11:08:19 108 Above high normal 98 -107 (mmol/L) Final CO2 09/03/2023 11:08:19 21 Below low normal 22- 32 (mmol/L) Final Anion gap 09/03/2023 11:08:19 12 7-15 (mmol /L) Final Glucose 09/03/2023 11:08:19 188 Above high normal 70 -120 (mg/dL) Final Calcium 09/03/2023 11:08:19 9.6 8.4-10.2 ( mg/dL) Final Albumin 09/03/2023 11:08:19 4.3 3.8-5.0 (g /dL) Final Phosphate 09/03/2023 11:08:19 3.1 2.5-4.8 (m g/dL) Final Performing Location [facility]ORY [facility] - [address] [place] [address]
--- OUTSIDE RECORDS SUMMARY | 2023-12-03 21:07 | External Medical Summary ---
Author Name Unknown Address Unknown Organization K01:LABORATORY [facility] [place] - [address] [facility] [place] [address] Laboratory Report Ordering Provider Test Date Status MELINA MENEZES 09/03/2023 11:08:19 Final Observation Date Value Abnormality Reference (Units ) Status WBC, Total 09/03/2023 11:08:19 11.30 Above high normal 4 .00-10.80 (K/uL) Final RBC 09/03/2023 11:08:19 3.65 3.85-5.15 (M/uL) Final Hemoglobin 09/03/2023 11:08:19 11.0 Below low normal 12 .0-15.3 (g/dL) Final Anemia reflex testing trigge rs on a HGB < 12.0 for Females and HGB < 13.0 for Males in accordance with the WHO Anemia Guidelines
Anemia reflex testing triggers on a HGB < 12.0 for Females and HGB < 13.0 for Males in accordance with the WHO Anemia Guidelines HCT 09/03/2023 11:08:19 36.2 36.0-45.2 (%) Final MCV 09/03/2023 11:08:19 99.2 81.5-97.5 (fL) Final MCH 09/03/2023 11:08:19 30.1 27.0-34.0 (pg) Final MCHC 09/03/2023 11:08:19 30.4 32.0-36.0 (g/dL) Final RDW 09/03/2023 11:08:19 12.6 11.5-15.5 (%) Final Platelets 09/03/2023 11:08:19 266 140-400 (K /uL) Final MPV 09/03/2023 11:08:19 11.1 6.6-11.1 ( fL) Final Nucleated erythrocytes/100 leukocytes [Ratio] in Blood by Automated count 09/03/2023 11:08:19 0 <=0 (/100 WBCs) Fi nal Performing Location LABORATORY [facility] [place] - [address] [facility] [address]
--- OUTSIDE RECORDS SUMMARY | 2023-12-03 21:07 | External Medical Summary ---
Author Name Unknown Address Unknown Organization K01:LAB[facility]ATORY [facility] [place] - [facility] [address] [place] [address] Laboratory Report Ordering Provider Test Date Status MELINA MENEZES 09/03/2023 11:08:19 Final Observation Date Value Abnormality Reference (Units ) Status Creatinine 09/03/2023 11:08:19 1.6 Above high normal 0.5-1.0 (mg/dL) Final Glomerular filtration rate/1.73 sq M.predicted [Volume Rate/Area] in Serum, Plasma or Blood by Creatinine-based formula (CKD-EPI) 09/03/2023 11:08:19 32 Below low normal >=60 (mL/min) Final eGFR is calculated based on the CKD-EPI 2020 equation Performing Location LAB[facility]ORY [facility] [place] - [facility] [address] [place] [address]
--- OUTSIDE RECORDS SUMMARY | 2023-12-03 21:07 | External Medical Summary | Summary of Care ---
Author Name Unknown Organization [facility] Address [address] [facility] [place] [address] Phone [phone] Care Team Providers Care Rescue Boat Operator Name Role Phone Alicia Pfeiffer DO Primary Care Provider + [phone] Reason for Visit * Reason Comments Outpatient Testing Encounter Details Date Type Department Care Team Description 09/03/2023 Laboratory Laboratory [address] [place] [id number] [facility] [address] [place] [address] Type 2 diabetes mellitus with stage 3b chronic kidney disease, with long-term current use of insulin ([facility]) Allergies Active Allergy Reactions Severity Noted Date [...] as of this encounter (statuses as of 09/03/2023) Medications Medication Sig Dispensed Refills Start Date [...] A1c goal of less than 8.0% ([facility]) Take 1 Tablet by mouth in [...] A1c goal of less than 7.0% ([facility]),Type 2 diabetes mellitus with stage 3b chronic kidney disease, without long-term current use of insulin ([facility]) PER SLIDING SCALE 4 TIMES A [...] the morning. 90 Tablet 3 09/03/2023 Active documented as of this encounter (statuses as of 09/03/2023) Active Problems Problem Noted Date Type 2 [...] as of this encounter (statuses as of 09/03/2023) Resolved Problems Problem Noted Date Resolved Date [...] as of this encounter (statuses as of 09/03/2023) Immunizations Name Administration Dates Next Due COVID-19 [...] Description 03/19/2024 Office Visit Family Medicine Alicia Pfeiffer[address] [place] [phone] Pending Results Name Type Priority Associated Diagnoses Date /Time RENAL FUNCTION PANEL Lab Routine Type 2 diabetes mellitus with stage 3b chronic kidney disease, with long-term current use of insulin ([facility]) 09/03/2023 11:08 AM EDT HEMOGLOBIN A1C Lab Routine Type 2 diabetes mellitus with stage 3b chronic kidney disease, with long-term current use of insulin ([facility]) 09/03/2023 11:08 AM EDT CBC WITH WBC DIFFERENTIAL AND ANEMIA REFLEX WORKUP Lab Routine Type 2 diabetes mellitus with stage 3b chronic kidney disease, with long-term current use of insulin ([facility]) 09/03/2023 11:08 AM EDT ANEMIA CBC Lab Routine Type 2 diabetes mellitus with stage 3b chronic kidney disease, with long-term current use of insulin ([facility]) 09/03/2023 11:08 AM EDT DIFFERENTIAL, AUTOMATED Lab Routine Type 2 diabetes mellitus with stage 3b chronic kidney disease, with long-term current use of insulin ([facility]) 09/03/2023 11:08 AM EDT ANEMIA REFLEX CHEMISTRY HOLD Lab Routine Type 2 diabetes mellitus with stage 3b chronic kidney disease, with long-term current use of insulin ([facility]) 09/03/2023 11:08 AM EDT Health Maintenance Due Date Last Done Comments *BISPHONATE OR OTHER ACCEPTABLE MEDICATION NEEDED FOR OSTEOPOROSIS (REFER TO SMARTSET #1146) 09/18/2022 Depression Screening 02/12/2023 02/12/2022 CKD PHOS USE SMARTSET 24126 05/17/202305/01, 01/29/2021, 06/07/2020, Additional history exists COVID-19 Vaccine ( season) 2023 02/01/2021, 01/04/2021 HbA1c 08/30/2023 02/28/2023, 11/01, 08/23/2022, Additional history exists GFR 01/24/2024 07/24/2023, 01/31, 11/21/2022, Additional history exists Albumin/Creatinine Ratio 02/29/2024 023, 05/17/2022, 08/07/2021, Additional history exists Diabetic Foot Exam 02/29/2024 02/28/2023, 0 02/12/2022, 04/10/2021, Additional history exists TSH 02/29/2024 02/28/2023, 05/31, 05/17/2022, Additional history exists CKD HGB USE SMARTSET 61013 07/24/202407/24, 02/28/2023, 02/28/2023, Additional history exists DIABETES-EYE EXAM 08/18/2024 08/18/2023, , 05/26/2020, Additional history exists DXA Scan 08/27/2024 08/27/2022, 0 03/2016, 10/05/2013, Additional history exists DTaP,Tdap,and Td Vaccines (2 - Td or Tdap) 11/12/2028 11/12/2018, 08/12/2008 Pneumococcal Vaccine: 65+ Years Completed 01/16/2015, 06/13/2006, 09/10/1995 Zoster Vaccines Completed 05/19/2020, 020 01/2020, 08/07/2018, Additional history exists VITAMIN D LEVEL ONCE IN A LIFETIME-USE SMARTSET# 33463 Completed 01/29/2021, 06/07/2020, 07/12/2019, Additional history exists Influenza Vaccine (FLU shot) Completed 03/2023, 08/14/2022, [...] Diagnoses Diagnosis Type 2 diabetes mellitus with stage 3b chronic kidney disease, with long-term current use of insulin (HCC) documented in this encounter Care Teams Rescue Boat Operator Relationship Specialty Start Date End Date Alicia Pfeiffer[address] [place] [address] PCP - General Internal Medicine 08/25/17 documented as of this encounter
--- OUTSIDE RECORDS SUMMARY | 2023-12-03 21:07 | External Medical Summary ---
Author Name Unknown Address Unknown Organization K01:[facility] - [address] [facility] [place] [address] Laboratory Report Ordering Provider Test Date Status MELINA MENEZES 09/03/2023 11:08:19 Final Observation Date Value Abnormality Reference (Units ) Status HbA1C 09/03/2023 11:08:19 9.1 Above high normal 4. 0-5.6 (%) Final The use of HbA1c to monitor glycemic status is based on normal hemoglobin and HbA composition. This test should not be used in patients with abnormal hemoglobin that affects the half life of the red blood cell or the in vivo glycation rates. Glucose, estimated average 09/03/2023 11:08:19 214 Above high normal <126 (mg/dL) Fin al Performing Location [facility] [place] - [address] [facility] [address]
--- OUTSIDE RECORDS SUMMARY | 2023-12-03 21:07 | External Medical Summary ---
Author Name Unknown Address Unknown Organization K01:[facility]ATORY [facility] [place] - [address] [place] [address] Laboratory Report Ordering Provider Test Date Status MELINA MENEZES 09/03/2023 11:08:19 Final Observation Date Value Abnormality Reference (Units ) Status Iron 09/03/2023 11:08:19 72 33-151 (ug /dL) Final Iron-binding capacity 09/03/2023 11:08:19 313 250-425 (ug/dL) Final Transferrin Sat % 09/03/2023 11:08:19 23 15 -55 (%) Final Performing Location [facility]ORY [facility] [place] - [address] [place] [address]
--- OUTSIDE RECORDS SUMMARY | 2023-12-03 21:07 | External Medical Summary | Summary of Care ---
Author Name Unknown Organization [facility] Address [address] [facility] [place] [address] Phone [phone] Care Team Providers Care Big Data Admin Name Role Phone Clif Summers DO Primary Care Provider + [phone] Reason for Visit * Reason Onset Date Comments Medication Refill 07/31/2023 Encounter Details Date Type Department Care Team Description 07/31/2023 Refill Family Medicine [address] [place] [address] Clif Summers DO [address] [place] [address] [place] [address] Type 2 diabetes mellitus with stage 3 chronic kidney disease, without long-term current use of insulin ([facility]) Allergies Active Allergy Reactions Severity Noted Date [...] as of this encounter (statuses as of 07/31/2023) Medications Medication Sig Dispensed Refills Start Date [...] every 8 hours as needed. 0 Active hydroCHLOROthiazide 12.5 MG Oral Capsule (Hydrodiuril)Indica tions:HTN, goal below 140/90 Take by mouth 1 Capsule in the morning. 90 Capsule 3 2 Active Escitalopram Oxalate 10 MG Oral Tablet (Lexapro) Take 1 Tablet (10 mg) by mouth in the morning. 90 Tablet 3 2 Active Levothyroxine Sodium 125 MCG Oral Tablet [...] the morning. 90 Tablet 3 2 Active amLODIPine Besylate 5 MG Oral Tablet [...] disease, without long-term current use of insulin ([facility]) PER SLIDING SCALE 4 TIMES A DAY (APPOX 40 UNITS PER DAY)DX E11.9 36 mL 1 3 Active Ozempic (2 MG/DOSE) 8 MG/3ML Subcutaneous Solution Pen-injector (Semaglutide (2 MG/DOSE)) Inject 2 mg under the skin once a week. 3 mL 1 3 Active HYDROcodone-Acetami nophen 5-325 MG Oral TabletIndications:D egeneration of lumbosacral intervertebral disc Take 1 Tablet by mouth every 8 hours as needed for Pain, Severe. Continued script 30 Tablet 0 3 Active Insulin Glargine Solostar 100 UNIT/ML Subcutaneous Solution Pen-injector (Basaglar KwikPen)Indications :Type 2 diabetes mellitus with stage 3 chronic kidney disease, without long-term current use of insulin ([facility]) inject 26 units subcutaneously at bedtime 30 mL 3 3 Active Omeprazole 20 MG Oral Capsule Delayed Release (PriLOSEC) Take 1 Capsule by mouth in the morning. 1 hour before the first meal of the day. 90 Capsule 1 3 Active Insulin Glargine Solostar 100 UNIT/ML Subcutaneous Solution Pen-injector (Basaglar KwikPen)Indications :Type 2 diabetes mellitus with stage 3 chronic kidney disease, without long-term current use of insulin ([facility]) inject 26 units subcutaneously at bedtime 30 mL 5 2 07/31/20 23 Discontinu ed(Refill) Omeprazole 20 MG Oral Capsule Delayed Release (PriLOSEC) Take 1 Capsule by mouth in the morning. 1 hour before the first meal of the day. 90 Capsule 1 3 07/31/20 23 Discontinu ed(Refill) documented as of this encounter (statuses as of 07/31/2023) Active Problems Problem Noted Date Type 2 [...] as of this encounter (statuses as of 07/31/2023) Resolved Problems Problem Noted Date Resolved Date [...] 06/06/2016 08/23/2022 HTN, goal below 150/90 05/30/2016 Overview: Per Nephrology HTN, goal below 140/80 [...] DM type 2, not at goal 04/11/2009 10//200 9 Overview: Modified per Diabetes protocol #14. [...] as of this encounter (statuses as of 07/31/2023) Immunizations Name Administration Dates Next Due COVID-19 [...] encounter Miscellaneous Notes * Telephone Encounter - Clif Summers DO - 07/31/2023 11:30 AM EDTSigned Prescriptions: Disp Refills Insulin Glargine Solostar 100 UNIT/ML Subc*30 mL 3 Sig: inject 26 units subcutaneously at bedtime Authorizing Provider: CLIF SUMMERS Omeprazole 20 MG Oral Capsule Delayed Rele*90 Cap*1 Sig: Take 1 Capsule by mouth in the morning. 1 hour before the first meal of the day. Authorizing Provider: CLIF SUMMERS * Telephone Encounter - Francesca Rodriguez RN - 07/31/2023 10:28 AM EDTPending Prescriptions: Disp Refills Insulin Glargine Solostar 100 UNIT/ML Subc*30 mL 3 Sig: inject 26 units subcutaneously at bedtime Omeprazole 20 MG Oral Capsule Delayed Rele*90 Cap*1 Sig: Take 1 Capsule by mouth in the morning. 1 hour before the first meal of the day. * Telephone Encounter - Mira Moncada - 07/31/2023 9:41 AM EDT Did you pend patient's preferred pharmacy and medication before forwarding?yes Pharmacy: [id number] [address] [facility] Pending Prescriptions: Disp Refills Insulin Glargine Solostar 100 UNIT/ML Sub*30 mL 5 Sig: inject 26 units subcutaneously at bedtime Last Visit: 02/28/2023 (in office), Visit date not found (telemedicine) Next Visit: 09/03/2023 If no future appointments scheduled, and last appointment is greater than a year ago, please schedule patient for a follow-up appointment Last date the medication was ordered: 07/02/22 Is this request for a controlled substance?No [...] Labs: Lab Results Component Value Date/Time CREAT 1.48 (A) 07/24/2023 12:00 AM CREAT 1.6 (H) 11/08/2020 11:46 AM CREAT 0.5 (L) 03/16/1997 02:55 PM POTASSIUM 4.8 07/24/2023 12:00 AM POTASSIUM 4.8 11/08/2020 11:46 AM POTASSIUM 4.4 03/16/1997 02:55 PM TSH 0.57 02/28/2023 01:07 PM TSH 1.199 09/12/2020 12:00 AM TSH 2.11 06/07/2020 11:34 AM TSH 7.40 (H) 03/16/1997 02:55 PM LDLCALC 70 05/17/2022 12:22 PM LDLCALC 61 11/08/2020 11:46 AM LDLCALC 118. 09/15/1996 09:35 AM LDLDIRECT 70 02/28/2023 01:07 PM LDLDIRECT NOT APPLICABLE 11/08/2020 11:46 AM ALT 16 11/21/2022 03:03 PM ALT 14 11/08/2020 11:46 AM ALT 17 09/15/1996 09:35 AM HGBA1C 8.7 (H) 02/28/2023 01:07 PM HGBA1C 8.6 (H) 11/08/2020 11:46 AM HGBA1C 11.1 (H) 03/16/1997 02:55 PM documented in this encounter Plan of Treatment Upcoming Encounters Date Type Specialty Care Team Description 09/03/2023 Office Visit Family Medicine Clif Summers, [address] [place] [address] Health Maintenance Due Date Last Done Comments COVID-19 Vaccine (3 - Moderna series) 03/29/2021 02/01/2021, 01/04/2021 *BISPHONATE OR OTHER ACCEPTABLE MEDICATION NEEDED FOR OSTEOPOROSIS (REFER TO SMARTSET #1146) 09/18/2022 Depression Screening, Annual for Pts 12 and Over 02/12/2023 02/12/2022 DIABETES-EYE EXAM 02/15/2023 02/15/2022, , 08/09/2019, Additional history exists CKD PHOS USE SMARTSET 13535 05/17/202305/01, 01/29/2021, 06/07/2020, Additional history exists Influenza [...] Additional history exists CKD HGB USE SMARTSET 39555 07/24/202407/24, 02/28/2023, 02/28/2023, Additional history exists DXA Scan 08/27/2024 08/27/2022, 0 03/2016, 10/05/2013, Additional history exists DTaP,Tdap,and Td Vaccines (2 - Td or Tdap) 11/12/2028 11/12/2018, 08/12/2008 Pneumococcal Vaccine: 65+ Years Completed 01/16/2015, 06/13/2006, 09/10/1995 Zoster Vaccines Completed 05/19/2020, 01/2020, 08/07/2018, Additional history exists VITAMIN D LEVEL ONCE IN A LIFETIME-USE SMARTSET# 85147 Completed 01/29/2021, 06/07/2020, 07/12/2019, Additional history exists [...] Diagnosis Type 2 diabetes mellitus with stage 3 chronic kidney disease, without long-term current use of insulin (HCC) documented in this encounter Care Teams Big Data Admin Relationship Specialty Start Date End Date Clif Summers[address] [place] [address] PCP - General Internal Medicine 08/25/17 documented as of this encounter
--- OUTSIDE RECORDS SUMMARY | 2023-12-03 21:07 | External Medical Summary | Summary of Care ---
Author Name Unknown Organization [facility] Address [address] [facility] [place] [address] Phone [phone] Care Team Providers Care Forensic Pathologist Name Role Phone Claude Summersanda Irish HERRERA Primary Care Provider + [phone] Reason for Visit * Reason Comments eRx-Medication Refill Encounter Details Date Type Department Care Team Description 08/07/2023 Refill Family Medicine [address] [place] [address] Erika Bernabe PA-C [address] [place] [address] [place] [id number] Allergies Active Allergy Reactions Severity Noted Date [...] as of this encounter (statuses as of 08/07/2023) Medications Medication Sig Dispensed Refills Start Date [...] goal of less than 8.0% ([facility]) Take 1 Tablet by mouth in the morning. 30 Tab 0 08/14/20 18 Active Tylenol 8 Hour Arthritis Pain 650 MG Oral Tablet Extended Release Take 1 Tablet by mouth every 8 hours as needed. 0 Active hydroCHLOROthiazid e 12.5 MG Oral Capsule (Hydrodiuril)Indic ations:HTN, goal below 140/90 Take by mouth 1 Capsule in the morning. 90 Capsule 3 08/23/20 22 Active Escitalopram Oxalate 10 MG Oral Tablet (Lexapro) Take 1 Tablet (10 mg) by mouth in the morning. 90 Tablet 3 10/16/20 22 Active Levothyroxine Sodium 125 MCG Oral Tablet (Levoxyl)Indicatio ns:Acquired hypothyroidism Take 1 Tablet by mouth in the morning. (at least 30 min prior to breakfast or other meds). 90 Tablet 3 11/21/20 22 Active Metoprolol Succinate ER 100 MG Oral [...] morning. 90 Tablet 3 11/21/20 22 Active amLODIPine Besylate 5 MG Oral Tablet [...] times a day 500 Each 3 04/30/20 Active NovoLOG FlexPen 100 UNIT/ML Subcutaneous Solution Pen-injector (insulin aspart)Indications :Type 2 diabetes mellitus with hemoglobin A1c goal of less than 7.0% (HCC),Type 2 diabetes mellitus with stage 3b chronic kidney disease, without long-term current use of insulin ([facility]) PER SLIDING SCALE 4 TIMES A DAY (APPOX 40 UNITS PER DAY)DX E11.9 36 mL 1 06/11/20 23 Active HYDROcodone-Acetam inophen 5-325 MG Oral TabletIndications: Degeneration of lumbosacral intervertebral disc Take 1 Tablet by mouth every 8 hours as needed for Pain, Severe. Continued script 30 Tablet 0 07/18/20 23 Active Insulin Glargine Solostar 100 UNIT/ML Subcutaneous Solution Pen-injector (Basaglar KwikPen)Indication s:Type 2 diabetes mellitus with stage 3 chronic kidney disease, without long-term current use of insulin ([facility]) inject 26 units subcutaneously at bedtime 30 mL 3 07/31/20 23 Active Omeprazole 20 MG Oral Capsule Delayed Release (PriLOSEC) Take 1 Capsule by mouth in the morning. 1 hour before the first meal of the day. 90 Capsule 1 07/31/20 23 Active Ozempic (2 MG/DOSE) 8 MG/3ML Subcutaneous Solution Pen-injector (Semaglutide (2 MG/DOSE)) INJECT 2MG UNDER THE SKIN ONCE WEEKLY 3 mL 1 08/07/20 23 Active Ozempic (2 MG/DOSE) 8 MG/3ML Subcutaneous Solution Pen-injector (Semaglutide (2 MG/DOSE)) Inject 2 mg under the skin once a week. 3 mL 1 06/27/20 23 023 Discontinued documented as of this encounter (statuses as of 08/07/2023) Active Problems Problem Noted Date Type 2 [...] as of this encounter (statuses as of 08/07/2023) Resolved Problems Problem Noted Date Resolved Date [...] as of this encounter (statuses as of 08/07/2023) Immunizations Name Administration Dates Next Due COVID-19 [...] encounter Miscellaneous Notes * Telephone Encounter - Sarita Hinojosa RPh - 08/07/2023 1:36 PM EDTSigned Prescriptions: Disp Refills Ozempic (2 MG/DOSE) 8 MG/3ML Subcutaneous *3 mL 1 Sig: INJECT 2MG UNDER THE SKIN ONCE WEEKLYAuthorizing Provider: CLIF SUMMERS User: SARITA HINOJOSA- * Telephone Encounter - Sarita Hinojosa RPh - 08/07/2023 1:36 PM EDT Rerouted rx to new pharmacy as requested. Thank you, Sarita Hinojosa PharmD Clinical Pharmacist [facility] ([facility] (formerly Telepharm[facility]) [phone] 08/07/2023, 1:36 PM * Telephone Encounter - MAYNOR Mcintosh - 08/07/2023 1:03 PM EDT [facility] pt tomorrow and pt is due on Friday. Please reroute Rx to E [id number] [id number] [facility]. Pending Prescriptions: Disp Refills Ozempic (2 MG/DOSE) 8 MG/3ML Subcutaneous* 4 Sig: INJECT 2MG UNDER THE SKIN ONCE WEEKLY Last Visit: 02/28/2023 (in office), Visit date not found (telemedicine) 09/03/2023 If no future appointments scheduled, and last appointment is greater than a year ago, please schedule patient for a follow-up appointment Last date the medication was ordered: 06/27/2023 Patient Phone Numbers Labs: Lab Results Component [...] 09/03/2023 Office Visit Family Medicine Clif Summers, [address] [place] [address] Health Maintenance Due Date Last Done Comments COVID-19 Vaccine (3 - Moderna series) 03/29/2021 02/01/2021, 01/04/2021 *BISPHONATE OR OTHER ACCEPTABLE MEDICATION NEEDED FOR OSTEOPOROSIS (REFER TO SMARTSET #1146) 09/18/2022 Depression Screening 02/12/2023 02/12/2022 DIABETES-EYE EXAM 02/15/2023 02/15/2022, , 08/09/2019, Additional history exists CKD PHOS USE SMARTSET 01678 05/17/202305/01, 01/29/2021, 06/07/2020, Additional history exists Influenza [...] Additional history exists CKD HGB USE SMARTSET 10165 07/24/202407/24, 02/28/2023, 02/28/2023, Additional history exists DXA Scan 08/27/2024 08/27/2022, 03/2016, 10/05/2013, Additional history exists DTaP,Tdap,and Td Vaccines (2 - Td or Tdap) 11/12/2028 11/12/2018, 08/12/2008 Pneumococcal Vaccine: 65+ Years Completed 01/16/2015, 06/13/2006, 09/10/1995 Zoster Vaccines Completed 05/19/2020, 01/2020, 08/07/2018, Additional history exists VITAMIN D LEVEL ONCE IN A LIFETIME-USE SMARTSET# 04061 Completed 01/29/2021, 06/07/2020, 07/12/2019, Additional history exists [...] filedocumented as of this encounter Care Teams Forensic Pathologist Relationship Specialty Start Date End Date Clif Summers, [address] [place] [address] PCP - General Internal Medicine 08/25/17 documented as of this encounter
--- OUTSIDE RECORDS SUMMARY | 2023-12-03 21:07 | External Medical Summary | Summary of Care ---
Author Name Unknown Organization [facility] Address [address] [facility] [place] [address] Phone [phone] Care Team Providers Care Director Of Communications Name Role Phone Alicia Pfeiffer DO Primary Care Provider + [phone] Reason for Visit * Reason Onset Date Comments Re-Check Medication Administration 09/03/2023 Flu an d/or Pneumo Inj Encounter Details Date Type Department Care Team Description 09/03/2023 Office Visit Family Medicine [address] [place] [address] Alicia Pfeiffer DO [address] [place] [address] [place] [address] Type 2 diabetes mellitus with hemoglobin A1c goal of less than 8.0% ([facility])*; Need for prophylactic vaccination and inoculation against influenza; Type 2 diabetes mellitus with stage 3b chronic kidney disease, with long-term current use of insulin ([facility]); Acquired hypothyroidism; HTN, goal below 140/90; Hyperlipidemia with target LDL less than 70; Senile osteoporosis; Gastroesophageal reflux disease without esophagitis Allergies Active Allergy Reactions Severity Noted Date [...] hemoglobin A1c goal of less than 7.0% ([facility]),Type 2 diabetes mellitus with stage 3b chronic kidney disease, without long-term current use of insulin ([facility]) PER SLIDING SCALE 4 TIMES [...] without long-term current use of insulin ([facility]) inject 26 units subcutaneously [...] morning. 90 Tablet 3 09/03/20 23 Active hydroCHLOROthiazid e 12.5 MG Oral Capsule (Hydrodiuril)Indic ations:HTN, goal below 140/90 Take by mouth 1 Capsule in the morning. 90 Capsule 3 08/23/20 22 023 Discontinued amLODIPine Besylate 5 MG Oral Tablet (Norvasc) Take 1 Tablet by mouth in the morning. 90 Tablet 3 11/21/20 22 023 Discontinued Omeprazole 20 MG Oral Capsule Delayed Release (PriLOSEC) Take 1 Capsule by mouth in the morning. 1 hour before the first meal of the day. 90 Capsule 1 07/31/20 23 023 Discontinued(Re fill) documented as of this encounter (statuses as [...] DM type 2, not at goal 04/11/2009 10/15/200 9 Overview: Modified per Diabetes protocol #14. [...] on file documented as of this encounter Last Filed Vital Signs Vital Sign Reading Time Taken Comments Blood Pressure 110/58 09/03/2023 10:23 AM EDT Pulse 78 09/03/2023 10:23 AM EDT Temperature 36.2 C (97.1 F) 09/03/2023 10:23 AM E DT Respiratory Rate - - Oxygen Saturation 94% 09/03/2023 10:23 AM EDT Inhaled Oxygen Concentration - - Weight 93.5 kg (206 lb 3.2 oz) 09/03/2023 10:23 AM EDT Height - - Body Mass Index 37.71 06/14/2022 2:07 PM EDT documented in this encounter Progress Notes * Aliciajames Stewartsergio Pfeiffer, DO - 09/03/2023 10:32 AM EDT Subjective: Diamond Rogers is a 83 year old female. Chief Complaint Patient presents with Re-Check Medication Administration Flu and/or Pneumo Inj HPI: Diamond Rogers presents today for routine follow up. Today she reports doing well. Feet are not swelling despite stopping the HCTZ. BP is borderline low. She does get some orthostatic symptoms when she stands up. She did fall about 1.5 months ago - was seen in the ER and felt to only be bruised. Stomach is doing well on omeprazole. Mood is doing well. She remains on lexapro. Her granddaughter continues to live with her. She would like to get her COVID booster. Will look into getting it at [employer]. Still uses the hydrocodone intermittently. Discussed her DEXA results. Renal function limits treatment. She would like to continue calcium + vitamin D and weight-bearing exercise. PMH: Patient Active Problem List Diagnosis Code CLASSICAL MIGRAINE WITHOU MENTION OF INTRACTABLE MIGRAINE G43.109 Senile osteoporosis M81.0 Acquired hypothyroidism E03.9 Vitamin B deficiency E53.9 HTN, goal below 140/90 I10 Hyperlipidemia with target LDL less than 70 E78.5 Severe obesity with body mass index (BMI) of 35.0 to 39.9 with serious comorbidity ([facility]) E66.01 Degeneration of lumbosacral intervertebral disc M51.37 DM type 2 causing neurological disease ([facility]) E11.49 Esophageal reflux K21.9 Esophageal spasm K22.4 CECILIA inhibitor intolerance Peripheral sensory neuropathy G60.8 Low HDL (under 40) E78.6 Primary osteoarthritis of both hands M19.041, M19.042 Type 2 diabetes mellitus with hemoglobin A1c goal of less than 8.0% ([facility]) E11.9 Mild nonproliferative diabetic retinopathy of both eyes without macular edema associated with type 2 diabetes mellitus (HCC) E11.3293 Diabetes mellitus type 2 with peripheral artery disease ([facility]) E11.51 Current moderate episode of major depressive disorder without prior episode ([facility]) F32.1 Type 2 diabetes mellitus with diabetic neuropathy ([facility]) E11.40 Abnormal MRI, spine R93.7 Hypertensive kidney disease with stage 3b chronic kidney disease I12.9, N18.32 Spinal stenosis of lumbar region without neurogenic claudication M48.061 Type 2 diabetes mellitus with stage 3b chronic kidney disease, with long-term current use of insulin ([facility]) E11.22, N18.32, Z79.4 Chronic kidney disease, stage 3b ([facility]) N18.32 Current Outpatient Medications Medication Sig Dispense Refill VITAMIN B-12 100 MCG PO TABS 1 po daily 30 5 XALATAN 0.005 % OP SOLN one drop each eye in the evening 0 Aspirin 81 MG Tablet Take 1 Tablet by mouth in the morning. 30 Tab 0 Tylenol 8 Hour Arthritis Pain 650 MG Oral Tablet Extended Release Take 1 Tablet by mouth every 8 hours as needed. Escitalopram Oxalate 10 MG Oral Tablet (Lexapro) Take 1 Tablet (10 mg) by mouth in the morning. 90 Tablet 3 Levothyroxine Sodium 125 MCG Oral Tablet (Levoxyl) Take 1 Tablet by mouth in the morning. (at least30 min prior to breakfast or other meds). 90 Tablet 3 Metoprolol Succinate ER 100 MG Oral Tablet Extended Release 24 Hour (toPROL XL) Take 1.5 Tablets bymouth in the morning. 135 Tablet 3 Losartan Potassium 25 MG Oral Tablet (Cozaar) Take 1 Tablet by mouth in the morning. 90 Tablet 3 Atorvastatin Calcium 40 MG Oral Tablet (Lipitor) Take 1 Tablet by mouth in the morning. 90 Tablet 3 amLODIPine Besylate 5 MG Oral Tablet (Norvasc) Take 1 Tablet by mouth in the morning. 90 Tablet 3 OneTouch Verio In Vitro Strip (Glucose Blood) Use to test blood sugars up to three times daily DxE11.9 100 Strip 3 BD Pen Needle Mini U/F 31G X 5 MM (Insulin Pen Needle) use 1 PEN NEEDLE to inject MEDICATION subcutaneously 5 times a day 500 Each 3 NovoLOG FlexPen 100 UNIT/ML Subcutaneous Solution Pen-injector (insulin aspart) PER SLIDING SCALE 4 TIMES A DAY (APPOX 40 UNITS PER DAY)DX E11.9 36 mL 1 HYDROcodone-Acetaminophen 5-325 MG Oral Tablet Take 1 Tablet by mouth every 8 hours as needed for Pain, Severe. Continued script 30 Tablet 0 Insulin Glargine Solostar 100 UNIT/ML Subcutaneous Solution Pen-injector (Basaglar KwikPen) inject 26 units subcutaneously at bedtime 30 mL 3 Omeprazole 20 MG Oral Capsule Delayed Release (PriLOSEC) Take 1 Capsule by mouth in the morning. 1 hour before the first meal of the day. 90 Capsule 1 Ozempic (2 MG/DOSE) 8 MG/3ML Subcutaneous Solution Pen-injector (Semaglutide (2 MG/DOSE)) INJECT 2MG UNDER THE SKIN ONCE WEEKLY 3 mL 1 No current facility-administered medications for this visit. Review of patient's allergies indicates: Allergen Reactions Nsaids Renal complications Worsening of renal function Baclofen Other (Please comment) Dizzy, nausea Effexor [Venlafaxine] Itching, panic attack Levaquin [Levofloxacin Hemihydrate] nausea,sleeplessness Meclizine made dizziness worse Nitroglycerin Passed out, hit head Tramadol Hcl dizziness,syncope Lisinopril Cough Zoloft [Sertraline Hcl] Itching itching Objective: BP 110/58 | Pulse 78 | Temp 36.2 C (97.1 F) | Wt 93.5 kg (206 lb 3.2 oz) | SpO2 94% | BMI 37.71kg/m | BSA 2.02 m General: alert, healthy, no distress, well nourished, and well developed Neck: supple, no adenopathy, thyroid normal size, non-tender, without nodularity Heart: regular rate & rhythm and no murmur Lungs: chest symmetric with normal AP diameter, no chest deformities noted, normal respiratory rateand rhythm, lungs clear to auscultation Abdomen: abdomen soft and non-tender Extremities: no joint deformities, effusion, or inflammation, no edema Neuro Exam: alert & oriented x 3 with fluent speech, no focal motor/sensory deficits, gait normal, ambulates with a cane Skin: skin color, texture, turgor are normal, no rashes or significant lesions ASSESSMENT/PLAN: Type 2 diabetes mellitus with hemoglobin A1c goal of less than 8.0% ([facility]) (Primary) - update labs, continue same meds for now. She does have a CGM. Need for prophylactic vaccination and inoculation against influenza - INFLUENZA VACC, QUAD, HIGH DOSE ([facility]) Type 2 diabetes mellitus with stage 3b chronic kidney disease, with long-term current use of insulin ([facility]) - RENAL FUNCTION PANEL; Future; Expected date: 09/03/2023 - HEMOGLOBIN A1C; Future; Expected date: 09/03/2023 - CBC WITH WBC DIFFERENTIAL AND ANEMIA REFLEX WORKUP; Future; Expected date: 09/03/2023 Acquired hypothyroidism - continue levothyroxine. HTN, goal below 140/90 - reduce amlodipine to 2.5 mg. - amLODIPine Besylate 2.5 MG Oral Tablet (Norvasc); Take 1 Tablet by mouth in the morning. Hyperlipidemia with target LDL less than 70 - continue atorvastatin Senile osteoporosis- continue calcium + vitamin D and weight bearing exercise. Gastroesophageal reflux disease without esophagitis - doing well on omeprazole. Continue. - Omeprazole 20 MG Oral Capsule Delayed Release (PriLOSEC); Take 1 Capsule by mouth in the morning.1 hour before the first meal of the day. Follow-up: Return in about 6 months (around 03/04/2024). | Check-out note: Labs today Alicia Pfeiffer DO documented in this encounter Plan of Treatment Upcoming Encounters Date Type Specialty Care Team Description 03/19/2024 Office Visit Family Medicine Alicia Pfeiffer DO [address] [place] [address] [place] [address] Pending Results Name Type Priority Associated Diagnoses Date /Time RENAL FUNCTION PANEL Lab Routine Type 2 diabetes mellitus with stage 3b chronic kidney disease, with long-term current use of insulin ([facility]) 09/03/2023 11:08 AM EDT HEMOGLOBIN A1C Lab Routine Type 2 diabetes mellitus with stage 3b chronic kidney disease, with long-term current use of insulin ([facility]) 09/03/2023 11:08 AM EDT CBC WITH WBC DIFFERENTIAL AND ANEMIA REFLEX WORKUP Lab Routine Type 2 diabetes mellitus with stage 3b chronic kidney disease, with long-term current use of insulin ([facility]) 09/03/2023 11:08 AM EDT Scheduled Orders Name Type Priority Associated Diagnoses Orde r Schedule RENAL FUNCTION PANEL Lab Routine Type 2 diabetes mellitus with stage 3b chronic kidney disease, with long-term current use of insulin ([facility]) Expected: 09/03/2023 (Approximate), Expires: 09/02/2024 HEMOGLOBIN A1C Lab Routine Type 2 diabetes mellitus with stage 3b chronic kidney disease, with long-term current use of insulin (HCC) Expected: 09/03/2023 (Approximate), Expires: 09/02/2024 CBC WITH WBC DIFFERENTIAL AND ANEMIA REFLEX WORKUP Lab Routine Type 2 diabetes mellitus with stage 3b chronic kidney disease, with long-term current use of insulin (HCC) Expected: 09/03/2023 (Approximate), Expires: 09/03/2024 Health Maintenance Due Date Last Done Comments *BISPHONATE OR OTHER ACCEPTABLE MEDICATION NEEDED FOR OSTEOPOROSIS (REFER TO SMARTSET #1146) 09/18/2022 Depression Screening 02/12/2023 02/12/2022 CKD PHOS USE SMARTSET 22456 05/17/202305/01, 01/29/2021, 06/07/2020, Additional history exists COVID-19 Vaccine ( season) 2023 02/01/2021, 01/04/2021 HbA1c 08/30/2023 02/28/2023, 11/01, 08/23/2022, Additional history exists GFR 01/24/2024 07/24/2023, 01/31, 11/21/2022, Additional history exists Albumin/Creatinine Ratio 02/29/2024 023, 05/17/2022, 08/07/2021, Additional history exists Diabetic Foot Exam 02/29/2024 02/28/2023, 0 02/12/2022, 04/10/2021, Additional history exists TSH 02/29/2024 02/28/2023, 05/31, 05/17/2022, Additional history exists CKD HGB USE SMARTSET 22014 07/24/202407/24, 02/28/2023, 02/28/2023, Additional history exists DIABETES-EYE EXAM 08/18/2024 08/18/2023, , 05/26/2020, Additional history exists DXA Scan 08/27/2024 08/27/2022, /0 03/2016, 10/05/2013, Additional history exists DTaP,Tdap,and Td Vaccines (2 - Td or Tdap) 11/12/2028 11/12/2018, 08/12/2008 Pneumococcal Vaccine: 65+ Years Completed 01/16/2015, 06/13/2006, 09/10/1995 Zoster Vaccines Completed 05/19/2020, 01/2020, 08/07/2018, Additional history exists VITAMIN D LEVEL ONCE IN A LIFETIME-USE SMARTSET# 07258 Completed 01/29/2021, 06/07/2020, 07/12/2019, Additional history exists [...] goal of less than 8.0% (HCC)- Primary Need for prophylactic vaccination and inoculation against influenza Type 2 diabetes mellitus with stage 3b chronic kidney disease, with long-term current use of insulin (HCC) Acquired hypothyroidism Unspecified hypothyroidism HTN, goal below 140/90 Unspecified essential hypertension Hyperlipidemia with target LDL less than 70 Other and unspecified hyperlipidemia Senile osteoporosis Gastroesophageal reflux disease without esophagitis Esophageal reflux documented in this encounter Care Teams Director Of Communications Relationship Specialty Start Date End Date Alicia Pfeiffer, [address] [place] [address] PCP - General Internal Medicine 08/25/17 documented as of this encounter"
--- OUTSIDE RECORDS SUMMARY | 2023-12-03 21:07 | External Medical Summary ---
Author Name Unknown Address Unknown Organization K01:[facility] - [address] [place] [id number] Laboratory Report Ordering Provider Test Date Status MELINA MENEZES 09/03/2023 11:08:19 Final Observation Date Value Abnormality Reference (Units ) Status Folic Acid 09/03/2023 11:08:19 12.7 >4.5 (ng/ mL) Final Performing Location [facility] - [address] [place] [id number]
--- OUTSIDE RECORDS SUMMARY | 2023-12-03 21:07 | External Medical Summary | Summary of Care ---
Author Name Unknown Organization [facility] Address [address] [facility] [place] [address] Phone [phone] Care Team Providers Care Percussion Welding Machine Operator Name Role Phone Alicia Pfeiffer DO Primary Care Provider + [phone] Encounter Details Date Type Department Care Team Description 08/19/2023 Orders Only [facility] Medicine [address] [place] [address] Alicia Pfeiffer DO [address] [place] [address] [place] [id number] Allergies Active Allergy Reactions Severity Noted Date [...] as of this encounter (statuses as of 08/19/2023) Medications Medication Sig Dispensed Refills Start Date End Date Status VITAMIN B-12 100 MCG PO TABSIndications:DM type 2, goal A1c below 7 1 po daily 30 5 10/27/2007 Active XALATAN 0.005 % OP SOLNIndications:Oth er specified glaucoma one drop each eye in the evening 0 05/07/2011 Active Aspirin 81 MG TabletIndications:T ype 2 diabetes mellitus with hemoglobin A1c goal of less than 8.0% ([facility]) Take 1 Tablet by mouth [...] hemoglobin A1c goal of less than 7.0% ([facility]),Type 2 diabetes mellitus with stage [...] at bedtime 30 mL 3 07/31/2023 Active Omeprazole 20 MG Oral Capsule Delayed Release (PriLOSEC) Take 1 Capsule by mouth in the morning. 1 hour before the first meal of the day. 90 Capsule 1 07/31/2023 Active Ozempic (2 MG/DOSE) 8 MG/3ML Subcutaneous Solution Pen-injector (Semaglutide (2 MG/DOSE)) INJECT 2MG UNDER THE SKIN ONCE WEEKLY 3 mL 1 08/07/2023 Active documented as of this encounter (statuses as of 08/19/2023) Active Problems Problem Noted Date Type 2 [...] as of this encounter (statuses as of 08/19/2023) Resolved Problems Problem Noted Date Resolved Date [...] Per Nephrology HTN, goal below 140/80 04/25/2016 06/16/201 6 Type 2 diabetes mellitus wit h [...] as of this encounter (statuses as of 08/19/2023) Immunizations Name Administration Dates Next Due COVID-19 [...] 09/03/2023 Office Visit Family Medicine Alicia Pfeiffer, [address] [place] [address] Health Maintenance Due Date Last Done Comments COVID-19 Vaccine (3 - Moderna series) 03/29/2021 02/01/2021, 01/04/2021 *BISPHONATE OR OTHER ACCEPTABLE MEDICATION NEEDED FOR OSTEOPOROSIS (REFER TO SMARTSET #1146) 09/18/2022 Depression Screening 02/12/2023 02/12/2022 CKD PHOS USE SMARTSET 65231 05/17/202305/01, 01/29/2021, 06/07/2020, Additional history exists Influenza [...] Additional history exists CKD HGB USE SMARTSET 36299 07/24/202407/24, 02/28/2023, 02/28/2023, Additional history exists DIABETES-EYE EXAM 08/19/2024 08/18/2023, , 05/26/2020, Additional history exists DXA Scan 08/27/2024 08/27/2022, 03/2016, 10/05/2013, Additional history exists DTaP,Tdap,and Td Vaccines (2 - Td or Tdap) 11/12/2028 11/12/2018, 08/12/2008 Pneumococcal Vaccine: 65+ Years Completed 01/16/2015, 06/13/2006, 09/10/1995 Zoster Vaccines Completed 05/19/2020, 01/2020, 08/07/2018, Additional history exists VITAMIN D LEVEL ONCE IN A LIFETIME-USE SMARTSET# 36358 Completed 01/29/2021, 06/07/2020, 07/12/2019, Additional history exists [...] Procedure Name Priority Date/Time Associated Diagnosis Comments DIABETIC EYE EXAM Routine 08/18/2023 documented in this encounter Results * DIABETIC EYE EXAM (08/18/2023) 08/18/2023 Alicia Pfeiffer DO OTHER OUTSIDE LAB (SEE SCANNED REPORT) documented in this encounter Care Teams Percussion Welding Machine Operator Relationship Specialty Start Date End Date Pfeiffer, Alicia Coburn, [address] [place] [address] PCP - General Internal Medicine 08/25/17 documented as of this encounter
--- OUTSIDE RECORDS SUMMARY | 2023-12-03 21:07 | External Medical Summary ---
Author Name Unknown Address Unknown Organization K01:[facility] - [address] [place] [address] Laboratory Report Ordering Provider Test Date Status MELINA MENEZES 09/03/2023 11:08:19 Final Observation Date Value Abnormality Reference (Units ) Status Ferritin 09/03/2023 11:08:19 145 13-150 (ng /mL) Final Postmenopausal women have hi gher ferritin levels than pre-menopausal women. The above reference interval is based on pre-menopausal women. Performing Location [facility]ATORY [facility] - [address] [place] [address]
--- OUTSIDE RECORDS SUMMARY | 2023-12-03 21:08 | External Medical Summary | Summary of Care ---
Author Name Unknown Organization [facility] Address [address] [facility] [address] Phone [phone] Care Team Providers Care Nurse Executive Name Role Phone Alicia Pfeiffer DO Primary Care Provider + [phone] Reason for Visit * Reason Onset Date Comments Advice 06/27/2023 Encounter Details Date Type Department Care Team Description 06/27/2023 Telephone Family Medicine [address] [address] Alciia Pfeiffer DO [address] [place] [address] [place] [address] Advice Allergies Active Allergy Reactions Severity Noted Date [...] as of this encounter (statuses as of 06/30/2023) Medications Medication Sig Dispensed Refills Start Date [...] goal of less than 8.0% ([facility]) Take 1 Tablet by mouth in the [...] long-term current use of insulin ([facility]) inject 26 units subcutaneously at bedtime 30 [...] the day. 90 Capsule 1 02/28/2023 Active HYDROcodone-Acetami nophen 5-325 MG Oral TabletIndications:D egeneration of lumbosacral intervertebral disc Take 1 Tablet by mouth every 8 hours as needed for Pain, Severe. Continued script 30 Tablet 0 04/17/2023 Active BD Pen Needle Mini U/F 31G X 5 MM (Insulin Pen Needle) use 1 PEN NEEDLE to inject MEDICATION subcutaneously 5 times a day 500 Each 3 04/30/2023 Active NovoLOG FlexPen 100 UNIT/ML Subcutaneous Solution Pen-injector (insulin aspart)Indications: Type 2 diabetes mellitus with hemoglobin A1c goal of less than 7.0% ([facility]),Type 2 diabetes mellitus with stage 3b chronic kidney disease, without long-term current use of insulin ([facility]) PER SLIDING SCALE 4 TIMES A DAY (APPOX 40 UNITS PER DAY)DX E11.9 36 mL 1 06/11/2023 Active Ozempic (2 MG/DOSE) 8 MG/3ML Subcutaneous Solution Pen-injector (Semaglutide (2 MG/DOSE)) Inject 2 mg under the skin once a week. 3 mL 1 06/27/2023 Active documented as of this encounter (statuses as of 06/30/2023) Active Problems Problem Noted Date Type 2 [...] as of this encounter (statuses as of 06/30/2023) Resolved Problems Problem Noted Date Resolved Date [...] as of this encounter (statuses as of 06/30/2023) Immunizations Name Administration Dates Next Due COVID-19 mRNA, LNP-s, No Pre serve, 2-Dose Series (Moderna) 02/01/2021,01/04/2021 H1N1 2009 Influenza, IM 10/01/2009 Pneumococcal Conjugate Vacc, 13 Valent (Prevnar) 01/16/2015 Pneumococcal Polysaccharide PPV23 (Pneumovax) 06/13/2006,09/10/1995 Seasonal Influenza, Quadriva lent Hd (Fluzone Hd) 08/14/2022,08/14/2021 Seasonal Influenza, Quadriva lent, No Preserve, 6 Mons & Above, IM 09/21/2018,08/25/2017 Seasonal Influenza, Quadriva lent, No Preserve, Adjuvanted, 65+ Yrs, IM 09/08/2020 Seasonal Influenza, Quadriva lent, No Preserve, IM [...] encounter Miscellaneous Notes * Telephone Encounter - Madelin Ornelas LPN - 06/30/2023 3:28 PM EDT Pt informed of message below and verbalized understanding Provider to address: N/A Reason for Call: Advice Contact: Telephone Call Contact Type: Information Outcome: see above Total Time including non face to face (minutes): 5 * Telephone Encounter - Rosy Renee MD - 06/27/2023 4:59 PM EDT Most of the similar medications are on back order and substitutions can require prior auth or not be covered so would recommend waiting for it to become available again * Telephone Encounter - IRINA Galan - 06/27/2023 11:57 AM EDT Kinga ( grandchild ) called in stated pharmacy told her the Ozempic is on back order . All pharmacies in area are on back order. She doesn't know if there is something else she can take or what pt should do . Please call back to advise documented in this encounter Plan of Treatment Upcoming Encounters Date Type Specialty Care Team Description 06/30/[address] [place] [address] Type 2 diabetes mellitus with hemoglobin A1c goal of less than 8.0% ([facility])* 07/28/[address] [place] [address] 09/03/2023 Office Visit Family Medicine Alicia Pfeiffer[address] [place] [address] Health Maintenance Due Date Last Done Comments COVID-19 Vaccine (3 - Moderna series) 03/29/2021 02/01/2021, 01/04/2021 *BISPHONATE OR OTHER ACCEPTABLE MEDICATION NEEDED FOR OSTEOPOROSIS (REFER TO SMARTSET #1146) 09/18/2022 Depression Screening, Annual for Pts 12 and Over 02/12/2023 02/12/2022 DIABETES-EYE EXAM 02/15/2023 02/15/2022, , 08/09/2019, Additional history exists CKD PHOS USE SMARTSET 89344 05/17/202305/01, 01/29/2021, 06/07/2020, Additional history exists Influenza Vaccine (FLU shot) (#1) 2023 08/14/2022, 08/14/2021, 09/08/2020, Additional history exists GFR 08/30/2023 02/28/2023, 11/01, 05/17/2022, Additional history exists HbA1c 08/30/2023 02/28/2023, 11/01, 08/23/2022, Additional history exists Albumin/Creatinine Ratio 02/29/2024 023, 05/17/2022, 08/07/2021, Additional history exists CKD HGB USE SMARTSET 33101 02/29/202402/28, 02/28/2023, 05/17/2022, Additional history exists DIABETES-FOOT EXAM 02/29/2024 02/28/2023, 0 02/12/2022, 04/10/2021, Additional history exists TSH 02/29/2024 02/28/2023, 0703/2022, 05/17/2022, Additional history exists DXA Scan 08/27/2024 08/27/2022, 03/2016, 10/05/2013, Additional history exists DTaP,Tdap,and Td Vaccines (2 - Td or Tdap) 11/12/2028 11/12/2018, 08/12/2008 Pneumococcal Vaccine: 65+ Years Completed 01/16/2015, 06/13/2006, 09/10/1995 Zoster Vaccines Completed 05/19/2020, 01/2020, 08/07/2018, Additional history exists VITAMIN D LEVEL ONCE IN A LIFETIME-USE SMARTSET# 60306 Completed 01/29/2021, 06/07/2020, 07/12/2019, Additional history exists [...] filedocumented as of this encounter Care Teams Nurse Executive Relationship Specialty Start Date End Date Alicia Pfeiffer, [address] [place] [address] PCP - General Internal Medicine 08/25/17 documented as of this encounter
--- OUTSIDE RECORDS SUMMARY | 2023-12-03 21:08 | External Medical Summary | Summary of Care ---
Author Name Unknown Organization [facility] Address [address] [place] [address] Phone [phone] Care Team Providers Care Cigar Sorter Name Role Phone Clif Summers DO Primary Care Provider [phone] Reason for Referral * Medication Prior Authorization - Pending Review Specialty Diagnoses / Procedures Referred By Contac t Referred To Contact Diagnoses Degeneration of lumbosacral intervertebral disc Clif Summers DO [address] [place] [address] [place] [address] Referral ID Status Reason Start Date Expiration Date V isits Requested Visits Authorized [id number] Pending Review 999 999 Reason for Visit * Reason Onset Date Comments Medication Refill 07/17/2023 Encounter Details Date Type Department Care Team Description 07/17/2023 Refill Family Medicine [address] [place] [address] Clif Summers DO [address] [place] [address] [place] [address] Degeneration of lumbosacral intervertebral disc Allergies Active Allergy Reactions Severity Noted Date [...] as of this encounter (statuses as of 07/18/2023) Medications Medication Sig Dispensed Refills Start Date [...] subcutaneously at bedtime 30 mL 5 2 Active hydroCHLOROthiazide 12.5 MG Oral Capsule (Hydrodiuril)Indica [...] daily DxE11.9 100 Strip 3 3 Active Omeprazole 20 MG Oral Capsule Delayed Release (PriLOSEC) Take 1 Capsule by mouth in the morning. 1 hour before the first meal of the day. 90 Capsule 1 3 Active BD Pen Needle Mini U/F [...] Continued script 30 Tablet 0 3 Active HYDROcodone-Acetami nophen 5-325 MG Oral TabletIndications:D egeneration of lumbosacral intervertebral disc Take 1 Tablet by mouth every 8 hours as needed for Pain, Severe. Continued script 30 Tablet 0 3 07/17/20 23 Discontinu ed(Refill) documented as of this encounter (statuses as of 07/18/2023) Active Problems Problem Noted Date Type 2 [...] as of this encounter (statuses as of 07/18/2023) Resolved Problems Problem Noted Date Resolved Date [...] as of this encounter (statuses as of 07/18/2023) Immunizations Name Administration Dates Next Due COVID-19 [...] Telephone Encounter - Clif Summers DO - 07/18/2023 1:05 PM EDTSigned Prescriptions: Disp Refills HYDROcodone-Acetaminophen 5-325 MG Oral Ta*30 Tab*0 Sig: Take 1 Tablet by mouth every 8 hours as needed for Pain, Severe. Continued script Authorizing Provider: CLIF SUMMERS * Telephone Encounter - Falguni Sharma [facility] - 07/18/2023 9:31 AM EDTPending Prescriptions: Disp Refills HYDROcodone-Acetaminophen 5-325 MG Oral Ta*30 Tab*0 Sig: Take 1 Tablet by mouth every 8 hours as needed for Pain, Severe. Continued script * Telephone Encounter - Falguni Sharma [facility] - 07/18/2023 9:29 AM EDT I have reviewed the patients controlled substance dispensing history in the Prescription Drug Monitoring Program in compliance with the [facility] regulations before prescribing a controlled substance. PDMP checked on 07/18/2023. Pending Prescriptions: Disp Refills HYDROcodone-Acetaminophen 5-325 MG Oral T*30 Tab*0 Sig: Take 1 Tablet by mouth every 8 hours as needed for Pain, Severe. Continued script Last Visit: 02/28/2023 (in office), Visit date not found (telemedicine) Next Visit: 09/03/2023 Date medication was last filled: 04/18/23 Date medication is due for refill: 04/27/23 Pharmacy: [address] Is this request for a controlled [...] Results Review. Please approve if appropriate. Thanks, Falguni Sharma Clinical Pharmacist [facility] ([facility]) (Formerly Telepharmacy) [phone] 07/18/2023, 9:30 AM * Telephone Encounter - Sarina Adams CPhT - 07/17/2023 12:33 PM EDT Did you pend patient's preferred pharmacy and medication before forwarding?yes Pharmacy: [facility] Pending Prescriptions: Disp Refills HYDROcodone-Acetaminophen 5-325 MG Oral T*30 Tab*0 Sig: Take 1 Tablet by mouth every 8 hours as needed for Pain, Severe. Continued script Last Visit: 02/28/2023 (in office), Visit date not found (telemedicine) Next Visit: 09/03/2023 If no future appointments scheduled, and last appointment is greater than a year ago, please schedule patient for a follow-up appointment Last date the medication was ordered: 04/17/2023 Is this request for a controlled substance?Yes, What was the last refill date 04/17/2023 w/ [id number] and dosage 5-325mg and Urine Drug Screen was completed Urine Drug Screen: Results for orders placed [...] Results Component Value Date/Time CREAT 1.6 (H) 02/28/2023 01:07 PM CREAT 1.6 (H) 11/08/2020 11:46 AM CREAT 0.5 (L) 03/16/1997 02:55 PM POTASSIUM 5.9 (H) 02/28/2023 01:07 PM POTASSIUM 4.8 11/08/2020 11:46 AM POTASSIUM 4.4 [...] Encounters Date Type Specialty Care Team Description 07/28/2023 Pharmacy [address] [place] [address] 09/03/2023 Office Visit Family Medicine Clif Summers, [address] [place] [address] Health Maintenance Due Date Last Done Comments COVID-19 Vaccine (3 - Moderna series) 03/29/2021 02/01/2021, 01/04/2021 *BISPHONATE OR OTHER ACCEPTABLE MEDICATION NEEDED FOR OSTEOPOROSIS (REFER TO SMARTSET #1146) 09/18/2022 Depression Screening, Annual for Pts 12 and Over 02/12/2023 02/12/2022 DIABETES-EYE EXAM 02/15/2023 02/15/2022, , 08/09/2019, Additional history exists CKD PHOS USE SMARTSET 89227 05/17/202305/01, 01/29/2021, 06/07/2020, Additional history exists Influenza Vaccine (FLU shot) (#1) 2023 08/14/2022, 08/14/2021, 09/08/2020, Additional history exists GFR 08/30/2023 02/28/2023, 11/01, 05/17/2022, Additional history exists HbA1c 08/30/2023 02/28/2023, 11/01, 08/23/2022, Additional history exists Albumin/Creatinine Ratio 02/29/2024 023, 05/17/2022, 08/07/2021, Additional history exists CKD HGB USE SMARTSET 78740 02/29/202402/28, 02/28/2023, 05/17/2022, Additional history exists DIABETES-FOOT EXAM 02/29/2024 02/28/2023, 0 02/12/2022, 04/10/2021, Additional history exists TSH 02/29/2024 02/28/2023, 05/31, 05/17/2022, Additional history exists DXA Scan 08/27/2024 08/27/2022, 0 03/2016, 10/05/2013, Additional history exists DTaP,Tdap,and Td Vaccines (2 - Td or Tdap) 11/12/2028 11/12/2018, 08/12/2008 Pneumococcal Vaccine: 65+ Years Completed 01/16/2015, 06/13/2006, 09/10/1995 Zoster Vaccines Completed 05/19/2020, 0 01/2020, 08/07/2018, Additional history exists VITAMIN D LEVEL ONCE IN A LIFETIME-USE SMARTSET# 28401 Completed 01/29/2021, 06/07/2020, 07/12/2019, Additional history exists [...] disc documented in this encounter Care Teams Cigar Sorter Relationship Specialty Start Date End Date Clif Summers, [address] [place] [address] PCP - General Internal Medicine 08/25/17 documented as of this encounter
--- OUTSIDE RECORDS SUMMARY | 2023-12-03 21:08 | External Medical Summary | Summary of Care ---
Author Name Unknown Organization [facility] Address [address] [facility] [place] [address] Phone [phone] Care Team Providers Care Supervisor Briar Shop Name Role Phone Pfeiffer, Alicia Irish HERRERA Primary Care Provider Reason for Visit * Reason Comments Appointment Encounter Details Date Type Department Care Team Description 06/30/2023 Pharmacy Pharmacy, [address] [place] [address] [place] [address] Type 2 diabetes mellitus with hemoglobin A1c goal of less than 8.0% ([facility])* Allergies Active Allergy Reactions Severity Noted Date [...] than 8.0% ([facility]) Take 1 Tablet by mouth in the [...] of insulin ([facility]) inject 26 units subcutaneously at bedtime 30 [...] than 7.0% ([facility]),Type 2 diabetes mellitus with stage 3b chronic kidney disease, without long-term current use of insulin ([facility]) PER SLIDING SCALE 4 TIMES A DAY [...] of this encounter Progress Notes * MAYNOR Cai - 06/30/2023 8:21 AM EDT Patient Phone Numbers Sent [facility] message to schedule [facility] appointment for diabetes management. [facility] message sent --yes Clinic will follow up again in 4 week(s). [Attempt # 3] Thank you, Paige Vázquez Roofing Technician [facility] ([facility]) (formerly Telepharmacy) [phone] 06/30/2023,8:21 AM documented in this encounter Plan of Treatment Upcoming Encounters Date Type Specialty Care Team Description 07/28/2023 Pharmacy Pharmacy [address] [place] [address] 09/03/2023 Office Visit Family Medicine Alicia Pfeiffer, [address] [place] [address] Health Maintenance Due Date Last Done Comments COVID-19 Vaccine (3 - Moderna series) 03/29/2021 02/01/2021, 01/04/2021 *BISPHONATE OR OTHER ACCEPTABLE MEDICATION NEEDED FOR OSTEOPOROSIS (REFER TO SMARTSET #1146) 09/18/2022 Depression Screening, Annual for Pts 12 and Over 02/12/2023 02/12/2022 DIABETES-EYE EXAM 02/15/2023 02/15/2022, , 08/09/2019, Additional history exists CKD PHOS USE SMARTSET 25354 05/17/202305/01, 01/29/2021, 06/07/2020, Additional history exists Influenza Vaccine (FLU shot) (#1) 2023 08/14/2022, 08/14/2021, 09/08/2020, Additional history exists GFR 08/30/2023 02/28/2023, 11/01, 05/17/2022, Additional history exists HbA1c 08/30/2023 02/28/2023, 11/01, 08/23/2022, Additional history exists Albumin/Creatinine Ratio 02/29/2024 023, 05/17/2022, 08/07/2021, Additional history exists CKD HGB USE SMARTSET 79146 02/29/202402/28, 02/28/2023, 05/17/2022, Additional history exists DIABETES-FOOT [...] D LEVEL ONCE IN A LIFETIME-USE SMARTSET# 78272 Completed 01/29/2021, 06/07/2020, 07/12/2019, Additional history exists [...] Primary documented in this encounter Care Teams Supervisor Briar Shop Relationship Specialty Start Date End Date Alicia Pfeiffer[address] [place] [address] PCP - General Internal Medicine 08/25/17 documented as of this encounter
--- OUTSIDE RECORDS SUMMARY | 2023-12-03 21:08 | External Medical Summary | Summary of Care ---
Author Name Unknown Organization [facility] Address [address] [facility] [place] [address] Phone [phone] Care Team Providers Care Metallurgical Tester Name Role Phone Alicia Pfeiffer DO Primary Care Provider + [phone] Encounter Details Date Type Department Care Team Description 07/28/2023 Orders Only [facility] Medicine [address] [place] [address] Alicia Pfeiffer DO [address] [place] [address] [place] [address] Allergies Active Allergy Reactions Severity Noted Date [...] goal of less than 8.0% ([facility]) Take 1 Tablet by mouth in the morning. 30 Tab 0 08/14/2018 Active Tylenol 8 Hour Arthritis Pain 650 MG Oral Tablet Extended Release Take 1 Tablet by mouth every 8 hours as needed. 0 Active Insulin Glargine Solostar 100 UNIT/ML Subcutaneous Solution Pen-injector (Michaelaglwisam Shah)Indications :Type 2 diabetes mellitus with stage 3 chronic kidney disease, without long-term current use of insulin ([facility]) inject 26 units subcutaneously at bedtime [...] morning. 90 Tablet 3 11/21/2022 Active OneTouch Verraman In Vitro Strip (Glucose Blood) Use to [...] goal of less than 7.0% ([facility]),Type 2 diabetes mellitus with stage 3b chronic kidney disease, without long-term current use of insulin ([facility]) PER SLIDING SCALE 4 TIMES A [...] Type Specialty Care Team Description 07/28/2023 Pharmacy [facility], [address] [place] [address] 09/03/2023 Office Visit Family Medicine Alicia Pfeiffer[address] [place] [address] Health Maintenance Due Date Last Done Comments COVID-19 Vaccine (3 - Moderna series) 03/29/2021 02/01/2021, 01/04/2021 *BISPHONATE OR OTHER ACCEPTABLE MEDICATION NEEDED FOR OSTEOPOROSIS (REFER TO SMARTSET #1146) 09/18/2022 Depression Screening, Annual for Pts 12 and Over 02/12/2023 02/12/2022 DIABETES-EYE EXAM 02/15/2023 02/15/2022, , 08/09/2019, Additional history exists CKD PHOS USE SMARTSET 36481 05/17/202305/01, 01/29/2021, 06/07/2020, Additional history exists Influenza Vaccine (FLU shot) (#1) 2023 08/14/2022, 08/14/2021, 09/08/2020, Additional history exists GFR 08/30/2023 07/24/2023, 01/31, 11/21/2022, Additional history exists HbA1c 08/30/2023 02/28/2023, 11/01, 08/23/2022, Additional history exists Albumin/Creatinine Ratio 02/29/2024 023, 05/17/2022, 08/07/2021, Additional history exists CKD HGB USE SMARTSET 83247 02/29/202407/24, 02/28/2023, 02/28/2023, Additional history exists DIABETES-FOOT EXAM 02/29/2024 02/28/2023, [...] D LEVEL ONCE IN A LIFETIME-USE SMARTSET# 85434 Completed 01/29/2021, 06/07/2020, 07/12/2019, Additional history exists [...] Procedure Name Priority Date/Time Associated Diagnosis Comments CHEMISTRY-OUTSIDE Routine 07/24/2023 documented in this encounter Results * (ABNORMAL) CHEMISTRY-OUTSIDE (07/24/2023) Not all results display below - see scan for full detail SCAN INCLUDES: CBCD, CMP, TROPONIN OUTSIDE LAB (SEE SCANNED REPORT) CREATININE-OUTSI DE LAB 1.48(A) 0.55 - 1.02 MG/DL OUTSIDE LAB (SEE SCANNED REPORT) EGFR-OUTSIDE LAB 35(A) >60 ML/MIN OUTSIDE LAB (SEE SCANNED REPORT) POTASSIUM-OUTSID E LAB 4.8 3.5 - 5.1 MMOL/L OUTSIDE LAB (SEE SCANNED REPORT) GLUCOSE-OUTSIDE LAB 162(A) 70 - 110 MG/DL OUTSIDE LAB (SEE SCANNED REPORT) HOURS FASTING OUTSID E LAB (SEE SCANNED REPORT) TRIGLYCERIDES-OU TSIDE LAB OUTSIDE LAB (SEE SCANNED REPORT) CHOLESTEROL-OUTS BRIANA LAB OUTSIDE LAB (SEE SCANNED REPORT) HDL-OUTSIDE LAB OUTS BRIANA LAB (SEE SCANNED REPORT) CHOL/HDL RATIO-OUTSIDE LAB OUTSIDE LAB (SEE SCANNED REPORT) LDL (CALCULATED)-OUT SIDE LAB OUTSIDE LAB (SEE SCANNED REPORT) LDL (DIRECT MEASURE)-OUTSIDE LAB OUTSIDE LAB (SEE SCANNED REPORT) HEMOGLOBIN, D5D-DRUYUDC LAB OUTSIDE LAB (SEE SCANNED REPORT) PHOSPHORUS-OUTSI DE LAB OUTSIDE LAB (SEE SCANNED REPORT) PTH-OUTSIDE LAB OUTS BRIANA LAB (SEE SCANNED REPORT) MICROALBUMIN RATIO-OUTSIDE LAB OUTSIDE LAB (SEE SCANNED REPORT) PROTEIN, UA-OUTSIDE LAB OUTSIDE LAB (SEE SCANNED REPORT) HEMOGLOBIN-OUTSI DE LAB 11.8(A) 12.0 - 16.0 GM/DL OUTSIDE LAB (SEE SCANNED REPORT) 07/24/2023 Ridge Estrada MD LABORATORY OUTSIDE LAB (SEE SCANNED REPORT) documented in this encounter Care Teams Metallurgical Tester Relationship Specialty Start Date End Date Alicia Pfeiffer, [address] [place] [address] PCP - General Internal Medicine 08/25/17 documented as of this encounter
--- OUTSIDE RECORDS SUMMARY | 2023-12-03 21:08 | External Medical Summary | Summary of Care ---
Author Name Unknown Organization [facility] Address [address] [facility] [place] [address] Phone [phone] Care Team Providers Care Circuit Recorder Name Role Phone Alicia Pfeiffer Primary Care Provider Encounter Details Date Type Department Care Team Description 07/24/2023 Result Scan Unspecified Department <No scans attached> Allergies Active Allergy Reactions Severity Noted Date [...] goal of less than 7.0% ([facility]),Type 2 diabetes mellitus with stage 3b chronic kidney disease, without long-term current use of insulin ([facility]) PER SLIDING SCALE 4 TIMES [...] term PVD (PERIPHERAL VASCULAR DISEASE) DUE DIABETES (250.7=) 08/27/2011 06/11/2019 ANGIOEDEMA 06/07/2011 [...] /min) 01/13/2008 06/10/2019 Overview: Based on labs 9-7-07 BENIGN HYPERTENSION 11/10/2003 10/06/2009 Overview: Modified per [...] Specialty Care Team Description 07/28/2023 Pharmacy Pharmacy [place], [address] [place] [address] 09/03/2023 Office Visit Family Medicine Alicia Pfeiffer, [address] [place] [address] Health Maintenance Due Date Last Done Comments COVID-19 Vaccine (3 - Moderna series) 03/29/2021 02/01/2021, 01/04/2021 *BISPHONATE OR OTHER ACCEPTABLE MEDICATION NEEDED FOR OSTEOPOROSIS (REFER TO SMARTSET #1146) 09/18/2022 Depression Screening, Annual for Pts 12 and Over 02/12/2023 02/12/2022 DIABETES-EYE EXAM 02/15/2023 02/15/2022, , 08/09/2019, Additional history exists CKD PHOS USE SMARTSET 47281 05/17/202305/01, 01/29/2021, 06/07/2020, Additional history exists Influenza Vaccine (FLU shot) (#1) 2023 08/14/2022, 08/14/2021, 09/08/2020, Additional history exists GFR 08/30/2023 07/24/2023, 01/31, 11/21/2022, Additional history exists HbA1c 08/30/2023 02/28/2023, 11/01, 08/23/2022, Additional history exists Albumin/Creatinine Ratio 02/29/2024 023, 05/17/2022, 08/07/2021, Additional history exists CKD HGB USE SMARTSET 95897 02/29/202407/24, 02/28/2023, 02/28/2023, Additional history exists DIABETES-FOOT [...] D LEVEL ONCE IN A LIFETIME-USE SMARTSET# 09222 Completed 01/29/2021, 06/07/2020, 07/12/2019, Additional history exists [...] Procedure Name Priority Date/Time Associated Diagnosis Comments RADIOLOGY SCANNED RESULT 07/24/2023 RADIOLOGY SCANNED RESULT 07/24/2023 documented in this encounter Results * RADIOLOGY SCANNED RESULT (07/24/2023) 07/24/2023 No Physician Data Unknown DIAGNOSTIC RAD IOLOGY SERVICES * RADIOLOGY SCANNED RESULT (07/24/2023) 07/24/2023 No Physician Data Unknown DIAGNOSTIC RAD IOLOGY SERVICES documented in this encounter Care Teams Circuit Recorder Relationship Specialty Start Date End Date Alicia Pfeiffer[address] [place] [address] PCP - General Internal Medicine 08/25/17 documented as of this encounter
--- OUTSIDE RECORDS SUMMARY | 2023-12-03 21:08 | External Medical Summary | Summary of Care ---
Author Name Unknown Organization [facility] Address [address] [place] [facility] [place] [address] Phone [phone] Care Team Providers Care Stove Refinisher Name Role Phone Alicia Pfeiffer DO Primary Care Provider + [phone] Reason for Visit * Reason Onset Date Comments Medication Refill 07/04/2023 Encounter Details Date Type Department Care Team Description 07/04/2023 Refill Family Medicine [address] [address] Alicia Pfeiffer DO [address] [place] [address] [place] [id number] Allergies Active Allergy Reactions Severity Noted Date [...] as of this encounter (statuses as of 07/04/2023) Medications Medication Sig Dispensed Refills Start Date End Date Status VITAMIN B-12 100 MCG PO TABSIndications:DM type 2, goal A1c below 7 1 po daily 30 5 10/27/2007 Active XALATAN 0.005 % OP SOLNIndications:Oth er specified glaucoma one drop each eye in the evening 0 05/07/2011 Active Aspirin 81 MG TabletIndications:T ype 2 diabetes mellitus with hemoglobin A1c goal of less than 8.0% ([facility]) Take 1 Tablet by mouth in the morning. 30 Tab 0 08/14/2018 Active Tylenol 8 Hour Arthritis Pain 650 MG Oral Tablet Extended Release Take 1 Tablet by mouth every 8 hours as needed. 0 Active Insulin Glargine Solostar 100 UNIT/ML Subcutaneous Solution Pen-injector (Basaglar KwikBhavik)Indications :Type 2 diabetes mellitus with stage 3 chronic kidney disease, without long-term current use of insulin ([facility]) inject 26 units subcutaneously at bedtime [...] hemoglobin A1c goal of less than 7.0% ([facility]),Type 2 diabetes mellitus with stage 3b chronic kidney disease, without long-term current use of insulin ([facility]) PER SLIDING SCALE 4 TIMES A DAY (APPOX 40 UNITS PER DAY)DX E11.9 36 mL 1 06/11/2023 Active Ozempic (2 MG/DOSE) 8 MG/3ML Subcutaneous Solution Pen-injector (Semaglutide (2 MG/DOSE)) Inject 2 mg under the skin once a week. 3 mL 1 06/27/2023 Active documented as of this encounter (statuses as of 07/04/2023) Active Problems Problem Noted Date Type 2 [...] as of this encounter (statuses as of 07/04/2023) Resolved Problems Problem Noted Date Resolved Date [...] as of this encounter (statuses as of 07/04/2023) Immunizations Name Administration Dates Next Due COVID-19 [...] Miscellaneous Notes * Telephone Encounter - Madelin Aquino LPN - 07/04/2023 1:14 PM EDTRefused Prescriptions: Disp Refills Escitalopram Oxalate 10 MG Oral Tablet (Le*90 Tab*3 Sig: Take 1Tablet by mouth in the morning.Refused By: Hellen AQUINO for Refusal: Too soon * Telephone Encounter - Madelin Aquino LPN - 07/04/2023 1:13 PM EDT Too soon Pt given 90 tabs with 3 refills on 10/16/22 - [facility] Provider to address: N/A Reason for Call: Medication Refill Contact: Telephone Call Contact Type: Medication Outcome: see above Total Time including non face to face (minutes): 10 * Telephone Encounter - Temitope Fox - 07/04/2023 12:37 PM EDT Did you pend patient's preferred pharmacy and medication before forwarding?yes Pharmacy: [facility]-[address] Pending Prescriptions: Disp Refills Escitalopram Oxalate 10 MG Oral Tablet (L*90 Tab*3 Sig: Take 1 Tablet by mouth in the morning. Last Visit: 02/28/2023 (in office), Visit date not found (telemedicine) Next Visit: 09/03/2023 If no future appointments scheduled, and last appointment is greater than a year ago, please schedule patient for a follow-up appointment Last date the medication was ordered: 10/16/2022 Is this request for a controlled substance?No [...] Specialty Care Team Description 07/28/2023 Pharmacy Pharmacy [place], [address] [place] [address] 09/03/2023 Office Visit Family Medicine Alicia Pfeiffer, [address] [place] [address] Health Maintenance Due Date Last Done Comments COVID-19 Vaccine (3 - Moderna series) 03/29/2021 02/01/2021, 01/04/2021 *BISPHONATE OR OTHER ACCEPTABLE MEDICATION NEEDED FOR OSTEOPOROSIS (REFER TO SMARTSET #1146) 09/18/2022 Depression Screening, Annual for Pts 12 and Over 02/12/2023 02/12/2022 DIABETES-EYE EXAM 02/15/2023 02/15/2022, , 08/09/2019, Additional history exists CKD PHOS USE SMARTSET 52517 05/17/202305/01, 01/29/2021, 06/07/2020, Additional history exists Influenza Vaccine (FLU shot) (#1) 2023 08/14/2022, 08/14/2021, 09/08/2020, Additional history exists GFR 08/30/2023 02/28/2023, 11/01, 05/17/2022, Additional history exists HbA1c 08/30/2023 02/28/2023, 11/01, 08/23/2022, Additional history exists Albumin/Creatinine Ratio 02/29/2024 023, 05/17/2022, 08/07/2021, Additional history exists CKD HGB USE SMARTSET 93474 02/29/202402/28, 02/28/2023, 05/17/2022, Additional history exists DIABETES-FOOT [...] D LEVEL ONCE IN A LIFETIME-USE SMARTSET# 81999 Completed 01/29/2021, 06/07/2020, 07/12/2019, Additional history exists [...] filedocumented as of this encounter Care Teams Stove Refinisher Relationship Specialty Start Date End Date Alicia Pfeiffer, [address] [place] [address] PCP - General Internal Medicine 08/25/17 documented as of this encounter
--- OUTSIDE RECORDS SUMMARY | 2023-12-03 21:08 | External Medical Summary | Summary of Care ---
Author Name Unknown Organization [facility] Address [address] [place] [facility] [place] [address] Phone [phone] Care Team Providers Care Preparole Counseling Aide Name Role Phone Alicia Pfeiffer DO Primary Care Provider + [phone] Reason for Visit * Reason Onset Date Comments Medication Refill 07/22/2023 Encounter Details Date Type Department Care Team Description 07/22/2023 Refill Family Medicine [address] [address] Alicia Pfeiffer DO [address] [place] [address] [place] [address] Degeneration of lumbosacral intervertebral disc Allergies Active [...] as of this encounter (statuses as of 07/22/2023) Medications Medication Sig Dispensed Refills Start Date [...] goal of less than 8.0% ([facility]) Take 1 Tablet by mouth [...] long-term current use of insulin ([facility]) inject 26 units subcutaneously at [...] goal of less than 7.0% ([facility]),Type 2 diabetes mellitus with stage 3b chronic kidney disease, without long-term current use of insulin ([facility]) PER SLIDING SCALE 4 TIMES [...] as of this encounter (statuses as of 07/22/2023) Active Problems Problem Noted Date Type 2 [...] as of this encounter (statuses as of 07/22/2023) Resolved Problems Problem Noted Date Resolved Date [...] as of this encounter (statuses as of 07/22/2023) Immunizations Name Administration Dates Next Due COVID-19 [...] encounter Miscellaneous Notes * Telephone Encounter - Kinga Fitch LPN - 07/22/2023 10:28 AM EDT Rx sent 07/18/23. * Telephone Encounter - Temitope Fox - 07/22/2023 9:55 AM EDT Did you pend patient's preferred pharmacy and medication before forwarding?no Pharmacy: [facility] Pending Prescriptions: Disp Refills HYDROcodone-Acetaminophen 5-325 [...] 07/18/2023 Is this request for a controlled substance?No [...] Specialty Care Team Description 07/28/2023 Pharmacy Pharmacy [place], [address] [place] [address] 09/03/2023 Office Visit Family Medicine Alicia Pfeiffer, [address] [place] [address] Health Maintenance Due Date Last Done Comments COVID-19 Vaccine (3 - Moderna series) 03/29/2021 02/01/2021, 01/04/2021 *BISPHONATE OR OTHER ACCEPTABLE MEDICATION NEEDED FOR OSTEOPOROSIS (REFER TO SMARTSET #1146) 09/18/2022 Depression Screening, Annual for Pts 12 and Over 02/12/2023 02/12/2022 DIABETES-EYE EXAM 02/15/2023 02/15/2022, , 08/09/2019, Additional history exists CKD PHOS USE SMARTSET 91097 05/17/202305/01, 01/29/2021, 06/07/2020, Additional history exists Influenza Vaccine (FLU shot) (#1) 2023 08/14/2022, 08/14/2021, 09/08/2020, Additional history exists GFR 08/30/2023 02/28/2023, 11/01, 05/17/2022, Additional history exists HbA1c 08/30/2023 02/28/2023, 11/01, 08/23/2022, Additional history exists Albumin/Creatinine Ratio 02/29/2024 023, 05/17/2022, 08/07/2021, Additional history exists CKD HGB USE SMARTSET 08408 02/29/202402/28, 02/28/2023, 05/17/2022, Additional history exists DIABETES-FOOT [...] D LEVEL ONCE IN A LIFETIME-USE SMARTSET# 93998 Completed 01/29/2021, 06/07/2020, 07/12/2019, Additional history exists [...] disc documented in this encounter Care Teams Preparole Counseling Aide Relationship Specialty Start Date End Date Alicia Pfeiffer[address] [place] [address] PCP - General Internal Medicine 08/25/17 documented as of this encounter
--- OUTSIDE RECORDS SUMMARY | 2023-12-03 21:09 | External Medical Summary | Summary of Care ---
Author Name Unknown Organization [facility] [address] [facility] [address] Phone [phone] Care Team Providers Care Cable Systems Installer Name Role Phone Alicia Pfeiffer DO Primary Care Provider + [phone] Reason for Visit * Reason Onset Date Comments Order Request 06/10/2023 Encounter Details Date Type Department Care Team Description 06/10/[address] [address] Alicia Pfeiffer DO [address] [place] [address] [place] [address] Order Request Allergies Active Allergy Reactions Severity Noted [...] as of this encounter (statuses as of 06/11/2023) Medications Medication Sig Dispensed Refills Start Date [...] A1c goal of less than 8.0% ([facility]) Take 1 Tablet by [...] without long-term current use of insulin ([facility]) inject 26 units subcutaneously [...] a day 500 Each 3 04/30/2023 Active Ozempic (2 MG/DOSE) 8 MG/3ML Subcutaneous Solution Pen-injector (Semaglutide (2 MG/DOSE)) Inject 2 mg under the skin once a week. 3 mL 1 05/28/2023 Active documented as of this encounter (statuses as of 06/11/2023) Active Problems Problem Noted Date Type 2 [...] as of this encounter (statuses as of 06/11/2023) Resolved Problems Problem Noted Date Resolved Date [...] as of this encounter (statuses as of 06/11/2023) Immunizations Name Administration Dates Next Due COVID-19 [...] encounter Miscellaneous Notes * Telephone Encounter - Francesca Rodriguez RN - 06/11/2023 10:30 AM EDT This was sent 04-04-23, I will send it to them again Provider to address: na Reason for Call: Order Request Contact: Telephone Call Contact Type: Orders Outcome: see above Total Time including non face to face (minutes): 10 * Telephone Encounter - IRINA Rebolledo - 06/10/2023 12:41 PM EDT An order was requested for this patient. Name of Requesting Provider: Patient's granddaughter. Order Requested: [employer]. Diagnosis/Reason for Request: Patient's granddaughter states that the patient needs a refill of thesensors. Patient's granddaughter states that [facility] was supposed to fax a request for the order for the supplies. If order request is for Mammogram: Is the patient having any breast symptoms? N/A Is there a chance of ? N/A Has the patient had any breast problems in the past? NA Does the order need to be faxed somewhere? If so, where?: Yes, [employer]. Fax Number, if applicable: Call Back Number: [phone] If the caller is not a current patient, please advise the patient to call their current PCP to havethe order's prior to being seen in our office. The patient was informed that our providers would not order anything (medication, labs, etc.) prior to being seen. documented in this encounter Plan of Treatment Upcoming Encounters Date Type Specialty Care Team Description 06/30/20[address] [place] [address] 09/03/2023 Office Visit Family Medicine Alicia Pfeiffer, [address] [place] [address] Health Maintenance Due Date Last Done Comments COVID-19 Vaccine (3 - Moderna series) 03/29/2021 02/01/2021, 01/04/2021 *BISPHONATE OR OTHER ACCEPTABLE MEDICATION NEEDED FOR OSTEOPOROSIS (REFER TO SMARTSET #1146) 09/18/2022 Depression Screening, Annual for Pts 12 and Over 02/12/2023 02/12/2022 DIABETES-EYE EXAM 02/15/2023 02/15/2022, , 08/09/2019, Additional history exists CKD PHOS USE SMARTSET 45631 05/17/202305/01, 01/29/2021, 06/07/2020, Additional history exists Influenza Vaccine (FLU shot) (#1) 2023 08/14/2022, 08/14/2021, 09/08/2020, Additional history exists GFR 08/30/2023 02/28/2023, 11/01, 05/17/2022, Additional history exists HbA1c 08/30/2023 02/28/2023, 11/01, 08/23/2022, Additional history exists Albumin/Creatinine Ratio 02/29/2024 023, 05/17/2022, 08/07/2021, Additional history exists CKD HGB USE SMARTSET 77439 02/29/202402/28, 02/28/2023, 05/17/2022, Additional history exists DIABETES-FOOT [...] D LEVEL ONCE IN A LIFETIME-USE SMARTSET# 96299 Completed 01/29/2021, 06/07/2020, 07/12/2019, Additional history exists [...] filedocumented as of this encounter Care Teams Cable Systems Installer Relationship Specialty Start Date End Date Alicia Pfeiffer, [address] [place] [address] PCP - General Internal Medicine 08/25/17 documented as of this encounter
--- OUTSIDE RECORDS SUMMARY | 2023-12-03 21:09 | External Medical Summary | Summary of Care ---
Author Name Unknown Organization [facility] [address] [facility] [address] Phone [phone] Care Team Providers Care Software Applications Engineer Name Role Phone Alicia Pfeiffer DO Primary Care Provider + [phone] Reason for Visit * Reason Onset Date Comments Order Request 06/10/2023 Encounter Details Date Type Department Care Team Description 06/10/[address] [address] Alicia Pfeiffer DO [address] [place] [address] [place] [address] Order Request Allergies Active [...] as of this encounter (statuses as of 06/16/2023) Medications Medication Sig Dispensed Refills Start Date End Date Status VITAMIN B-12 100 MCG PO TABSIndications:DM type 2, goal A1c below 7 1 po daily 30 5 10/27/2007 Active XALATAN 0.005 % OP SOLNIndications:Oth er specified glaucoma one drop each eye in the evening 0 05/07/2011 Active Aspirin 81 MG TabletIndications:T ype 2 diabetes mellitus with hemoglobin A1c goal of less than 8.0% ([facility]) Take 1 Tablet by mouth in the morning. 30 Tab 0 08/14/2018 Active Tylenol 8 Hour Arthritis Pain 650 MG Oral Tablet Extended Release Take 1 Tablet by mouth every 8 hours as needed. 0 Active Insulin Glargine Solostar 100 UNIT/ML Subcutaneous Solution Pen-injector (Basaglar KwikBhavik)Indications :Type 2 diabetes mellitus with stage 3 chronic kidney disease, without long-term current use of insulin ([facility]) inject 26 units subcutaneously at bedtime [...] as of this encounter (statuses as of 06/16/2023) Active Problems Problem Noted Date Type 2 [...] as of this encounter (statuses as of 06/16/2023) Resolved Problems Problem Noted Date Resolved Date [...] as of this encounter (statuses as of 06/16/2023) Immunizations Name Administration Dates Next Due COVID-19 [...] encounter Miscellaneous Notes * Telephone Encounter - Dolly Adrian LPN - 06/16/2023 12:08 PM EDT Provider to address: Alicia Pfeiffer DO Reason for Call: Order Request Contact: Telephone Call Contact Type: Information Outcome: Rosmery calling from [facility] stating that the form that was sent is unable to be processed. The name NPI number at the top is not corrected. Once corrected it needs initialed and dated along with Alicia Pfeiffer's name being hand written in. Also NPI at the bottom on the page needs initialed and dated. She stated that Alicia Pfeiffer needs to be the one to initial and date, then please fax back to [facility]. Total Time including non face to face (minutes): 5 * Telephone Encounter - Francesca Rodriguez RN [...] refill of thesensors. Patient's granddaughter states that [employer] was supposed to fax a request for the order for the supplies. If order request is for Mammogram: Is the patient having any breast symptoms? N/A Is there a chance of ? N/A Has the patient had any breast problems in the past? NA Does the order need to be faxed somewhere? If so, where?: Yes, [employer]. Fax Number, if applicable: Call Back Number: [phone] If the caller is not a current patient, please advise the patient to call their current PCP to havethe order's prior to being seen in our office. The patient was informed that our providers would not order anything (medication, labs, etc.) prior to being seen. documented in this encounter Plan of Treatment Upcoming Encounters Date Type Specialty Care Team Description 06/30/2023 Pharmacy Pharmacy [address] [place] [address] 09/03/2023 Office Visit Family Medicine Alicia Pfeiffer, [address] [place] [address] Health Maintenance Due Date Last Done Comments COVID-19 Vaccine (3 - Moderna series) 03/29/2021 02/01/2021, 01/04/2021 *BISPHONATE OR OTHER ACCEPTABLE MEDICATION NEEDED FOR OSTEOPOROSIS (REFER TO SMARTSET #1146) 09/18/2022 Depression Screening, Annual for Pts 12 and Over 02/12/2023 02/12/2022 DIABETES-EYE EXAM 02/15/2023 02/15/2022, , 08/09/2019, Additional history exists CKD PHOS USE SMARTSET 03529 05/17/202305/01, 01/29/2021, 06/07/2020, Additional history exists Influenza Vaccine (FLU shot) (#1) 2023 08/14/2022, 08/14/2021, 09/08/2020, Additional history exists GFR 08/30/2023 02/28/2023, 11/01, 05/17/2022, Additional history exists HbA1c 08/30/2023 02/28/2023, 11/01, 08/23/2022, Additional history exists Albumin/Creatinine Ratio 02/29/2024 023, 05/17/2022, 08/07/2021, Additional history exists CKD HGB USE SMARTSET 71700 02/29/202402/28, 02/28/2023, 05/17/2022, Additional history exists DIABETES-FOOT [...] D LEVEL ONCE IN A LIFETIME-USE SMARTSET# [id number] Completed 01/29/2021, 06/07/2020, 07/12/2019, Additional history exists [...] filedocumented as of this encounter Care Teams Software Applications Engineer Relationship Specialty Start Date End Date Alicia Pfeiffer, [address] [place] [address] PCP - General Internal Medicine 08/25/17 documented as of this encounter
--- OUTSIDE RECORDS SUMMARY | 2023-12-03 21:09 | External Medical Summary | Summary of Care ---
Author Name Unknown Organization [facility] Address [address] [facility] [address] Phone [phone] Care Team Providers Care Scientific Illustrator Name Role Phone Alicia Pfeiffer DO Primary Care Provider + [phone] Reason for Visit * Reason Onset Date Comments Order Request 06/10/2023 Encounter Details Date Type Department Care Team Description 06/10/[address] [address] Alicia Pfeiffer DO [address] [place] [address] [place] [address] Order Request Allergies Active [...] refill of thesensors. Patient's granddaughter states that [facility] was supposed to fax a request for the order for the supplies. If order request is for Mammogram: Is the patient having any breast symptoms? N/A Is there a chance of ? N/A Has the patient had any breast problems in the past? NA Does the order need to be faxed somewhere? If so, where?: Yes, [employer]. Fax Number, if applicable: Call Back Number: [phone] If the caller is not a current patient, please advise the patient to call their current PCP to havethe order's prior to being seen in our office. The patient was informed that our providers would not order anything (medication, labs, etc.) prior to being seen. documented in this encounter Plan of Treatment Upcoming Encounters Date Type Specialty Care Team Description 06/30/2023 Pharmacy Pharmacy [address] [place] [address] 09/03/2023 Office Visit Family Medicine Alicia Pfeiffer, [address] [place] [address] Health Maintenance Due Date Last Done Comments COVID-19 Vaccine (3 - Moderna series) 03/29/2021 02/01/2021, 01/04/2021 *BISPHONATE OR OTHER ACCEPTABLE MEDICATION NEEDED FOR OSTEOPOROSIS (REFER TO SMARTSET #1146) 09/18/2022 Depression Screening, Annual for Pts 12 and Over 02/12/2023 02/12/2022 DIABETES-EYE EXAM 02/15/2023 02/15/2022, , 08/09/2019, Additional history exists CKD PHOS USE SMARTSET 97212 05/17/202305/01, 01/29/2021, 06/07/2020, Additional history exists Influenza Vaccine (FLU shot) (#1) 2023 08/14/2022, 08/14/2021, 09/08/2020, Additional history exists GFR 08/30/2023 02/28/2023, 11/01, 05/17/2022, Additional history exists HbA1c 08/30/2023 02/28/2023, 11/01, 08/23/2022, Additional history exists Albumin/Creatinine Ratio 02/29/2024 023, 05/17/2022, 08/07/2021, Additional history exists CKD HGB USE SMARTSET 27223 02/29/202402/28, 02/28/2023, 05/17/2022, Additional history exists DIABETES-FOOT [...] D LEVEL ONCE IN A LIFETIME-USE SMARTSET# 25293 Completed 01/29/2021, 06/07/2020, 07/12/2019, Additional history exists [...] filedocumented as of this encounter Care Teams Scientific Illustrator Relationship Specialty Start Date End Date Alicia Pfeiffer, [address] [place] [address] PCP - General Internal Medicine 08/25/17 documented as of this encounter
--- OUTSIDE RECORDS SUMMARY | 2023-12-03 21:09 | External Medical Summary | Summary of Care ---
Author Name Unknown Organization [facility] Address [address] [facility] [address] Phone [phone] Care Team Providers Care Fixture Fabricator Repairer Name Role Phone Alicia Pfeiffer DO Primary Care Provider + [phone] Reason for Visit * Reason Onset Date Comments Order Request 06/10/2023 Encounter Details Date Type Department Care Team Description 06/10/[address] [address] Alicia Pfeiffer DO [address] [place] [address] [place] [address] Order Request Allergies Active [...] goal of less than 8.0% ([facility]) Take 1 Tablet by mouth [...] long-term current use of insulin ([facility]) inject 26 units subcutaneously at [...] Telephone Encounter - Francesca Rodriguez RN - 06/16/2023 12:45 PM EDT Provider to address: [place] Reason for Call: Order Request Contact: Telephone Call Contact Type: Orders Outcome: Form updated and refaxed Total Time including non face to face (minutes): 10 * Telephone Encounter - Dolly Adrian LPN - 06/16/2023 12:08 PM EDT Provider to address: Alicia Pfeiffer DO Reason for Call: Order Request Contact: Telephone Call Contact Type: Information Outcome: Rosmery calling from [facility] stating that the form that was sent [...] and date, then please fax back to [facility]. Total Time including non [...] refill of thesensors. Patient's granddaughter states that [employer] [facility] was supposed to fax a request for the order for the supplies. If order request is for Mammogram: Is the patient having any breast symptoms? N/A Is there a chance of ? N/A Has the patient had any breast problems in the past? NA Does the order need to be faxed somewhere? If so, where?: Yes, [employer]. Fax Number, if applicable: Call Back Number: [phone] If the caller is not a current patient, please advise the patient to call their current PCP to havethe order's prior to being seen in our office. The patient was informed that our providers would not order anything (medication, labs, etc.) prior to being seen. documented in this encounter Plan of Treatment Upcoming Encounters Date Type Specialty Care Team Description 06/30/[address] [place] [address] 09/03/2023 Office Visit Family Medicine Alicia Pfeiffer[address] [place] [address] Health Maintenance Due Date Last Done Comments COVID-19 Vaccine (3 - Moderna series) 03/29/2021 02/01/2021, 01/04/2021 *BISPHONATE OR OTHER ACCEPTABLE MEDICATION NEEDED FOR OSTEOPOROSIS (REFER TO SMARTSET #1146) 09/18/2022 Depression Screening, Annual for Pts 12 and Over 02/12/2023 02/12/2022 DIABETES-EYE EXAM 02/15/2023 02/15/2022, , 08/09/2019, Additional history exists CKD PHOS USE SMARTSET 73242 05/17/202305/01, 01/29/2021, 06/07/2020, Additional history exists Influenza Vaccine (FLU shot) (#1) 2023 08/14/2022, 08/14/2021, 09/08/2020, Additional history exists GFR 08/30/2023 02/28/2023, 11/01, 05/17/2022, Additional history exists HbA1c 08/30/2023 02/28/2023, 11/01, 08/23/2022, Additional history exists Albumin/Creatinine Ratio 02/29/2024 023, 05/17/2022, 08/07/2021, Additional history exists CKD HGB USE SMARTSET 48807 02/29/202402/28, 02/28/2023, 05/17/2022, Additional history exists DIABETES-FOOT [...] D LEVEL ONCE IN A LIFETIME-USE SMARTSET# 44002 Completed 01/29/2021, 06/07/2020, 07/12/2019, Additional history exists [...] filedocumented as of this encounter Care Teams Fixture Fabricator Repairer Relationship Specialty Start Date End Date Alicia Pfeiffer[address] [place] [address] PCP - General Internal Medicine 08/25/17 documented as of this encounter
--- OUTSIDE RECORDS SUMMARY | 2023-12-03 21:09 | External Medical Summary | Summary of Care ---
Author Name Unknown Organization [facility] Address [address] [facility] [address] Phone [phone] Care Team Providers Care Web Page Designer Name Role Phone Alicia Pfeiffer DO Primary Care Provider + [phone] Reason for Visit * Reason Onset Date Comments Order Request 06/10/2023 Encounter Details Date Type Department Care Team Description 06/10/[address] [address] Alicia Pfeiffer DO [address] [place] [address] [place] [address] Order Request Allergies Active [...] goal of less than 8.0% ([facility]) Take 1 Tablet by mouth in [...] long-term current use of insulin ([facility]) inject 26 units subcutaneously at bedtime [...] refill of thesensors. Patient's granddaughter states that [facility] was supposed to fax a request for the order for the supplies. If order request is for Mammogram: Is the patient having any breast symptoms? N/A Is there a chance of ? N/A Has the patient had any breast problems in the past? NA Does the order need to be faxed somewhere? If so, where?: Yes, [employer]. Fax Number, if applicable: Call Back Number: [phone] If the caller is not a current patient, please advise the patient to call their current PCP to havethe order's prior to being seen in our office. The patient was informed that our providers would not order anything (medication, labs, etc.) prior to being seen. documented in this encounter Plan of Treatment Upcoming Encounters Date Type Specialty Care Team Description 06/30/2023 Pharmacy Pharmacy [address] [place] [address] 09/03/2023 Office Visit Family Medicine Alicia Pfeiffer, [address] [place] [address] Health Maintenance Due Date Last Done Comments COVID-19 Vaccine (3 - Moderna series) 03/29/2021 02/01/2021, 01/04/2021 *BISPHONATE OR OTHER ACCEPTABLE MEDICATION NEEDED FOR OSTEOPOROSIS (REFER TO SMARTSET #1146) 09/18/2022 Depression Screening, Annual for Pts 12 and Over 02/12/2023 02/12/2022 DIABETES-EYE EXAM 02/15/2023 02/15/2022, , 08/09/2019, Additional history exists CKD PHOS USE SMARTSET 90214 05/17/202305/01, 01/29/2021, 06/07/2020, Additional history exists Influenza Vaccine (FLU shot) (#1) 2023 08/14/2022, 08/14/2021, 09/08/2020, Additional history exists GFR 08/30/2023 02/28/2023, 11/01, 05/17/2022, Additional history exists HbA1c 08/30/2023 02/28/2023, 11/01, 08/23/2022, Additional history exists Albumin/Creatinine Ratio 02/29/2024 023, 05/17/2022, 08/07/2021, Additional history exists CKD HGB USE SMARTSET 61424 02/29/202402/28, 02/28/2023, 05/17/2022, Additional history exists DIABETES-FOOT [...] D LEVEL ONCE IN A LIFETIME-USE SMARTSET# 53861 Completed 01/29/2021, 06/07/2020, 07/12/2019, Additional history exists [...] filedocumented as of this encounter Care Teams Web Page Designer Relationship Specialty Start Date End Date Alicia Pfeiffer, [address] [place] [address] PCP - General Internal Medicine 08/25/17 documented as of this encounter
--- OUTSIDE RECORDS SUMMARY | 2023-12-03 21:09 | External Medical Summary | Summary of Care ---
Author Name Unknown Organization [facility] Address [address] [place] [address] Phone [phone] Care Team Providers Care Clothing Designer Name Role Phone Clif Summers DO Primary Care Provider + [phone] Reason for Visit * Reason Onset Date Comments Medication Refill 06/26/2023 Encounter Details Date Type Department Care Team Description 06/26/2023 Refill Family Medicine [address] [address] Clif Summers DO [address] [place] [address] [id number] Allergies Active Allergy Reactions Severity Noted Date [...] as of this encounter (statuses as of 06/27/2023) Medications Medication Sig Dispensed Refills Start Date [...] of less than 8.0% ([facility]) Take 1 Tablet by mouth in [...] current use of insulin ([facility]) inject 26 units subcutaneously at bedtime [...] morning. 90 Tablet 3 2 Active OneTouch Verraman In Vitro Strip (Glucose Blood) Use to test blood sugars up to three times daily DxE11.9 100 Strip 3 3 Active Omeprazole 20 MG Oral Capsule Delayed Release (PriLOSEC) Take 1 Capsule by mouth in the morning. 1 hour before the first meal of the day. 90 Capsule 1 3 Active HYDROcodone-Acetami nophen 5-325 MG Oral TabletIndications:D egeneration of lumbosacral intervertebral disc Take 1 Tablet by mouth every 8 hours as needed for Pain, Severe. Continued script 30 Tablet 0 3 Active BD Pen Needle Mini U/F 31G X 5 MM (Insulin Pen Needle) use 1 PEN NEEDLE to inject MEDICATION subcutaneously 5 times a day 500 Each 3 3 Active NovoLOG FlexPen 100 UNIT/ML Subcutaneous Solution Pen-injector (insulin aspart)Indications: Type 2 diabetes mellitus with hemoglobin A1c goal of less than 7.0% ([facility]),Type 2 diabetes mellitus with stage 3b chronic kidney disease, without long-term current use of insulin ([facility]) PER SLIDING SCALE 4 TIMES A DAY (APPOX 40 UNITS PER DAY)DX E11.9 36 mL 1 3 Active Ozempic (2 MG/DOSE) 8 MG/3ML Subcutaneous Solution Pen-injector (Semaglutide (2 MG/DOSE)) Inject 2 mg under the skin once a week. 3 mL 1 3 Active Ozempic (2 MG/DOSE) 8 MG/3ML Subcutaneous Solution Pen-injector (Semaglutide (2 MG/DOSE)) Inject 2 mg under the skin once a week. 3 mL 1 3 06/26/20 23 Discontinu ed(Refill) documented as of this encounter (statuses as of 06/27/2023) Active Problems Problem Noted Date Type 2 [...] as of this encounter (statuses as of 06/27/2023) Resolved Problems Problem Noted Date Resolved Date [...] as of this encounter (statuses as of 06/27/2023) Immunizations Name Administration Dates Next Due COVID-19 [...] encounter Miscellaneous Notes * Telephone Encounter - Marco Rosenberg RPh - 06/27/2023 11:28 AM EDTSigned Prescriptions: Disp Refills Ozempic (2 MG/DOSE) 8 MG/3ML Subcutaneous *3 mL 1 Sig: Inject 2 mg under the skin once a week. Authorizing Provider: CLIF SUMMERS Ordering User: MARCO ROSENBERG * Telephone Encounter - Jannette Gaona - 06/26/2023 5:04 PM EDT Please reroute Rx to [facility], [address] SAM WARNER. Pending Prescriptions: Disp Refills Ozempic (2 MG/DOSE) 8 MG/3ML Subcutaneous*3 mL 1 Sig: Inject 2 mg under the skin once a week. Last Visit: 02/28/2023 (in office), Visit date not found (telemedicine) 09/03/2023 If no future appointments scheduled, and last appointment is greater than a year ago, please schedule patient for a follow-up appointment Last date the medication was ordered: 05/28/2023 Patient Phone Numbers Labs: Lab Results Component [...] Specialty Care Team Description 06/30/2023 Pharmacy Pharmacy [address] [place] [address] 09/03/2023 Office Visit Family Medicine Clif Summers, [address] [place] [address] Health Maintenance Due Date Last Done Comments COVID-19 Vaccine (3 - Moderna series) 03/29/2021 02/01/2021, 01/04/2021 *BISPHONATE OR OTHER ACCEPTABLE MEDICATION NEEDED FOR OSTEOPOROSIS (REFER TO SMARTSET #1146) 09/18/2022 Depression Screening, Annual for Pts 12 and Over 02/12/2023 02/12/2022 DIABETES-EYE EXAM 02/15/2023 02/15/2022, , 08/09/2019, Additional history exists CKD PHOS USE SMARTSET 99593 05/17/202305/01, 01/29/2021, 06/07/2020, Additional history exists Influenza Vaccine (FLU shot) (#1) 2023 08/14/2022, 08/14/2021, 09/08/2020, Additional history exists GFR 08/30/2023 02/28/2023, 11/01, 05/17/2022, Additional history exists HbA1c 08/30/2023 02/28/2023, 11/01, 08/23/2022, Additional history exists Albumin/Creatinine Ratio 02/29/2024 023, 05/17/2022, 08/07/2021, Additional history exists CKD HGB USE SMARTSET 34072 02/29/202402/28, 02/28/2023, 05/17/2022, Additional history exists DIABETES-FOOT [...] D LEVEL ONCE IN A LIFETIME-USE SMARTSET# 95251 Completed 01/29/2021, 06/07/2020, 07/12/2019, Additional history exists [...] filedocumented as of this encounter Care Teams Clothing Designer Relationship Specialty Start Date End Date Clif Summers, [address] [place] [address] PCP - General Internal Medicine 08/25/17 documented as of this encounter
--- OUTSIDE RECORDS SUMMARY | 2023-12-03 21:10 | External Medical Summary | Summary of Care ---
Author Name Unknown Organization [facility] Address [address] [facility] [place] [address] Phone [phone] Care Team Providers Care Case Technician Name Role Phone Pfeiffer, Alicia Coburn DO Primary Care Provider Reason for Visit * Reason Comments Left Message Encounter Details Date Type Department Care Team Description 06/09/2023 Pharmacy Pharmacy, [address] [place] [address] [place] [address] Type 2 diabetes mellitus with hemoglobin A1c goal of less than 8.0% ([facility])* Allergies Active Allergy Reactions Severity Noted Date [...] as of this encounter (statuses as of 06/09/2023) Medications Medication Sig Dispensed Refills Start Date [...] goal of less than 8.0% ([facility]) Take 1 Tablet by mouth [...] of insulin ([facility]) inject 26 units subcutaneously at [...] the morning. 90 Tablet 3 11/21/2022 Active NovoLOG FlexPen 100 UNIT/ML Subcutaneous Solution Pen-injector (insulin aspart)Indications: Type 2 diabetes mellitus with hemoglobin A1c goal of less than 7.0% ([facility]),Type 2 diabetes mellitus with stage 3b chronic kidney disease, without long-term current use of insulin ([facility]) PER SLIDING SCALE 4 TIMES A DAY (APPOX 40 UNITS PER DAY)DX E11.9 36 mL 1 02/03/2023 Active OneTouch Verio In Vitro Strip (Glucose [...] as of this encounter (statuses as of 06/09/2023) Active Problems Problem Noted Date Type 2 [...] as of this encounter (statuses as of 06/09/2023) Resolved Problems Problem Noted Date Resolved Date [...] as of this encounter (statuses as of 06/09/2023) Immunizations Name Administration Dates Next Due COVID-19 [...] as of this encounter Progress Notes * Jasmyne Mittal CPhT - 06/09/2023 8:00 AM EDT Patient Phone Numbers [facility] on patients answering machine [facility] sent -- yes Clinic will follow up again in 3 week(s). [Attempt # 2] Thank you, Jasmyne Mittal CPhT 06/09/2023 8:00 AM documented in this encounter Plan of Treatment Upcoming Encounters Date Type Specialty Care Team Description 06/30/2023 Pharmacy Pharmacy [facility] [address] [place] [address] 09/03/2023 Office Visit Family Medicine Alicia Pfeiffer, [address] [place] [address] Health Maintenance Due Date Last Done Comments COVID-19 Vaccine (3 - Moderna series) 03/29/2021 02/01/2021, 01/04/2021 *BISPHONATE OR OTHER ACCEPTABLE MEDICATION NEEDED FOR OSTEOPOROSIS (REFER TO SMARTSET #1146) 09/18/2022 Depression Screening, Annual for Pts 12 and Over 02/12/2023 02/12/2022 DIABETES-EYE EXAM 02/15/2023 02/15/2022, , 08/09/2019, Additional history exists CKD PHOS USE SMARTSET 56215 05/17/202305/01, 01/29/2021, 06/07/2020, Additional history exists Influenza Vaccine (FLU shot) (#1) 2023 08/14/2022, 08/14/2021, 09/08/2020, Additional history exists GFR 08/30/2023 02/28/2023, 11/01, 05/17/2022, Additional history exists HbA1c 08/30/2023 02/28/2023, 11/01, 08/23/2022, Additional history exists Albumin/Creatinine Ratio 02/29/2024 023, 05/17/2022, 08/07/2021, Additional history exists CKD HGB USE SMARTSET 27840 02/29/202402/28, 02/28/2023, 05/17/2022, Additional history exists DIABETES-FOOT [...] D LEVEL ONCE IN A LIFETIME-USE SMARTSET# 24717 Completed 01/29/2021, 06/07/2020, 07/12/2019, Additional history exists [...] Primary documented in this encounter Care Teams Case Technician Relationship Specialty Start Date End Date Alicia Pfeiffer[address] [place] [address] PCP - General Internal Medicine 08/25/17 documented as of this encounter
--- OUTSIDE RECORDS SUMMARY | 2023-12-03 21:10 | External Medical Summary | Summary of Care ---
Author Name Unknown Organization [facility] Address [address] [place] [address] Phone [phone] Care Team Providers Care Armor Reconnaissance Vehicle Driver Name Role Phone Clif Summers DO Primary Care Provider + [phone] Reason for Visit * Reason Onset Date Comments Medication Refill 06/11/2023 Encounter Details Date Type Department Care Team Description 06/11/2023 Refill Family Medicine [address] [address] Clif Summers DO [address] [place] [address] [place] [address] Type 2 diabetes mellitus with hemoglobin A1c goal of less than 7.0% ([facility]); Type 2 diabetes mellitus with stage 3b chronic kidney disease, without long-term current use of insulin ([facility]) Allergies Active Allergy Reactions Severity Noted [...] disease, without long-term current use of insulin ([facility]) inject 26 units subcutaneously at bedtime [...] a day 500 Each 3 3 Active Ozempic (2 MG/DOSE) 8 MG/3ML Subcutaneous Solution Pen-injector (Semaglutide (2 MG/DOSE)) Inject 2 mg under the skin once a week. 3 mL 1 3 Active NovoLOG FlexPen 100 [...] PER DAY)DX E11.9 36 mL 1 3 06/11/20 23 Discontinu ed(Refill) documented as of this [...] Telephone Encounter - Clif Summers DO - 06/11/2023 8:26 AM EDTSigned Prescriptions: Disp Refills NovoLOG FlexPen 100 UNIT/ML Subcutaneous S*36 mL 1 Sig: PER SLIDING SCALE 4 TIMES A DAY (APPOX 40 UNITS PER DAY)DX E11.9 Authorizing Provider: CLIF SUMMERS * Telephone Encounter - Kinga Fitch LPN - 06/11/2023 8:20 AM EDTPending Prescriptions: Disp Refills NovoLOG FlexPen 100 UNIT/ML Subcutaneous S*36 mL 1 Sig: PER SLIDING SCALE 4 TIMES A DAY (APPOX 40 UNITS PER DAY)DX E11.9 * Telephone Encounter - Temitope Fox - 06/11/2023 7:50 AM EDT Did you pend patient's preferred pharmacy and medication before forwarding?yes Pharmacy: [id number] Pending Prescriptions: Disp Refills NovoLOG FlexPen 100 UNIT/ML Subcutaneous *36 mL 1 Sig: PER SLIDING SCALE 4 TIMES A DAY (APPOX 40 UNITS PER DAY)DX E11.9 Last Visit: 02/28/2023 (in office), Visit date not found (telemedicine) Next Visit: 09/03/2023 If no future appointments scheduled, and last appointment is greater than a year ago, please schedule patient for a follow-up appointment Last date the medication was ordered: 02/03/2023 Is this request for a controlled substance?No [...] Type Specialty Care Team Description 06/30/[address] [place] [address] 09/03/2023 Office Visit Family Medicine Clif Summers, [address] [place] [address] Health Maintenance Due Date Last Done Comments COVID-19 Vaccine (3 - Moderna series) 03/29/2021 02/01/2021, 01/04/2021 *BISPHONATE OR OTHER ACCEPTABLE MEDICATION NEEDED FOR OSTEOPOROSIS (REFER TO SMARTSET #1146) 09/18/2022 Depression Screening, Annual for Pts 12 and Over 02/12/2023 02/12/2022 DIABETES-EYE EXAM 02/15/2023 02/15/2022, , 08/09/2019, Additional history exists CKD PHOS USE SMARTSET 69658 05/17/202305/01, 01/29/2021, 06/07/2020, Additional history exists Influenza Vaccine (FLU shot) (#1) 2023 08/14/2022, 08/14/2021, 09/08/2020, Additional history exists GFR 08/30/2023 02/28/2023, 11/01, 05/17/2022, Additional history exists HbA1c 08/30/2023 02/28/2023, 11/01, 08/23/2022, Additional history exists Albumin/Creatinine Ratio 02/29/2024 023, 05/17/2022, 08/07/2021, Additional history exists CKD HGB USE SMARTSET 94188 02/29/202402/28, 02/28/2023, 05/17/2022, Additional history exists DIABETES-FOOT [...] D LEVEL ONCE IN A LIFETIME-USE SMARTSET# 43801 Completed 01/29/2021, 06/07/2020, 07/12/2019, Additional history exists [...] (HCC) documented in this encounter Care Teams Armor Reconnaissance Vehicle Driver Relationship Specialty Start Date End Date Clif Summers[address] [place] [address] PCP - General Internal Medicine 08/25/17 documented as of this encounter
--- NOTE | 2023-12-03 21:46 | Ultrasound Report ---
Exam(s): US VENOUS BILATERAL LOWER EXTREMITIES EXAM: US Duplex Bilateral Lower Extremities Veins CLINICAL HISTORY: Reason for exam: Le swelling, new afib, rule out DVT thanks. TECHNIQUE: Real-time duplex ultrasound scan of the bilateral lower extremity veins integrating B-mode two-dimensional vascular structure, Doppler spectral analysis, color flow Doppler imaging and compression. COMPARISON: No relevant prior studies available. FINDINGS: Right deep veins: Thrombus in the RIGHT gastrocnemius vein at the popliteal fossa. This thrombus extends approximately 5 cm. Right superficial veins: Unremarkable. No thrombus in the visualized right great saphenous vein. Left deep veins: Nonvisualized LEFT peroneal vein. No DVT in the left common femoral, femoral, proximal deep femoral or popliteal veins. The veins demonstrate normal color flow, are normally compressible, with normal phasic flow and/or augmentation response. Left superficial veins: Unremarkable. No thrombus in the visualized left great saphenous vein. Soft tissues: No acute findings. No popliteal cyst. IMPRESSION: Thrombus in the RIGHT gastrocnemius vein at the popliteal fossa. Electronically signed by: Jayden Roberson MD 12/03/23 21:44 PM
[2023-12-03] MEDS: INSULIN ASPART PER UNIT CHARGE SC SCH (22:20)
[2023-12-03] MEDS: LANTUS PER UNIT CHARGE SQ SCH (22:21)
[2023-12-03] MEDS: ESCITALOPRAM OXALATE 20 MG TAB PO SCH (22:26)
[2023-12-04] MEDS: LATANOPROST 0.005% OP SOLN 2.5 ML BTL OPB SCH (00:44)
[2023-12-04 02:30] LABS: Adenovirus F 40/41 PCR Not Detected (NotDetected); Astrovirus PCR Not Detected (NotDetected); Campylobacter PCR Not Detected (NotDetected); Cryptosporidium PCR Not Detected (NotDetected); Cyclospora cayetanensis PCR Not Detected (NotDetected); Entamoeba histolytica PCR Not Detected (NotDetected); Enteroaggregative E.coli(EAEC) Not Detected (NotDetected); Enteropathogenic E.coli (EPEC) Not Detected (NotDetected); Enterotoxigenic E.coli (ETEC) Not Detected (NotDetected); Giardia lamblia PCR Not Detected (NotDetected); Norovirus GI/GII PCR Not Detected (NotDetected); Plesiomonas shigelloides PCR Not Detected (NotDetected); Rotavirus A PCR Not Detected (NotDetected); Salmonella PCR Not Detected (NotDetected); Sapovirus PCR Not Detected (NotDetected); Shiga-like Toxin E.coli (STEC) Not Detected (NotDetected); Shigella/Enteroinvasive E.coli Not Detected (NotDetected); Vibrio cholerae PCR Not Detected (NotDetected); Vibrio species PCR Not Detected (NotDetected); Yersinia enterocolitica PCR Not Detected (NotDetected)
[2023-12-04 04:01] LABS: Hematocrit (blood only) 30.1 % (37.0-47.0); Hemoglobin 9.7 g/dl (12.0-16.0); Mean Corpuscular Hemoglobin 30.1 pg (25.0-34.0); Mean Corpuscular Hgb Conc 32.2 g/dL (32.0-36.0); Mean Corpuscular Volume 93.5 fL (80.0-100.0); Mean Platelet Volume 10.5 fL (9.4-12.4); Platelet Count 273 K/uL (130-400); RDW Coefficient of Variation 12.8 % (11.5-14.5); RDW Standard Deviation 43.8 fL (36.4-46.3); Red Blood Count 3.22 M/uL (4.20-5.40); White Blood Count 10.67 K/ul (4.8-10.8)
[2023-12-04 04:25] LABS: BUN Creatinine Ratio 15.1 (10-20); Calcium 8.5 mg/dl (8.6-10.3); Creatinine Clr Calc Pharmacy 36.8 ml/min; Est GFR (African American) 45.6 ml/min; Est GFR (Non-African American) 39.4 ml/min; Magnesium 2.9 mg/dl (1.7-2.4); Phosphorus 4.4 mg/dl (2.5-4.9); Potassium 4.8 mmol/L (3.5-5.1); Troponin I High Sensitivity 46.8 pg/ml (0-14)
[2023-12-04] MEDS: LEVOTHYROXINE SODIUM 125 MCG TABLET PO SCH (05:31)
[2023-12-04] MEDS: PANTOprazole 40 MG TAB PO SCH (05:31)
[2023-12-04 07:38] LABS: Estimated Average Glucose 209 mg/dl; Hemoglobin A1C 8.9 % (4.5-5.6)
--- OUTSIDE RECORDS SUMMARY | 2023-12-04 08:01 | External Medical Summary | Summary of Care ---
Author Name Unknown Organization [facility] Address [address] [facility] [place] [address] Phone [phone] Care Team Providers Care Diesel Scoop Operator Name Role Phone Alicia Pfeiffer DO Primary Care Provider + [phone] Reason for Visit * Reason Onset Date Comments Med Request 12/02/2023 Encounter Details Date Type Department Care Team (Late st Contact Info) Description 12/02/2023 Telephone Family Medicine [address] [place] [address] Alicia Pfeiffer DO [address] [place] [address] [place] [phone] Med Request Allergies Active Allergy Reactions Criticality [...] as of this encounter (statuses as of 12/03/2023) Medications Medication Sig Dispensed Refills Start Date [...] than 8.0% ([facility]) Take 1 Tablet by mouth in [...] of insulin ([facility]) inject 26 units subcutaneously at bedtime [...] 14 days. 3 Each 3 09/19/2023 Active HYDROcodone-Acetami nophen 5-325 MG Oral TabletIndications:D [...] DAY)DX E11.9 36 mL 1 10/22/2023 Active Escitalopram Oxalate 20 MG Oral Tablet (Lexapro) One daily 90 Tablet 1 11/25/2023 Active Atorvastatin Calcium 40 MG Oral Tablet (Lipitor)Indication s:Dyslipidemia, goal LDL below 100 TAKE 1 TABLET BY MOUTH EVERY DAY IN THE MORNING 90 Tablet 1 11/27/2023 Active Losartan Potassium 25 MG Oral Tablet (Cozaar)Indications :Bradycardia,Essent ial hypertension with goal blood pressure less than 140/90 TAKE 1 TABLET BY MOUTH EVERY DAY IN THE MORNING 90 Tablet 1 11/27/2023 Active Metoprolol Succinate ER 100 MG Oral Tablet Extended Release 24 Hour (toPROL XL) TAKE 1.5 TABLETS BY MOUTH IN THE MORNING. 135 Tablet 3 11/27/2023 Active documented as of this encounter (statuses as of 12/03/2023) Active Problems Problem Noted Date Diagnosed Date [...] as of this encounter (statuses as of 12/03/2023) Resolved Problems Problem Noted Date Diagnosed Date [...] as of this encounter (statuses as of 12/03/2023) Immunizations Name Administration Dates Next Due COVID-19 [...] Telephone Encounter - Alicia Pfeiffer DO - 12/03/2023 11:12 AM EST Will see her at appt * Telephone Encounter - Paige Rutledge LPN - 12/03/2023 8:44 AM EST Patient called. She started to feel better and has an appt. Today @ 11 a.m. * Telephone Encounter - Carlitos Ardon OSA - 12/02/2023 3:29 PM EST Pt daughter is calling to check status of req, reminded time frame, but they are worried since mom still isn't feeling well. Please call back at [phone] * Telephone Encounter - Alfonso Gomez PHARM Tech - 12/02/2023 10:54 AM EST Pt calling with complaints of Vomiting since 12 noon yesterday and is requesting a medication be prescribed. Pt did not want to schedule an appointment at this time. Call details was completed, please refer to this for further information. Pt is not able to keep anything down including her daily medications ThanksAlfonso, t Garden Consultant [facility] ([facility]). 12/02/2023,10:55 AM documented in this encounter Plan of Treatment Upcoming Encounters Date Type Department Care Team (Late st Contact Info) Description 03/19/2024 2:30 PM EDT Office Visit Family Medicine [address] [place] [phone] [place] [id number] Health Maintenance Due Date Last Done Comments Hepatitis B (1 of 3 - Risk 3-dose series) 2000 *BISPHONATE OR OTHER ACCEPTABLE MEDICATION NEEDED FOR OSTEOPOROSIS (REFER TO SMARTSET #1146) 09/18/2022 Depression Screening 02/12/2023 02/12/2022 Albumin/Creatinine Ratio 02/29/2024 023, 05/17/2022, 08/07/2021, Additional history exists Diabetic Foot Exam 02/29/2024 02/28/2023, 0 02/12/2022, 04/10/2021, Additional history exists GFR 03/04/2024 09/03/2023, 1003/2023, 07/24/2023, Additional history exists HbA1c 03/04/2024 09/03/2023, 01/31, 11/21/2022, Additional history exists Diabetic Eye Exam 08/18/2024 08/18/2023, , 05/26/2020, Additional history exists DXA Scan 08/27/2024 08/27/2022, 03/2016, 10/05/2013, Additional history exists CKD HGB USE SMARTSET 22613 09/03/202409/03, 09/03/2023, 07/24/2023, Additional history exists CKD PHOS USE SMARTSET 27100 09/03/202403/2023, 05/17/2022, 01/29/2021, Additional history exists TSH 09/03/2024 09/03/2023, 01/31, 06/14/2022, Additional history exists DTaP,Tdap,and Td Vaccines (2 - Td or Tdap) 11/12/2028 11/12/2018, 08/12/2008 Pneumococcal Vaccine: 65+ Years Completed 01/16/2015, 06/13/2006, 09/10/1995 Zoster Vaccines Completed 05/19/2020, 01/2020, 08/07/2018, Additional history exists VITAMIN D LEVEL ONCE IN A LIFETIME-USE SMARTSET# 54042 Completed 01/29/2021, 06/07/2020, 07/12/2019, Additional history exists [...] filedocumented as of this encounter Care Teams Diesel Scoop Operator Relationship Specialty Start Date End Date Alicia Pfeiffer DO [address] [place] [address] [place] [phone] PCP - General Internal Medicine 08/25/17 documented as of this encounter
--- OUTSIDE RECORDS SUMMARY | 2023-12-04 08:01 | External Medical Summary | Summary of Care ---
Author Name Unknown Organization [facility] Address [address] [facility] [place] [address] Phone [phone] Care Team Providers Care Relationship Executive Name Role Phone Alicia Pfeiffer DO Primary Care Provider Reason for Visit * Reason Comments Acute Pt c/o cough x 2.5 w eeks, was seen at [facility] twice, then started with nausea and vomiting on Friday evening, no appetite/can't keep anything down, blood sugars have been dropping (80 this morning, took 10 units of insulin this morning). Pt states she was out of ozempic for almost 2 months, and restarted at 2 mg on Friday. Encounter Details Date Type Department Care Team (Late st Contact Info) Description 12/03/2023 11:10 AM EST Office Visit Family Medicine [address] [place] [phone] Alicia Pfeiffer DO [address] [place] [address] [place] [phone] Tachypnea*; Nausea and vomiting, unspecified vomiting type; Inadequate oral intake; Hypoglycemia; Generalized weakness Allergies Active Allergy Reactions Criticality Noted Date [...] goal of less than 8.0% ([facility]) Take 1 Tablet by mouth in the [...] long-term current use of insulin ([facility]) inject 26 units subcutaneously at bedtime 30 [...] goal of less than 7.0% ([facility]),Type 2 diabetes mellitus with stage 3b chronic kidney disease, without long-term current use of insulin ([facility]) PER SLIDING SCALE 4 TIMES A DAY (APPOX 40 UNITS PER DAY)DX E11.9 36 mL 1 10/22/2023 Active Additional Information Patient not taking.Reported on 12/03/2023 Escitalopram Oxalate 20 MG Oral Tablet (Lexapro) [...] Sign Reading Time Taken Comments Blood Pressure 162/70 12/03/2023 11:23 AM EST Pulse 86 12/03/2023 11:23 AM EST Temperature 37.1 C (98.7 F) 12/03/2023 11:[address] Respiratory Rate 30 12/03/2023 11:23 AM EST Oxygen Saturation 96% 12/03/2023 11:23 AM EST Inhaled Oxygen Concentration - - Weight 90.7 kg (200 lb) 12/03/2023 11:23 AM EST Height - - Body Mass Index 36.58 06/14/2022 2:07 PM EDT documented in this encounter Progress Notes * Alicia Pfeiffer DO - 12/03/2023 11:31 AM EST Subjective: Diamond Rogers is a 83 year old female. Chief Complaint Patient presents with Acute Pt c/o cough x 2.5 weeks, was seen at [facility] twice, then started with nausea and vomiting on , no appetite/can't keep anything down, blood sugars have been dropping (80 this morning, took 10 units of insulin this morning). Pt states she was out of ozempic for almost 2 months, and restarted at 2 mg on Friday. HPI: Diamond Rogers presents today with her daughter for evaluation of illness/injury. A few weeks agoshe began having increased shortness of breath and LE edema. She has also been weak. On Friday she restarted Ozempic 2 mg after not taking it for several months. Shortly after she began to vomit and has not been able to keep anything down in several days. Additionally, she has been having low blood sugars - as low as the 50s overnight and has had trouble getting her blood sugars back up. We were unable to weigh her today due to her weakness. She has recently been afraid to sleep at night; she has not wanted to be alone at home by herself. PMH: Patient Active Problem List Diagnosis Code CLASSICAL MIGRAINE WITHOU MENTION OF INTRACTABLE MIGRAINE G43.109 Senile osteoporosis M81.0 Acquired hypothyroidism E03.9 Vitamin B deficiency E53.9 HTN, goal below 140/90 I10 Hyperlipidemia with target LDL less than 70 E78.5 Severe obesity with body mass index (BMI) of 35.0 to 39.9 with serious comorbidity ([facility]) E66.01 Degeneration of lumbosacral intervertebral disc M51.37 DM type 2 causing neurological disease ([facility]) E11.49 Esophageal reflux K21.9 Esophageal spasm K22.4 CECILIA inhibitor intolerance Peripheral sensory neuropathy G60.8 Low HDL (under 40) E78.6 Primary osteoarthritis of both hands M19.041, M19.042 Type 2 diabetes mellitus with hemoglobin A1c goal of less than 8.0% ([facility]) E11.9 Mild nonproliferative diabetic retinopathy of both eyes without macular edema associated with type 2 diabetes mellitus ([facility]) E11.3293 Diabetes mellitus type 2 with peripheral artery disease ([facility]) E11.51 Current moderate episode of major depressive disorder without prior episode ([facility]) F32.1 Type 2 diabetes mellitus with diabetic neuropathy ([facility]) E11.40 Abnormal MRI, spine R93.7 Hypertensive kidney disease with stage 3b chronic kidney disease I12.9, N18.32 Spinal stenosis of lumbar region without neurogenic claudication M48.061 Type 2 diabetes mellitus with stage 3b chronic kidney disease, with long-term current use of insulin ([facility]) E11.22, N18.32, Z79.4 Chronic kidney disease, stage 3b ([facility]) N18.32 Current Outpatient Medications Medication Sig Dispense [...] by mouth every 8 hours as needed. OneTouch Verio In Vitro Strip (Glucose Blood) Use to test blood sugars up to three times daily DxE11.9 100 Strip 3 BD Pen Needle Mini U/F 31G X 5 MM (Insulin Pen Needle) use 1 PEN NEEDLE to inject MEDICATION subcutaneously 5 times a day 500 Each 3 Insulin Glargine Solostar 100 UNIT/ML Subcutaneous Solution Pen-injector (Basaglar KwikPen) inject 26 units subcutaneously at bedtime 30 mL 3 Ozempic (2 MG/DOSE) 8 MG/3ML Subcutaneous Solution Pen-injector (Semaglutide (2 MG/DOSE)) INJECT 2MG UNDER THE SKIN ONCE WEEKLY 3 mL 1 Omeprazole 20 MG Oral Capsule Delayed Release (PriLOSEC) Take 1 Capsule by mouth in the morning. 1 hour before the first meal of the day. 90 Capsule 3 amLODIPine Besylate 2.5 MG Oral Tablet (Norvasc) Take 1 Tablet by mouth in the morning. 90 Tablet 3 FreeStyle Oscar 2 Sensor Use as directed. Change every 14 days. 3 Each 3 HYDROcodone-Acetaminophen 5-325 MG Oral Tablet Take 1 Tablet by mouth every 8 hours as needed for Pain, Severe. Continued script 30 Tablet 0 Levothyroxine Sodium 125 MCG Oral Tablet (Levoxyl) TAKE 1 TABLET BY MOUTH IN THE MORNING. (AT LEAST30 MIN PRIOR TO BREAKFAST OR OTHER MEDS). 90 Tablet 3 Escitalopram Oxalate 20 MG Oral Tablet (Lexapro) One daily 90 Tablet 1 Atorvastatin Calcium 40 MG Oral Tablet (Lipitor) TAKE 1 TABLET BY MOUTH EVERY DAY IN THE MORNING 90Tablet 1 Losartan Potassium 25 MG Oral Tablet (Cozaar) TAKE 1 TABLET BY MOUTH EVERY DAY IN THE MORNING 90 Tablet 1 Metoprolol Succinate ER 100 MG Oral Tablet Extended Release 24 Hour (toPROL XL) TAKE 1.5 TABLETS BYMOUTH IN THE MORNING. 135 Tablet 3 NovoLOG FlexPen 100 UNIT/ML Subcutaneous Solution Pen-injector (insulin aspart) PER SLIDING SCALE 4 TIMES A DAY (APPOX 40 UNITS PER DAY)DX E11.9 (Patient not taking: Reported on 12/03/2023) 36 mL 1 No current facility-administered medications for this visit. Review of patient's allergies indicates: Allergen Reactions Nsaids Renal complications Worsening of renal function Baclofen Other (Please comment) Dizzy, nausea Effexor [Venlafaxine] Itching, panic attack Levaquin [Levofloxacin Hemihydrate] nausea,sleeplessness Meclizine made dizziness worse Nitroglycerin Passed out, hit head Tramadol Hcl dizziness,syncope Lisinopril Cough Zoloft [Sertraline Hcl] Itching itching Objective: BP 162/70 | Pulse 86 | Temp 37.1 C (98.7 F) | SpO2 96% General: ill-appearing Neck: supple, no adenopathy, thyroid normal size, non-tender, without nodularity Heart: regular rate & rhythm and no murmur Lungs: chest symmetric with normal AP diameter, no chest deformities noted, normal respiratory rateand rhythm, lungs clear to auscultation, no rhonchi or rales Abdomen: abdomen soft, non-tender, and obese Extremities: no joint deformities, effusion, or inflammation, (+) mild edema Neuro Exam: alert & oriented x 3 with fluent speech, no focal motor/sensory deficits, in wheelchair Psych: tearful ASSESSMENT/PLAN: Tachypnea (Primary) Nausea and vomiting, unspecified vomiting type - I suspect this is related to her restarting Ozempic 2 mg Inadequate oral intake - has not kept anything down in about 2-3 days. Hypoglycemia - has a CGM. BS here is 155, but was in the 50s overnight Generalized weakness - ?dehydration. Check-out note: Pending ER evaluation Alicia Pfeiffer DO documented in this encounter Plan of Treatment Upcoming Encounters Date Type Department Care Team (Late st Contact Info) Description 03/19/2024 2:30 PM EDT Office Visit Family Medicine [address] [place] [phone] [place] [phone] Health Maintenance Due Date Last Done Comments [...] Additional history exists CKD HGB USE SMARTSET 74984 09/03/202409/03, 09/03/2023, 07/24/2023, Additional history exists CKD PHOS USE SMARTSET 60514 09/03/20240 03/2023, 05/17/2022, 01/29/2021, Additional history exists TSH 09/03/2024 09/03/2023, 01/31, 06/14/2022, Additional history exists DTaP,Tdap,and Td Vaccines (2 - Td or Tdap) 11/12/2028 11/12/2018, 08/12/2008 Pneumococcal Vaccine: 65+ Years Completed 01/16/2015, 06/13/2006, 09/10/1995 Zoster Vaccines Completed 05/19/2020, 01/2020, 08/07/2018, Additional history exists VITAMIN D LEVEL ONCE IN A LIFETIME-USE SMARTSET# 43723 Completed 01/29/2021, 06/07/2020, 07/12/2019, Additional history exists [...] as of this encounter Visit Diagnoses Diagnosis Tachypnea- Primary Nausea and vomiting, unspecified vomiting type Inadequate oral intake Other symptoms concerning nutrition, metabolism, and development Hypoglycemia Hypoglycemia, unspecified Generalized weakness Other malaise and fatigue documented in this encounter Care Teams Relationship Executive Relationship Specialty Start Date End Date Alicia Pfeiffer DO [address] [place] [address] [place] [id number] PCP - General Internal Medicine 08/25/17 documented as of this encounter"
[2023-12-04] MEDS: ASPIRIN 81 MG ECTAB PO SCH (08:49)
[2023-12-04] MEDS: METOPROLOL SUCC 50MG EXT REL TAB PO SCH (08:49)
[2023-12-04] MEDS: LOSARTAN POTASSIUM 25 MG TAB PO SCH (08:49)
[2023-12-04] MEDS: CYANOCOBALAMIN (B-12) 100 MCG TABLET PO SCH (08:49)
[2023-12-04] MEDS: amLODIPine BESYLATE 5 MG TAB PO SCH (08:49)
[2023-12-04] MEDS: ATORVASTATIN 40 MG TAB PO SCH (08:50)
--- NOTE | 2023-12-04 13:52 | Electrocardiogram Report ---
Test Reason : Blood Pressure : / mmHG Vent. Rate : 098 BPM Atrial Rate : 000 BPM P-R Int : 000 ms QRS Dur : 088 ms QT Int : 328 ms P-R-T Axes : 000 -55 091 degrees QTc Int : 418 ms Atrial fibrillation Left anterior fascicular block Minimal voltage criteria for LVH, may be normal variant Septal infarct (cited on or before 03-DEC-2023) T wave abnormality, consider lateral ischemia Abnormal ECG When compared with ECG of 03-DEC-2023 12:47, Atrial fibrillation has replaced Sinus rhythm QT has shortened Confirmed by Toni Griffin ([id number]) on 12/04/2023 1:52:22 PM Referred By: Alicia Pfeiffer Confirmed By:Toni Griffin
--- NOTE | 2023-12-04 14:45 | Electrocardiogram Report ---
Test Reason : Blood Pressure : / mmHG Vent. Rate : 068 BPM Atrial Rate : 068 BPM P-R Int : 210 ms QRS Dur : 090 ms QT Int : 428 ms P-R-T Axes : 052 -32 033 degrees QTc Int : 455 ms Sinus rhythm with 1st degree A-V block Left axis deviation Septal infarct (cited on or before 03-DEC-2023) Abnormal ECG When compared with ECG of 03-DEC-2023 18:19, (unconfirmed) Sinus rhythm has replaced Atrial fibrillation T wave inversion no longer evident in Lateral leads Confirmed by Toni Griffin ([id number]) on 12/04/2023 2:45:23 PM Referred By: Alicia Pfeiffer Confirmed By:Toni Griffin
--- NOTE | 2023-12-04 14:55 | Hospitalist Progress Note ---
Date of Service December 04, 2023 Assessment & Plan (1) Nausea & vomiting: Plan: Likely related to Ozempic, hold this for now. Started to have nausea and vomiting with high at dose and starting within a day or 2 of the symptoms Doubt any gastroenteritis without diarrhea and no other involvement in the family Cont supportive care. Clears and advance her diet as tolerated. Getting intravenous fluid and symptomatic management and improving (2) Hypoxia: Plan: Could be secondary to mild congestion given increasing bilateral edema Has been requiring 2 L to maintain saturation Chest CT did not show any pulmonary embolism. No pneumonitis Clinically much better and will try to wean off oxygen (3) New onset atrial fibrillation: Plan: Went from sinus rhythm into atrial fibrillation in the ER. Rate went up to 122 Likely has paroxysmal atrial fibrillation since now is in sinus rhythm Intravenous heparin was started which will cover DVT as well Reverted to sinus rhythm Appreciate cardiology input and recommendation (4) Hypertensive urgency: Plan: Driven partially if not totally by high anxiety state. Ativan PRN, cont Lexapro. Has been on amlodipine, losartan and metoprolol and will continue Cont home antihypertensives. Labetalol IV now. (5) Elevated lactic acid level: Plan: resolved with IVF given in the ER (6) Hypomagnesemia: Plan: Secondary to vomiting Replete with 4gm IV magnesium now and repeat in am. Magnesium level has been normalized (7) Generalized weakness: Plan: 2/2 illness x 3 weeks. PT/OT to evaluate. (8) Osteoarthritis: Plan: Chronic, stable. controls pain with APAP or hydrocodone if severe. Continue. (9) DM type 2 (diabetes mellitus, type 2): Plan: Insulin dependent and on Ozempic freight booker. chronic, A1C is around 9 which is somewhat poor control. Cont with glargine and novolog during this admission. Increase as she starts having more appetite. (10) CKD (chronic kidney disease), stage III: Plan: chronic, stable. Creatinine is at baseline. Creatinine remains at her baseline at 1.26 (11) Hypothyroidism: Plan: chronic, stable. Cont levothyroxine per home regimen. Full Code as discussed with she and her son on admission DVT prophy-heparin Dispo- to PCU. Will get PT and OT evaluation Admission and Anticipated Discharge Date Admission Date: December 03, 2023 Subjective 12/04/2023 The patient was seen and examined in telemetry unit in presence of the family members She has been complaining of nausea and vomiting a day or 2 after restarting Ozempic and a higher dose No diarrhea associated with it and no fever and no chills and nobody else in the family is being affected Also noted to have increasing edema with shortness of breath on exertion Has been feeling a little better since admission Review of Systems Review of Systems: All systems reviewed and are unremarkable except as noted below Physical Exam Physical Exam: Sitting at the edge of the bed without any acute distress Constitutional: well developed, well nourished, + ill appearing and + obese Eyes: PERRL, conjunctivae normal, anicteric sclerae ENMT: external ear and nose normal, oropharynx normal Neck: trachea midline, no thyromegaly Respiratory: + respiratory distress Auscultation: + diminished lung sounds and + crackles (Minimal crackles at the bases) Cardiovascular: Rate/Rhythm: regular rate and regular rhythm; not tachycardic Heart Sounds: normal S1, normal S2 and + murmur Extremities: + edema (1+ edema bilaterally) Gastrointestinal (Abdomen): Inspection/Auscultation: + abdomen distended and normal bowel sounds Percussion/Palpation: abdomen soft; abdomen nontender Musculoskeletal: No acute arthritis involving any of the joint Neurologic: normal touch/pain/proprioception and moves all extremities; no focal motor deficits Results & Data Results & Data Vital Signs (Past 12 Hours) Vital Signs Temp Pulse Pulse Resp BP Pulse Ox Pulse Ox 12/04/23 11:49 96 12/04/23 11:37 36.6 C 67 17 160/69 H 99 12/04/23 08:03 12/04/23 07:39 36.6 C 70 18 167/72 H 97 12/04/23 06:00 71 12/04/23 03:05 36.6 C 72 18 94/65 L 98 Pulse Ox Pulse Ox O2 Del Method O2 Flow Rate O2 Flow Rate O2 Flow Rate O2 Flow Rate 12/04/23 11:49 96 93 3 3 3 12/04/23 11:37 Nasal Cannula 4 12/04/23 08:03 Nasal Cannula 3 12/04/23 07:39 Nasal Cannula 4 12/04/23 06:00 12/04/23 03:05 Nasal Cannula 4 Laboratory Results Short CBC 12/04/23 Range/Units 03:22 WBC 10.67 (4.8-10.8) K/ul Hgb 9.7 L (12.0-16.0) g/dl Hct 30.1 L (37.0-47.0) % Plt Count 273 (130-400) K/uL BMP 12/04/23 03:22 Sodium 138 Potassium 4.8 Chloride 106 Carbon Dioxide 25 BUN 19 Creatinine 1.26 H Glucose 138 H Calcium 8.5 L D Urine 12/03/23 Range/Units 15:00 Urine Color Yellow Urine Appearance Clear (Clear) Urine pH 5.5 (4.5-7.5) Ur Specific [place] 1.013 (1.000-1.030) Urine Protein 2+ H (Negative) Urine Glucose (UA) Negative (Negative) Medications Administered Current Inpatient Medications Hydrocodone Bitart/Acetaminophen (Hydrocodone/Acetamophen 5/325mg Tab) 1 tab PO Q8 PRN PRN Reason: pain,severe Stop: 12/17/23 18:37 Amlodipine Besylate (Amlodipine Besylate 5 Mg Tab) 2.5 mg PO DAILY [facility] Stop: 01/03/24 08:59 Last Admin: 12/04/23 08:49 Dose: 2.5 mg Aspirin (Aspirin 81 Mg Ectab) 81 mg PO QAM [facility] Stop: 01/03/24 08:59 Last Admin: 12/04/23 08:49 Dose: 81 mg Atorvastatin Calcium (Atorvastatin 40 Mg Tab) 40 mg PO QAM [facility] Stop: 01/03/24 08:59 Last Admin: 12/04/23 08:50 Dose: 40 mg Cyanocobalamin (Cyanocobalamin (B-12) 100 Mcg Tablet) 100 mcg PO DAILY [facility] Stop: 01/03/24 08:59 Last Admin: 12/04/23 08:49 Dose: 100 mcg Dextrose (Dextrose 50% 50 Ml Syringe) 25 - 50 ml IV UD PRN; Protocol PRN Reason: Hypoglycemia Protocol Stop: 01/02/24 17:07 Escitalopram Oxalate (Escitalopram Oxalate 20 Mg Tab) 20 mg PO HS [facility] Stop: 01/02/24 20:59 Last Admin: 12/03/23 22:26 Dose: 20 mg Glucagon (Glucagon For Inj 1 Mg Vial) 1 mg SQ UD PRN; Protocol PRN Reason: Hypoglycemia Protocol Stop: 01/02/24 17:07 Glucose (Glucose 10 Tab/Tube) 4 - 8 tab PO UD PRN; Protocol PRN Reason: Hypoglycemia Treatment Stop: 01/02/24 17:07 Glucose (Glucose 40% Gel 15 Gm Tube) 15 - 30 gm PO UD PRN; Protocol PRN Reason: Hypoglycemia Protocol Stop: 01/02/24 17:07 Heparin Sodium/Dextrose (Heparin Sodium/Dextrose) 25,000 units in 500 mls @ 21 mls/hr IV .[id number] [facility]; Protocol Stop: 01/02/24 19:29 Last Titration: 12/04/23 12:28 Dose: 1,050 units/hr, 21 mls/hr Lorazepam 0.25 mg/ Syringe 0.25 mls @ 2 mls/min IV Q8H PRN PRN Reason: Anxiety/Agitation Stop: 01/02/24 18:33 Last Admin: 12/03/23 19:56 Dose: 2 mls/min Insulin Aspart (Insulin Aspart Per Unit Charge) 0 units SC ACHS [facility] Stop: 01/02/24 20:59 Last Admin: 12/04/23 12:59 Dose: 7 units Insulin Glargine (Lantus Per Unit Charge) 10 units SQ BID [facility] Stop: 01/02/24 20:59 Last Admin: 12/04/23 08:48 Dose: 10 units Latanoprost (Latanoprost 0.005% Op Soln 2.5 Ml Btl) 1 drops OPB QPM [facility] Stop: 01/02/24 20:59 Last Admin: 12/04/23 00:44 Dose: 1 drops Levothyroxine Sodium (Levothyroxine Sodium 125 Mcg Tablet) 125 mcg PO DAILYBB [facility] Stop: 01/03/24 06:29 Last Admin: 12/04/23 05:31 Dose: 125 mcg Losartan Potassium (Losartan Potassium 25 Mg Tab) 25 mg PO QAM [facility] Stop: 01/03/24 08:59 Last Admin: 12/04/23 08:49 Dose: 25 mg Metoprolol Succinate (Metoprolol Succ 50mg Ext Rel Tab) 150 mg PO QAM [facility] Stop: 01/03/24 08:59 Last Admin: 12/04/23 08:49 Dose: 150 mg Miscellaneous (Carbohydrates For Hypoglycemia ) 15 - 30 gm PO UD PRN PRN Reason: Hypoglycemia Protocol Stop: 01/02/24 17:07 Ondansetron HCl (Ondansetron Inj 2 Mg/Ml 2 Ml Vial) 4 mg IV Q6H PRN PRN Reason: Nausea Stop: 01/02/24 17:07 Pantoprazole Sodium ([facility] 40 Mg Tab) [facility] Stop: 01/03/24 06:29 Last Admin: 12/04/23 05:31 Dose: 40 mg
--- NOTE | 2023-12-04 15:30 | Cardiology Consultation ---
Date of Consultation December 04, 2023 Assessment & Plan (1) Paroxysmal atrial fibrillation: (2) Hypertensive urgency: (3) Elevated troponin: (4) Nausea & vomiting: Plan 83-year-old female with hypertension, obesity, type 2 diabetes mellitus referred for ER and subsequent hospitalization after symptoms of generalized weakness and malaise upper respiratory infection approximately 3 weeks ago recent symptoms of nausea and vomiting following resumption of Ozempic therapy. Patient notes several day lapse in medical therapies/unable take medications Patient was hypertensive on ER evaluation and transiently lapsed into atrial fibrillation with later spontaneous conversion to sinus rhythm. Patient improving this morning Laboratory studies reflect mild flat elevation in troponin, EKG without acute injury or ischemia. Echocardiogram with preserved LV function. Venous duplex notable for deep venous thrombosis Patient has been able to take medications and has resumed oral therapies ordered prior to hospitalization Issues addressed as follows 1. Paroxysmal atrial fibrillation: Possibly exacerbated by acute throes of illness and hypertension however at risk for recurrence. Would continue metoprolol succinate at 150 mg twice per day. Patient with substantial elevation in [id number] 2 score of at least 5. Discussed with patient and son would recommend continuing anticoagulation indefinitely. Patient has indications for anticoagulation currently due to deep venous thrombosis observed 2. Elevated troponin: EKG and echocardiograph do not suggest acute coronary syndrome and suspect elevated secondary to acute illness, hypertension and transient atrial fibrillation. Would continue current risk factor modification including lipid-lowering therapy and hypertension treatment. 3. Elevated blood pressure/chronic hypertension: Patient off medications and has resumed. Will follow in hospital. Previously on low-dose diuretic discontinued earlier this year suspect would benefit from diuretic chronically History of Present Illness Reason for Consultation: Paroxysmal atrial fibrillation Requesting Physician: Dr. Galindo Attending Physician: Dhruv Galindo MD History of Present Illness Patient is an 83-year-old female with underlying medical issues as listed below with acute concerns 1. Paroxysmal atrial fibrillation newly observed 2. Acute nausea and hyperemesis possible medication induced 3. Hypertension with hypertensive urgency probable diastolic heart failure 4. Type 2 diabetes mellitus 5. Deep venous thrombosis identified this admission. 6. Elevated troponin Patient presented with approximately 3-week history of worsening symptoms including possible upper respiratory infection. Notes resumed Ozempic recently with subsequent difficulties with nausea and emesis hypoglycemia. Sought eval at PCP office and referred to ER. During course of evaluation lapsed into atrial fibrillation transiently with spontaneous conversion to sinus rhythm later No prior history of cardiac disease per patient no history of arrhythmias. Has had racing heart rhythms but generally in the sense of anxiety issues per son No history of syncope or near syncope. No history of chest pain, myocardial infarction, congestive heart failure in the past. Issues of morbid obesity and hypoventilation possible No bleeding issues. Denies melena medic easier dysuria hematuria No history of TIA or stroke Information gained by discussion with patient and review of inpatient and outpatient records. Son at bedside aided in history Allergies Allergy/AdvReac Type Severity Reaction Status Date / Time sertraline [From Zoloft] Allergy itching Verified 12/03/23 16:41 venlafaxine [From Effexor] Allergy itching,panic Verified 12/03/23 16:41 attack lisinopril AdvReac Mild Cough Verified 12/03/23 16:41 baclofen AdvReac Unknown Dizziness Verified 12/03/23 16:41 levofloxacin AdvReac Unknown unkn Verified 12/03/23 16:41 meclizine AdvReac Unknown unkn Verified 12/03/23 16:41 tramadol AdvReac Unknown unkn Verified 12/03/23 16:41 nitroglycerin AdvReac passed Verified 12/03/23 16:41 out,hit head NSAIDS (Non-Steroidal AdvReac WORSENING Verified 12/03/23 16:41 Anti-Inflamma OF RENAL FUNCTION Home Medications Medication Instructions Recorded Confirmed Type atorvastatin 40 mg tablet (Lipitor) 40 mg PO QAM 05/09/19 12/03/23 History cyanocobalamin (vitamin B-12) 100 100 mcg PO DAILY 05/09/19 12/03/23 History mcg tablet (Vitamin B-12) insulin glargine 100 unit/mL (3 26 unit subcut HS 05/09/19 12/03/23 History mL) subcutaneous pen (Basaglar KwikPen U-100 Insulin) latanoprost 0.005 % eye drops 1 drp OPB QPM 05/09/19 12/03/23 History (Xalatan) omeprazole 20 mg capsule,delayed 20 mg PO DAILYBB 05/09/19 12/03/23 History release acetaminophen 650 mg tablet 1,300 mg PO QAM PRN Pain 12/03/23 12/03/23 History amlodipine 2.5 mg tablet 2.5 mg PO DAILY 12/03/23 12/03/23 History aspirin 81 mg tablet,delayed 81 mg PO QAM 12/03/23 12/03/23 History release escitalopram oxalate 20 mg tablet 20 mg PO DAILY 12/03/23 12/03/23 History hydrocodone 5 mg-acetaminophen 325 1 tab PO Q8 PRN pain,severe 12/03/23 12/03/23 History mg tablet insulin aspart U-100 100 unit/mL See Rx Instructions .Route .COMPLEX 12/03/23 12/03/23 History (3 mL) subcutaneous pen (Novolog FlexPen U-100 Insulin aspart) levothyroxine 125 mcg tablet 125 mcg PO DAILYBB 12/03/23 12/03/23 History losartan 25 mg tablet 25 mg PO QAM 12/03/23 12/03/23 History metoprolol succinate 100 mg 150 mg PO QAM 12/03/23 12/03/23 History tablet,extended release 24 hr semaglutide 2 mg/dose (8 mg/3 mL) 2 mg subcut WK 12/03/23 12/03/23 History subcutaneous pen injector (Ozempic) Patient History Medical History (Updated 12/04/23 @ 15:49 by Forest Singletary MD) Diabetes Hypertension CKD (chronic kidney disease) PVD (peripheral vascular disease) Hypothyroidism Lumbar degenerative disc disease History of iron deficiency anemia Esophageal spasm GERD (gastroesophageal reflux disease) Polyneuropathy in diabetes CKD (chronic kidney disease), stage III DM type 2 (diabetes mellitus, type 2) History of palpitations Migraine Rectal bleeding Heart palpitations Hypoxia HTN (hypertension) Osteoarthritis Surgical History H/O colonoscopy H/O esophagogastroduodenoscopy H/O breast biopsy S/P tonsillectomy and adenoidectomy History of hysterectomy S/P appendectomy Hx of cholecystectomy Family History Other Family history non-contributory Social History Smoking Status: Never smoker Tobacco Cessation Education Requested by Patient: No Hx Alcohol Use: No Hx Substance Use: No Preferred Language: Norwegian Communication Ability: Effective Custodial Foreman Required: No Beliefs That Will Affect Care: None marital status: / Current Living Situation: Alone current occupational status: retired Feels Safe at Home: Yes Assistive Devices: Cane Review of Systems Review of Systems: All systems reviewed & are unremarkable except as noted in HPI & below Physical Exam Constitutional: + obese; no acute distress Eyes: PERRL, conjunctivae normal, anicteric sclerae ENMT: external ear and nose normal, oropharynx normal Neck: trachea midline, no thyromegaly Respiratory: Auscultation: + rhonchi (With forced cough anteriorly) Cardiovascular: Rate/Rhythm: regular rate and regular rhythm Heart Sounds: normal S1 and normal S2 Vessels: no JVD Extremities: + edema Gastrointestinal (Abdomen): normal bowel sounds, soft, nontender, no hepatosplenomegaly Musculoskeletal: no cyanosis or clubbing, extremities motor strength 5/5 Results & Data Vital Signs (Past 12 Hours) Vital Signs Temp Pulse Pulse Resp BP Pulse Ox Pulse Ox 12/04/23 14:02 70 12/04/23 11:49 96 12/04/23 11:37 36.6 C 67 17 160/69 H 99 12/04/23 08:03 12/04/23 07:39 36.6 C 70 18 167/72 H 97 12/04/23 06:00 71 Pulse Ox Pulse Ox O2 Del Method O2 Flow Rate O2 Flow Rate O2 Flow Rate O2 Flow Rate 12/04/23 14:02 12/04/23 11:49 96 93 3 3 3 12/04/23 11:37 Nasal Cannula 4 12/04/23 08:03 Nasal Cannula 3 12/04/23 07:39 Nasal Cannula 4 12/04/23 06:00 Laboratory Results Laboratory Results - last 24 hr 12/03/23 12/03/23 12/03/23 15:19 18:16 18:30 WBC RBC Hgb Hct MCV MCH MCHC RDW Std Deviation RDW Coeff of Darlyn Plt Count MPV Heparin Anti-Xa, Unfract Sodium Potassium Chloride Carbon Dioxide Anion Gap BUN Creatinine Est Cr Clr Drug Dosing Est GFR ( Amer) Est GFR (Non-Af Amer) BUN/Creatinine Ratio Glucose POC Glucose 109 H Estimat Average Glucose Hemoglobin A1c Lactate 1.5 Calcium Phosphorus Magnesium Troponin I High Sens 31.5 H TSH 5.157 H Free T4 1.08 Stl C. cayetanensis PCR Stool Rotavirus A PCR Stl Adenov F 40/41 PCR Stool Astrovirus (PCR) Stool Campylobacter PCR Stool Cryptosporidium PCR Stl E.coli Shiga Tox PCR Stl Enterotoxigenic E PCR Stool EPEC (PCR) Stool EAEC (PCR) Stl E. histolytica PCR Stool Giardia Lamblia PCR Stool Salmonella PCR Stool Sapovirus (PCR) Stl P. shigelloides PCR Stl Shigella/EIEC PCR St Y.enterocolitica PCR Stool Vibrio (PCR) Stl Vibrio cholerae PCR Stl Norovirus GI/GII PCR 12/03/23 12/03/23 12/03/23 18:48 22:12 22:32 WBC RBC Hgb Hct MCV MCH MCHC RDW Std Deviation RDW Coeff of Darlyn Plt Count MPV Heparin Anti-Xa, Unfract Sodium Potassium Chloride Carbon Dioxide Anion Gap BUN Creatinine Est Cr Clr Drug Dosing Est GFR ( Amer) Est GFR (Non-Af Amer) BUN/Creatinine Ratio Glucose POC Glucose 237 H Estimat Average Glucose Hemoglobin A1c Lactate 0.9 Calcium Phosphorus Magnesium Troponin I High Sens 55.0 H* D TSH Free T4 Stl C. cayetanensis PCR Stool Rotavirus A PCR Stl Adenov F 40/41 PCR Stool Astrovirus (PCR) Stool Campylobacter PCR Stool Cryptosporidium PCR Stl E.coli Shiga Tox PCR Stl Enterotoxigenic E PCR Stool EPEC (PCR) Stool EAEC (PCR) Stl E. histolytica PCR Stool Giardia Lamblia PCR Stool Salmonella PCR Stool Sapovirus (PCR) Stl P. shigelloides PCR Stl Shigella/EIEC PCR St Y.enterocolitica PCR Stool Vibrio (PCR) Stl Vibrio cholerae PCR Stl Norovirus GI/GII PCR 12/04/23 12/04/23 12/04/23 00:06 03:22 07:15 WBC 10.67 RBC 3.22 L Hgb 9.7 L Hct 30.1 L MCV 93.5 MCH 30.1 MCHC 32.2 RDW Std Deviation 43.8 RDW Coeff of Darlyn 12.8 Plt Count 273 MPV 10.5 Heparin Anti-Xa, Unfract 0.90 H* Sodium 138 Potassium 4.8 Chloride 106 Carbon Dioxide 25 Anion Gap 7 BUN 19 Creatinine 1.26 H Est Cr Clr Drug Dosing 36.8 Est GFR ( Amer) 45.6 Est GFR (Non-Af Amer) 39.4 BUN/Creatinine Ratio 15.1 Glucose 138 H POC Glucose 152 H Estimat Average Glucose 209 Hemoglobin A1c 8.9 H Lactate Calcium 8.5 L D Phosphorus 4.4 Magnesium 2.9 H Troponin I High Sens 46.8 H TSH Free T4 Stl C. cayetanensis PCR Not Detected Stool Rotavirus A PCR Not Detected Stl Adenov F 40/41 PCR Not Detected Stool Astrovirus (PCR) Not Detected Stool Campylobacter PCR Not Detected Stool Cryptosporidium PCR Not Detected Stl E.coli Shiga Tox PCR Not Detected Stl Enterotoxigenic E PCR Not Detected Stool EPEC (PCR) Not Detected Stool EAEC (PCR) Not Detected Stl E. histolytica PCR Not Detected Stool Giardia Lamblia PCR Not Detected Stool Salmonella PCR Not Detected Stool Sapovirus (PCR) Not Detected Stl P. shigelloides PCR Not Detected Stl Shigella/EIEC PCR Not Detected St Y.enterocolitica PCR Not Detected Stool Vibrio (PCR) Not Detected Stl Vibrio cholerae PCR Not Detected Stl Norovirus GI/GII PCR Not Detected 12/04/23 12/04/23 11:18 11:28 WBC RBC Hgb Hct MCV MCH MCHC RDW Std Deviation RDW Coeff of Darlyn Plt Count MPV Heparin Anti-Xa, Unfract 0.70 Sodium Potassium Chloride Carbon Dioxide Anion Gap BUN Creatinine Est Cr Clr Drug Dosing Est GFR ( Amer) Est GFR (Non-Af Amer) BUN/Creatinine Ratio Glucose POC Glucose 153 H Estimat Average Glucose Hemoglobin A1c Lactate Calcium Phosphorus Magnesium Troponin I High Sens TSH Free T4 Stl C. cayetanensis PCR Stool Rotavirus A PCR Stl Adenov F PCR Stool Astrovirus (PCR) Stool Campylobacter PCR Stool Cryptosporidium PCR Stl E.coli Shiga Tox PCR Stl Enterotoxigenic E PCR Stool EPEC (PCR) Stool EAEC (PCR) Stl E. histolytica PCR Stool Giardia Lamblia PCR Stool Salmonella PCR Stool Sapovirus (PCR) Stl P. shigelloides PCR Stl Shigella/EIEC PCR St Y.enterocolitica PCR Stool Vibrio (PCR) Stl Vibrio cholerae PCR Stl Norovirus GI/GII PCR Diagnostic Findings Echocardiogram 12/04/2023 Normal left ventricular size with moderate left ventricular hypertrophy Normal wall motion, EF 60-65% Aortic sclerosis without stenosis Mild mitral and trace tricuspid insufficiency No evidence of pulmonary hypertension
[2023-12-04] MEDS: HYDROCODONE/ACETAMOPHEN 5/325MG TAB PO PRN (18:01)
[2023-12-04] MEDS: Heparin IV Adult Wt-Based Standard w/ INITIAL Bolus Protocol IV SCH (20:55)
[2023-12-05 06:50] LABS: Basophils # (auto) 0.06 K/uL (0.00-0.20); Basophils % (auto) 0.6 %; Eosinophils # (auto) 0.36 K/uL (0.00-0.50); Eosinophils % (auto) 3.7 %; Hematocrit (blood only) 31.9 % (37.0-47.0); Hemoglobin 10.1 g/dl (12.0-16.0); Immature Granulocytes # (auto) 0.03 K/uL (0.01-0.20); Immature Granulocytes % (auto) 0.3 %; Lymphocytes # (auto) 2.24 K/uL (1.20-3.40); Lymphocytes % (auto) 22.9 %; Mean Corpuscular Hemoglobin 30.1 pg (25.0-34.0); Mean Corpuscular Hgb Conc 31.7 g/dL (32.0-36.0); Mean Corpuscular Volume 94.9 fL (80.0-100.0); Mean Platelet Volume 10.8 fL (9.4-12.4); Monocytes # (auto) 1.45 K/uL (0.11-0.59); Monocytes % (auto) 14.8 %; Neutrophils # (auto) 5.65 K/uL (1.40-6.50); Neutrophils % (auto) 57.7 %; Platelet Count 249 K/uL (130-400); RDW Coefficient of Variation 12.6 % (11.5-14.5); RDW Standard Deviation 43.6 fL (36.4-46.3); Red Blood Count 3.36 M/uL (4.20-5.40); White Blood Count 9.79 K/ul (4.8-10.8)
[2023-12-05 07:17] LABS: BUN Creatinine Ratio 12.3 (10-20); Calcium 8.4 mg/dl (8.6-10.3); Creatinine Clr Calc Pharmacy 28.7 ml/min; Est GFR (African American) 35.5 ml/min; Est GFR (Non-African American) 30.6 ml/min; Magnesium 2.4 mg/dl (1.7-2.4); Potassium 4.3 mmol/L (3.5-5.1)
[2023-12-05 08:42] LABS: ANTI-Xa, UFH(UnfractionatedHep 0.62 IU/ml (0.3-0.7)
[2023-12-05] MEDS: APIXABAN 5 MG TABLET PO SCH (12:05)
--- NOTE | 2023-12-05 13:30 | Cardiology Progress Note ---
Date of Service December 05, 2023 Assessment & Plan (1) Paroxysmal atrial fibrillation: (2) Hypertensive urgency: (3) Elevated troponin: (4) Nausea & vomiting: Plan 83-year-old female with hypertension, obesity, type 2 diabetes mellitus referred for ER and subsequent hospitalization after symptoms of generalized weakness and malaise upper respiratory infection approximately 3 weeks ago recent symptoms of nausea and vomiting following resumption of Ozempic therapy. Patient notes several day lapse in medical therapies/unable take medications Patient was hypertensive on ER evaluation and transiently lapsed into atrial fibrillation with later spontaneous conversion to sinus rhythm. Patient improving this morning Laboratory studies reflect mild flat elevation in troponin, EKG without acute injury or ischemia. Echocardiogram with preserved LV function. Venous duplex notable for deep venous thrombosis Patient has been able to take medications and has resumed oral therapies ordered prior to hospitalization Issues addressed as follows 1. Paroxysmal atrial fibrillation: Possibly exacerbated by acute throes of illness and hypertension however at risk for recurrence. Would continue metoprolol succinate at 150 mg twice per day. Patient with substantial elevation in [id number] 2 score of at least 5. Discussed with patient and son would recommend continuing anticoagulation indefinitely. Patient has indications for anticoagulation currently due to deep venous thrombosis observed 2. Elevated troponin: EKG and echocardiograph do not suggest acute coronary syndrome and suspect elevated secondary to acute illness, hypertension and transient atrial fibrillation. Would continue current risk factor modification including lipid-lowering therapy and hypertension treatment. 3. Elevated blood pressure/chronic hypertension: Patient off medications and lu s resumed. Will follow in hospital. Previously on low-dose diuretic discontinued earlier this year suspect would benefit from diuretic chronically but stopped as outpatient due to elevated potassium and renal dysfunction 12/05/2023 Clinically improved. Anticoagulated now with apixaban. Chronic anemia present Blood pressure still labile driven in part secondary to chronic anxiety issues with patient. Will titrate blood pressure control slightly with amlodipine at the risk of worsening peripheral edema changing to 5 mg nightly. Begin with 2.5 mg this p.m. Discussed sodium restriction No chest pain or symptoms suggest ischemia Admission and Anticipated Discharge Date Admission Date: December 03, 2023 Subjective Patient seen and examined, chart, medications, telemetry reviewed. Overall feels dramatically improved in comparison to day prior Companied by daughter today Patient still with issues with nocturnal anxiety. No chest pains, tachypalpitations. No orthopnea, mild peripheral edema present Review of Systems Review of Systems: All systems reviewed & are unremarkable except as noted in Subjective Physical Exam Constitutional: + obese; no acute distress Eyes: PERRL, conjunctivae normal, anicteric sclerae ENMT: external ear and nose normal, oropharynx normal Neck: trachea midline, no thyromegaly Respiratory: Auscultation: + rhonchi (With forced cough anteriorly) Cardiovascular: Rate/Rhythm: regular rate and regular rhythm Heart Sounds: normal S1 and normal S2 Vessels: no JVD Extremities: + edema (Trace pedal) Gastrointestinal (Abdomen): normal bowel sounds, soft, nontender, no he patosplenomegaly Musculoskeletal: no cyanosis or clubbing, extremities motor strength 5/5 Results & Data Vital Signs (Past 12 Hours) Vital Signs Temp Pulse Pulse Resp BP Pulse Ox O2 Del Method 12/05/23 11:39 36.5 C 67 18 170/67 H 94 Nasal Cannula 12/05/23 10:54 99 Room Air 12/05/23 08:59 Nasal Cannula 12/05/23 07:49 72 12/05/23 07:39 36.6 C 70 20 178/74 H 95 Nasal Cannula 12/05/23 04:09 36.6 C 74 20 167/64 H 96 Nasal Cannula O2 Flow Rate 12/05/23 11:39 2 12/05/23 10:54 12/05/23 08:59 2 12/05/23 07:49 12/05/23 07:39 2 12/05/23 04:09 1 Laboratory Results Laboratory Results - last 24 hr 12/04/23 12/04/23 12/04/23 16:12 16:41 20:03 WBC RBC Hgb Hct MCV MCH MCHC RDW Std Deviation RDW Coeff of Darlyn Plt Count MPV Immature Gran % (Auto) Neut % (Auto) Lymph % (Auto) [place] % (Auto) Eos % (Auto) Baso % (Auto) Neut # (Auto) Lymph # (Auto) [place] # (Auto) Eos # (Auto) Baso # (Auto) Immature Gran # (Auto) Heparin Anti-Xa, Unfract Sodium Potassium Chloride Carbon Dioxide Anion Gap BUN Creatinine Est Cr Clr Drug Dosing Est GFR ( Amer) Est GFR (Non-Af Amer) BUN/Creatinine Ratio Glucose POC Glucose 71 97 175 H Calcium Magnesium 12/05/23 12/05/23 12/05/23 05:42 07:25 07:59 WBC 9.79 RBC 3.36 L Hgb 10.1 L Hct 31.9 L MCV 94.9 MCH 30.1 MCHC 31.7 L RDW Std Deviation 43.6 RDW Coeff of Darlyn 12.6 Plt Count 249 MPV 10.8 Immature Gran % (Auto) 0.3 Neut % (Auto) 57.7 Lymph % (Auto) 22.9 [place] % (Auto) 14.8 Eos % (Auto) 3.7 Baso % (Auto) 0.6 Neut # (Auto) 5.65 Lymph # (Auto) 2.24 [place] # (Auto) 1.45 H Eos # (Auto) 0.36 Baso # (Auto) 0.06 Immature Gran # (Auto) 0.03 Heparin Anti-Xa, Unfract Cancelled 0.62 Sodium 136 Potassium 4.3 Chloride 104 Carbon Dioxide 26 Anion Gap 6 BUN 19 Creatinine 1.55 H Est Cr Clr Drug Dosing 28.7 Est GFR ( Amer) 35.5 Est GFR (Non-Af Amer) 30.6 BUN/Creatinine Ratio 12.3 Glucose 166 H POC Glucose 202 H Calcium 8.4 L Magnesium 2.4 12/05/23 11:24 WBC RBC Hgb Hct MCV MCH MCHC RDW Std Deviation RDW Coeff of Darlyn Plt Count MPV Immature Gran % (Auto) Neut % (Auto) Lymph % (Auto) [place] % (Auto) Eos % (Auto) Baso % (Auto) Neut # (Auto) Lymph # (Auto) [place] # (Auto) Eos # (Auto) Baso # (Auto) Immature Gran # (Auto) Heparin Anti-Xa, Unfract Sodium Potassium Chloride Carbon Dioxide Anion Gap BUN Creatinine Est Cr Clr Drug Dosing Est GFR ( Amer) Est GFR (Non-Af Amer) BUN/Creatinine Ratio Glucose POC Glucose 148 H Calcium Magnesium
--- NOTE | 2023-12-05 13:47 | Hospitalist Progress Note ---
Date of Service December 04, 2023 Assessment & Plan (1) Nausea & vomiting: Plan: Likely related to Ozempic, hold this for now. Started to have nausea and vomiting with high at dose and starting within a day or 2 of the symptoms Doubt any gastroenteritis without diarrhea and no other involvement in the family Cont supportive care. Clears and advance her diet as tolerated. Getting intravenous fluid and symptomatic management and improving No more nausea and or vomiting Has been tolerating diet (2) Hypoxia: Plan: Could be secondary to mild congestion given increasing bilateral edema Has been requiring 2 L to maintain saturation Chest CT did not show any pulmonary embolism. No pneumonitis Clinically much better and will try to wean off oxygen Still requiring 2 L of oxygen via nasal cannula to maintain saturation (3) New onset atrial fibrillation: Plan: Went from sinus rhythm into atrial fibrillation in the ER. Rate went up to 122 Likely has paroxysmal atrial fibrillation since now is in sinus rhythm Intravenous heparin was started which will cover DVT as well Reverted to sinus rhythm Appreciate cardiology input and recommendation Rate is controlled with current dose of metoprolol succinate at 150 mg once daily (4) Hypertensive urgency: Plan: Driven partially if not totally by high anxiety state. Ativan PRN, cont Lexapro. Has been on amlodipine, losartan and metoprolol and will continue Cont home antihypertensives. Labetalol IV now. A small dose of amlodipine has been added from this evening (5) Elevated lactic acid level: Plan: resolved with IVF given in the ER (6) Hypomagnesemia: Plan: Secondary to vomiting Replete with 4gm IV magnesium now and repeat in am. Magnesium level has been normalized (7) Generalized weakness: Plan: 2/2 illness x 3 weeks. PT/OT to evaluate. (8) Osteoarthritis: Plan: Chronic, stable. controls pain with APAP or hydrocodone if severe. Continue. (9) DM type 2 (diabetes mellitus, type 2): Plan: Insulin dependent and on Ozempic terminal gauger. chronic, A1C is around 9 which is somewhat poor control. Cont with glargine and novolog during this admission. Increase as she starts having more appetite. (10) CKD (chronic kidney disease), stage III: Plan: chronic, stable. Creatinine is at baseline. Creatinine remains at her baseline at 1.26 Creatinine is slightly up at 1.55 (11) Hypothyroidism: Plan: chronic, stable. Cont levothyroxine per home regimen. Full Code as discussed with she and her son on admission DVT prophy-heparin Dispo- to PCU. Will get PT and OT evaluation Likely discharge in a day or 2 Admission and Anticipated Discharge Date Admission Date: December 03, 2023 Subjective 12/04/2023 The patient was seen and examined in telemetry unit in presence of the family members She has been complaining of nausea and vomiting a day or 2 after restarting Ozempic and a higher dose No diarrhea associated with it and no fever and no chills and nobody else in the family is being affected Also noted to have increasing edema with shortness of breath on exertion Has been feeling a little better since admission 12/05/2023 The patient was seen and examined in telemetry unit in presence of the daughter She has been feeling little better but complains to weakness No palpitation, chest pain or shortness of breath She has had infiltration in the left forearm with adjoining redness and tenderness Review of Systems 2 Review of Systems: All systems reviewed and are unremarkable except as noted below Physical Exam Physical Exam: Sitting at the edge of the bed without any acute distress Constitutional: well developed, well nourished, + ill appearing and + obese Eyes: PERRL, conjunctivae normal, anicteric sclerae ENMT: external ear and nose normal, oropharynx normal Neck: trachea midline, no thyromegaly Respiratory: + respiratory distress Auscultation: + diminished lung sounds and + crackles (Minimal crackles at the bases) Cardiovascular: Rate/Rhythm: regular rate and regular rhythm; not tachycardic Heart Sounds: normal S1, normal S2 and + murmur Extremities: + edema (1+ edema bilaterally) Gastrointestinal (Abdomen): Inspection/Auscultation: + abdomen distended and normal bowel sounds Percussion/Palpation: abdomen soft; abdomen nontender Musculoskeletal: No acute arthritis involving any of the joint. Left forearm ventral aspect is red and swollen with increased local temperature and tenderness Neurologic: normal touch/pain/proprioception and moves all extremities; no focal motor deficits Lymphatic: no cervical or axillary lymphadenopathy Results & Data Results & Data Vital Signs (Past 12 Hours) Vital Signs Temp Pulse Pulse Resp BP Pulse Ox Pulse Ox 12/04/23 11:49 96 12/04/23 11:37 36.6 C 67 17 160/69 H 99 12/04/23 08:03 12/04/23 07:39 36.6 C 70 18 167/72 H 97 12/04/23 06:00 71 12/04/23 03:05 36.6 C 72 18 94/65 L 98 Pulse Ox Pulse Ox O2 Del Method O2 Flow Rate O2 Flow Rate O2 Flow Rate O2 Flow Rate 12/04/23 11:49 96 93 3 3 3 12/04/23 11:37 Nasal Cannula 4 12/04/23 08:03 Nasal Cannula 3 12/04/23 07:39 Nasal Cannula 4 12/04/23 06:00 12/04/23 03:05 Nasal Cannula 4 Laboratory Results Short CBC 12/05/23 Range/Units 05:42 WBC 9.79 (4.8-10.8) K/ul Hgb 10.1 L (12.0-16.0) g/dl Hct 31.9 L (37.0-47.0) % Plt Count 249 (130-400) K/uL BMP 12/05/23 05:42 Sodium 136 Potassium 4.3 Chloride 104 Carbon Dioxide 26 BUN 19 Creatinine 1.55 H Glucose 166 H Calcium 8.4 L Medications Administered Current Inpatient Medications Hydrocodone Bitart/Acetaminophen (Hydrocodone/Acetamophen 5/325mg Tab) 1 tab PO Q8 PRN PRN Reason: pain,severe Stop: 12/17/23 18:37 Last Admin: 12/05/23 08:24 Dose: 1 tab Amlodipine Besylate (Amlodipine Besylate 5 Mg Tab) 2.5 mg PO DAILY [facility] Stop: 01/03/24 08:59 Last Admin: 12/05/23 08:21 Dose: 2.5 mg Amlodipine Besylate (Amlodipine Besylate 5 Mg Tab) 2.5 mg PO QPM [facility] Stop: 01/04/24 20:59 Apixaban (Apixaban 5 Mg Tablet) 10 mg PO BID [facility] Stop: 12/11/23 21:01 Last Admin: 12/05/23 12:05 Dose: 10 mg Aspirin (Aspirin 81 Mg Ectab) 81 mg PO QAM [facility] Stop: 01/03/24 08:59 Last Admin: 12/05/23 08:21 Dose: 81 mg Atorvastatin Calcium (Atorvastatin 40 Mg Tab) 40 mg PO QAM [facility] Stop: 01/03/24 08:59 Last Admin: 12/05/23 08:21 Dose: 40 mg Cyanocobalamin (Cyanocobalamin (B-12) 100 Mcg Tablet) 100 mcg PO DAILY [facility] Stop: 01/03/24 08:59 Last Admin: 12/05/23 08:20 Dose: 100 mcg Dextrose (Dextrose 50% 50 Ml Syringe) 25 - 50 ml IV UD PRN; Protocol PRN Reason: Hypoglycemia Protocol Stop: 01/02/24 17:07 Escitalopram Oxalate (Escitalopram Oxalate 20 Mg Tab) 20 mg PO HS [facility] Stop: 01/02/24 20:59 Last Admin: 12/04/23 20:39 Dose: 20 mg Glucagon (Glucagon For Inj 1 Mg Vial) 1 mg SQ UD PRN; Protocol PRN Reason: Hypoglycemia Protocol Stop: 01/02/24 17:07 Glucose (Glucose 10 Tab/Tube) 4 - 8 tab PO UD PRN; Protocol PRN Reason: Hypoglycemia Treatment Stop: 01/02/24 17:07 Glucose (Glucose 40% Gel 15 Gm Tube) 15 - 30 gm PO UD PRN; Protocol PRN Reason: Hypoglycemia Protocol Stop: 01/02/24 17:07 Lorazepam 0.25 mg/ Syringe 0.25 mls @ 2 mls/min IV Q8H PRN PRN Reason: Anxiety/Agitation Stop: 01/02/24 18:33 Last Admin: 12/03/23 19:56 Dose: 2 mls/min Insulin Aspart (Insulin Aspart Per Unit Charge) 0 units SC ACHS [facility] Stop: 01/02/24 20:59 Last Admin: 12/05/23 12:05 Dose: 7 units Insulin Glargine (Lantus Per Unit Charge) 10 units SQ BID [facility] Stop: 01/02/24 20:59 Last Admin: 12/05/23 08:20 Dose: 10 units Latanoprost (Latanoprost 0.005% Op Soln 2.5 Ml Btl) 1 drops OPB QPM [facility] Stop: 01/02/24 20:59 Last Admin: 12/04/23 20:39 Dose: 1 drops Levothyroxine Sodium (Levothyroxine Sodium 125 Mcg Tablet) 125 mcg PO DAILYBB [facility] Stop: 01/03/24 06:29 Last Admin: 12/05/23 06:15 Dose: 125 mcg Losartan Potassium (Losartan Potassium 25 Mg Tab) 25 mg PO QAM [facility] Stop: 01/03/24 08:59 Last Admin: 12/05/23 08:21 Dose: 25 mg Metoprolol Succinate (Metoprolol Succ 50mg Ext Rel Tab) 150 mg PO QAM [facility] Stop: 01/03/24 08:59 Last Admin: 12/05/23 08:20 Dose: 150 mg Miscellaneous (Carbohydrates For Hypoglycemia ) 15 - 30 gm PO UD PRN PRN Reason: Hypoglycemia Protocol Stop: 01/02/24 17:07 Ondansetron HCl (Ondansetron Inj 2 Mg/Ml 2 Ml Vial) 4 mg IV Q6H PRN PRN Reason: Nausea Stop: 01/02/24 17:07 Pantoprazole Sodium ([facility] 40 Mg Tab) [facility]: 01/03/24 06:29 Last Admin: 12/05/23 06:15 Dose: 40 mg
[2023-12-05] MEDS: LABETALOL HCL IV 5 MG/ML 20ML IV STA (19:49)
[2023-12-05] MEDS: amLODIPine BESYLATE 5 MG TAB PO SCH (20:10)
[2023-12-05] MEDS: cloNIDine HCL 0.1 MG TAB PO ONE (22:23)
[2023-12-06] MEDS: HYDROCORTISONE 1% OINT 30 GM TUBE EXT PRN (00:03)
[2023-12-06 08:27] LABS: Calcium 8.6 mg/dl (8.6-10.3); Creatinine Clr Calc Pharmacy 27.7 ml/min; Est GFR (African American) 33.9 ml/min; Est GFR (Non-African American) 29.3 ml/min; Potassium 4.5 mmol/L (3.5-5.1)
[2023-12-06 08:50] LABS: ANTI-Xa, UFH(UnfractionatedHep > 1.50 IU/ml (0.3-0.7)
--- NOTE | 2023-12-06 13:07 | Hospitalist Progress Note ---
Date of Service December 06, 2023 Assessment & Plan (1) Nausea & vomiting: Plan: Likely related to Ozempic, hold this for now. Started to have nausea and vomiting with high at dose and starting within a day or 2 of the symptoms Doubt any gastroenteritis without diarrhea and no other involvement in the family Cont supportive care. Clears and advance her diet as tolerated. Getting intravenous fluid and symptomatic management and improving No more nausea and or vomiting Has been tolerating diet No more episodes of nausea no vomiting (2) Hypoxia: Plan: Could be secondary to mild congestion given increasing bilateral edema Has been requiring 2 L to maintain saturation Chest CT did not show any pulmonary embolism. No pneumonitis Clinically much better and will try to wean off oxygen Still requiring 2 L of oxygen via nasal cannula to maintain saturation 2 steps O2 saturation test resulted as no oxygen is required She will be discharged home this afternoon (3) New onset atrial fibrillation: Plan: Went from sinus rhythm into atrial fibrillation in the ER. Rate went up to 122 Likely has paroxysmal atrial fibrillation since now is in sinus rhythm Intravenous heparin was started which will cover DVT as well Reverted to sinus rhythm Appreciate cardiology input and recommendation Rate is controlled with current dose of metoprolol succinate at 150 mg once daily Rate is controlled with current medications Discussed with the commissioned security officer and a small dose of Lasix will be given for bilateral leg edema (4) Hypertensive urgency: Plan: Driven partially if not totally by high anxiety state. Ativan PRN, cont Lexapro. Has been on amlodipine, losartan and metoprolol and will continue Cont home antihypertensives. Labetalol IV now. A small dose of amlodipine has been added from this evening Blood pressure medications were adjusted as per commissioned security officer (5) Elevated lactic acid level: Plan: resolved with IVF given in the ER (6) Hypomagnesemia: Plan: Secondary to vomiting Replete with 4gm IV magnesium now and repeat in am. Magnesium level has been normalized (7) Generalized weakness: Plan: 2/2 illness x 3 weeks. PT/OT to evaluate. (8) Osteoarthritis: Plan: Chronic, stable. controls pain with APAP or hydrocodone if severe. Continue. (9) DM type 2 (diabetes mellitus, type 2): Plan: Insulin dependent and on Ozempic intermediate card tender. chronic, A1C is around 9 which is somewhat poor control. Cont with glargine and novolog during this admission. Increase as she starts having more appetite. (10) CKD (chronic kidney disease), stage III: Plan: chronic, stable. Creatinine is at baseline. Creatinine remains at her baseline at 1.26 Creatinine is slightly up at 1.55 (11) Hypothyroidism: Plan: chronic, stable. Cont levothyroxine per home regimen. Full Code as discussed with she and her son on admission DVT prophy-heparin Dispo- to PCU. She was discharged this afternoon Ozempic was discontinued She will have 20 mg Lasix every other day She was given a small dose of Ativan as per her and her family member's request to relieve anxiety on top of Lexapro Admission and Anticipated Discharge Date Admission Date: December 03, 2023 Subjective 12/04/2023 The patient was seen and examined in telemetry unit in presence of the family members She has been complaining of nausea and vomiting a day or 2 after restarting Ozempic and a higher dose No diarrhea associated with it and no fever and no chills and nobody else in the family is being affected Also noted to have increasing edema with shortness of breath on exertion Has been feeling a little better since admission 12/05/2023 The patient was seen and examined in telemetry unit in presence of the daughter She has been feeling little better but complains to weakness No palpitation, chest pain or shortness of breath She has had infiltration in the left forearm with adjoining redness and tenderness 12/06/2023 The patient was seen and examined in telemetry unit in presence of the family members She has been stable Denies any symptoms Has had 2 steps O2 saturation test and she passed She will be discharged home this afternoon Review of Systems Review of Systems: All systems reviewed and are unremarkable except as noted below Physical Exam Physical Exam: Sitting at the edge of the bed without any acute distress Constitutional: well developed, well nourished, + ill appearing and + obese Eyes: PERRL, conjunctivae normal, anicteric sclerae ENMT: external ear and nose normal, oropharynx normal Neck: trachea midline, no thyromegaly Respiratory: + respiratory distress Auscultation: + diminished lung sounds and + crackles (Minimal crackles at the bases) Cardiovascular: Rate/Rhythm: regular rate and regular rhythm; not tachycardic Heart Sounds: normal S1, normal S2 and + murmur Extremities: + edema (1+ edema bilaterally) Gastrointestinal (Abdomen): Inspection/Auscultation: + abdomen distended and normal bowel sounds Percussion/Palpation: abdomen soft; abdomen nontender Neurologic: normal touch/pain/proprioception and moves all extremities; no focal motor deficits Lymphatic: no cervical or axillary lymphadenopathy Results & Data Results & Data Vital Signs (Past 12 Hours) Vital Signs Temp Pulse Pulse Pulse Pulse Pulse Resp 12/06/23 11:50 36.6 C 67 20 12/06/23 10:39 81 75 12/06/23 09:00 12/06/23 07:29 69 12/06/23 07:14 36.3 C L 72 20 12/06/23 04:49 36.8 C 20 Resp Resp BP BP Pulse Ox Pulse Ox Pulse Ox 12/06/23 11:50 149/69 H 97 12/06/23 10:39 20 16 95 93 12/06/23 09:00 12/06/23 07:29 12/06/23 07:14 161/72 H 97 12/06/23 04:49 169/70 H 98 O2 Del Method O2 Flow Rate 12/06/23 11:50 Nasal Cannula 2 12/06/23 10:39 12/06/23 09:00 Nasal Cannula 2 12/06/23 07:29 12/06/23 07:14 Nasal Cannula 2 12/06/23 04:49 Nasal Cannula 2
--- NOTE | 2023-12-07 08:49 | Discharge Summary ---
Date of Service December 06, 2023 Admission HPI Per Admitting Provider 83-year-old diabetic female presents with 2.5 weeks of coughing and then began vomiting with significant nausea and persistent vomiting since Friday evening, a couple of days ago. She has no appetite. She is on insulin. She was recently out of Ozempic for 2 months and restarted 2 mg this last Friday, which is when her vomiting started. Shortness of breath and lower extremity edema is also reported in the past 3 weeks and generalized weakness. She lives alone and is able to ambulate with a cane. no abd pain no diarrhea, nauseated, worse and worse and then throwing up most of the nights tup (soda) helped but then threw up again she has been around lots of people for the holidays all three weeks since coughing she has felt short of breath--feels the coughing is improved. she is hypoxic today and ER physician reports that she was 82% on RA at one point She is doing fine on 2LPM oxygen supplementation Lexapro was recently decreased from 20mg to 10mg per her son, who is at bedside and assists with the history. He feels this worsened her anxiety which was typically under good control prior to this. feet swelling for the past week. No swelling or edema is present on exam today Patient denies any pain in her calves or thighs bilaterally. no chest pain no urinary symptoms normal BMs but hasn't moved her bowels in the last few days hasn't eaten anything x toast this am. Last vomited at 0600 this am. Open to try some broth at this point. ramen noodles and broth last night, able to hold it down . Admission Exam Per Admitting Provider Physical Exam: CONSTITUTIONAL: obese, vitals as above, BP went from 175 systolic to 195 systolic since I have been in the room, patient appears anxious EYES: PERRL, normal conjunctivae, no scleral icterus ENT: external ear and nose normal,MMM NECK: trachea midline RESPIRATORY: clear to auscultation bilaterally, no crackles, rales or wheezes, normal respiratory effort CARDIOVASCULAR: tachy rate that is irregular with irreg rhythm, S1 and 2 heard without murmurs, gallops or rubs, no JVD, no peripheral edema CHEST: inspection of chest was normal GASTROINTESTINAL: soft, nontender, ND, no guarding MUSCULOSKELETAL: generalized weakness, head is normocephalic and atraumatic SKIN: warm and dry NEUROLOGIC: CN 2-12 grossly intact, no sensory deficit, normal cognition, normal speech, no tremor PSYCHIATRIC: alert cooperative and oriented to person, place and time. ++anxious, makes good eye contact, language grossly intact, recent and remote memory grossly intact. Principal Diagnosis Intractable nausea and vomiting likely secondary to Ozempic, new onset atrial fibrillation, hypertensive urgency, anxiety Discharge Exam Sitting at the edge of the bed without any acute distress Constitutional well developed, well nourished, + ill appearing and + obese Eyes PERRL, conjunctivae normal, anicteric sclerae ENMT external ear and nose normal, oropharynx normal Neck trachea midline, no thyromegaly Respiratory + respiratory distress Auscultation: + diminished lung sounds and + crackles (Minimal crackles at the bases) Cardiovascular Rate/Rhythm: regular rate and regular rhythm; not tachycardic Heart Sounds: normal S1, normal S2 and + murmur Extremities: + edema (1+ edema bilaterally) Gastrointestinal (Abdomen) Inspection/Auscultation: + abdomen distended and normal bowel sounds Percussion/Palpation: abdomen soft; abdomen nontender Neurologic normal touch/pain/proprioception and moves all extremities; no focal motor deficits Lymphatic no cervical or axillary lymphadenopathy Discharge Data Allergies Allergy/AdvReac Type Severity Reaction Status Date / Time sertraline [From Zoloft] Allergy itching Verified 12/03/23 16:41 venlafaxine [From Effexor] Allergy itching,panic Verified 12/03/23 16:41 attack lisinopril AdvReac Mild Cough Verified 12/03/23 16:41 baclofen AdvReac Unknown Dizziness Verified 12/03/23 16:41 levofloxacin AdvReac Unknown unkn Verified 12/03/23 16:41 meclizine AdvReac Unknown unkn Verified 12/03/23 16:41 tramadol AdvReac Unknown unkn Verified 12/03/23 16:41 nitroglycerin AdvReac passed Verified 12/03/23 16:41 out,hit head NSAIDS (Non-Steroidal AdvReac WORSENING Verified 12/03/23 16:41 Anti-Inflamma OF RENAL FUNCTION Consultations 12/03/23 16:47 ED Decision to Admit Stat 12/03/23 18:35 Consult Cardiology Routine Ordered Studies 12/03/23 14:08 CT Abd and Pelvis [CT abd pelvis IV con only] Stat 12/03/23 16:46 CT for pulmonary embolism PE [CT angio chest PE protocol] Stat 12/03/23 19:20 US venous doppler [facility] Urgent Hospital Course (1) Nausea & vomiting: Likely related to Ozempic, hold this for now. Started to have nausea and vomiting with high at dose and starting within a day or 2 of the symptoms Doubt any gastroenteritis without diarrhea and no other involvement in the family Cont supportive care. Clears and advance her diet as tolerated. Getting intravenous fluid and symptomatic management and improving No more nausea and or vomiting Has been tolerating diet No more episodes of nausea no vomiting (2) Hypoxia: Could be secondary to mild congestion given increasing bilateral edema Has been requiring 2 L to maintain saturation Chest CT did not show any pulmonary embolism. No pneumonitis Clinically much better and will try to wean off oxygen Still requiring 2 L of oxygen via nasal cannula to maintain saturation 2 steps O2 saturation test resulted as no oxygen is required She will be discharged home this afternoon (3) New onset atrial fibrillation: Went from sinus rhythm into atrial fibrillation in the ER. Rate went up to 122 Likely has paroxysmal atrial fibrillation since now is in sinus rhythm Intravenous heparin was started which will cover DVT as well Reverted to sinus rhythm Appreciate cardiology input and recommendation Rate is controlled with current dose of metoprolol succinate at 150 mg once daily Rate is controlled with current medications Discussed with the outreach specialist and a small dose of Lasix will be given for bilateral leg edema (4) Hypertensive urgency: Driven partially if not totally by high anxiety state. Ativan PRN, cont Lexapro. Has been on amlodipine, losartan and metoprolol and will continue Cont home antihypertensives. Labetalol IV now. A small dose of amlodipine has been added from this evening Blood pressure medications were adjusted as per outreach specialist (5) Elevated lactic acid level: resolved with IVF given in the ER (6) Hypomagnesemia: Secondary to vomiting Replete with 4gm IV magnesium now and repeat in am. Magnesium level has been normalized (7) Generalized weakness: 2/2 illness x 3 weeks. PT/OT to evaluate. (8) Osteoarthritis: Chronic, stable. controls pain with APAP or hydrocodone if severe. Continue. (9) DM type 2 (diabetes mellitus, type 2): Insulin dependent and on Ozempic fci. chronic, A1C is around 9 which is somewhat poor control. Cont with glargine and novolog during this admission. Increase as she starts having more appetite. (10) CKD (chronic kidney disease), stage III: chronic, stable. Creatinine is at baseline. Creatinine remains at her baseline at 1.26 Creatinine is slightly up at 1.55 (11) Hypothyroidism: chronic, stable. Cont levothyroxine per home regimen. Full Code as discussed with she and her son on admission DVT prophy-heparin Dispo- to PCU. She was discharged this afternoon Ozempic was discontinued She will have 20 mg Lasix every other day She was given a small dose of Ativan as per her and her family member's request to relieve anxiety on top of Lexapro Total Time Total Time Spent Total Time Spent (In Minutes): 45 minutes Discharge Plan Discharge Items Patient Disposition: Home - Self-Care Reason For Visit: INTRACTABLE NAUSEA, HYPOXIA Discharge Diagnosis: Intractable nausea and vomiting likely secondary to Ozempic, new onset atrial fibrillation, hypertensive urgency, anxiety Condition on Discharge: Good Activity: Resume your previous activity Non-emergency contact: Primary Care Provider Call non-emergency contact if: you have any medication questions and your symptoms worsen Follow-up/Referrals: Alicia Pfeiffer DO [Primary Care Provider] - (Date & Time 12/15/2023 12:20 PM Provider Rosy Renee MD Department Family Medicine [facility] ) Diet: Heart Healthy and Low Sodium (2gm) Addtl Attending Provider Instructions: Please take precautions to avoid falls Take your medications as advised Take Eliquis as advised You will be taking furosemide 20 mg every other day for your edema of the legs Try to use less of Ativan for anxiety Please give appointments with your healthcare provider Pending Studies at Discharge: No Stand-Alone Forms: [email or web address], Smoking Cessation Medications and DC Order Prescriptions: New amlodipine [Norvasc] 5 mg Tablet 5 mg PO QPM Qty: 30 0RF furosemide [Lasix] 20 mg tablet 20 mg PO Q OTHER DAY Qty: 30 0RF lorazepam [Ativan] 0.5 mg tablet 0.5 mg PO Q12H PRN (Reason: anxiety) Qty: 30 0RF Eliquis 5 mg (74 tabs) tablets,dose pack 5 mg PO BID Qty: 74 0RF Rx Instructions: 2 tabs twice daily for 10 doses from this evening and then 1 tab twice daily to continue Continued latanoprost [Xalatan] 0.005 % drops 1 drp OPB QPM atorvastatin [Lipitor] 40 mg tablet 40 mg PO QAM cyanocobalamin (vitamin B-12) [Vitamin B-12] 100 mcg Tablet 100 mcg PO DAILY omeprazole 20 mg Capsule,Delayed Release(Dr/Ec) 20 mg PO DAILYBB insulin glargine [Basaglar KwikPen U-100 Insulin] 100 unit/mL (3 mL) insulin pen 26 unit subcut HS escitalopram oxalate 20 mg tablet 20 mg PO DAILY levothyroxine 125 mcg tablet 125 mcg PO DAILYBB aspirin 81 mg Tablet,Delayed Release (Dr/Ec) 81 mg PO QAM metoprolol succinate 100 mg tablet extended release 24 hr 150 mg PO QAM losartan 25 mg tablet 25 mg PO QAM hydrocodone-acetaminophen 5-325 mg tablet 1 tab PO Q8 PRN (Reason: pain,severe) insulin aspart U-100 [Novolog FlexPen U-100 Insulin] 100 unit/mL (3 mL) insulin pen See Rx Instructions .ROUTE .COMPLEX Rx Instructions: per pt sliding scale acetaminophen 650 mg Tablet 1,300 mg PO QAM PRN (Reason: Pain) Discontinued amlodipine 2.5 mg tablet 2.5 mg PO DAILY Ozempic 2 mg/dose (8 mg/3 mL) pen injector 2 mg SUBCUT WK Discharge Orders: Discharge Order (Routine); Ordered 12/06/23 Ordered By: Dhruv Mendoza/Other Patient Handouts: Managing Type 2 Diabetes Admission Data Admit Date/Time: 12/03/23 16:52 Attending Provider: Dhruv Galindo Admit Provider: Mary Osorio Primary Care Provider: Alicia Pfeiffer Other Providers: Mary Osorio; Forest Singletary Other Interventions: Discharge Summary Assessment (RN) Last Done: 12/06/23 13:36
== END 2023-12-06 14:18 | disposition home or self-care (01) | DRG 391 ==
LOC: ED 12:36 → EDINP 16:52 → INTOOBSV 16:52 → SUATTDRO 16:52 → 2S 17:09